=== PATIENT | female | born 1955 | race Caucasian/White ===

== ENCOUNTER 2023-08-19 08:51 | Day surgery (SDC) | payer BC, MEDICARE ==
[2023-08-14 13:09] VITALS: BMI 31.6
[~2023-08-19 08:51] MED LIST: LACTATED RINGERS 1,000 ML IV SCH
[2023-08-19] MEDS ORDERED: LIDOCAINE 1% (10MG/ML) FOR IV START INTRADERMA ONE (09:47)
[2023-08-19 09:51] VITALS: TEMP 97.9
[2023-08-19 09:57] LABS: Glucose,Whole Blood 156 mg/dL (70-110)
[2023-08-19] MEDS ORDERED: PROPOFOL 10 MG/ML 20 ML VIAL IV ONE (10:23)
--- NOTE | 2023-08-19 10:43 | P.PCN ---
Date of Procedure: 08/19/23 Procedure(s) Performed: BRIEF HISTORY: Patient is a 68-year-old pleasant white female scheduled for an elective colonoscopy as a part of screening for colon cancer PROCEDURE PERFORMED: Colonoscopy. PREOPERATIVE DIAGNOSIS: Screening for colon cancer. . IV sedation per Anesthesia. PROCEDURE: After informed consent was obtained, the patient, was brought into the endoscopy unit. IV sedation was administered by Anesthesia under continuous monitoring. Digital rectal examination was normal. Initially the Olympus CF-160 flexible video colonoscope was then inserted in the rectum, gradually advanced into the cecum without any difficulty. Careful examination was performed as the scope was gradually being withdrawn. Ileocecal valve and the appendiceal orifice were visualized and appeared normal. Prep was excellent. Mucosa of the cecum, ascending colon, transverse colon, descending colon, sigmoid colon, and rectum appeared normal. Scattered sigmoid diverticulosis Retroflexion was performed in the rectum and no lesions were seen. The patient tolerated the procedure well. IMPRESSION: Normal-appearing colon from rectum to cecum with no evidence of colorectal neoplasia. Sigmoid diverticulosis. RECOMMENDATIONS: Findings of this examination were discussed with the patient as well as a family. She was advised to have a repeat screening colonoscopy in 10 years..
[2023-08-19 11:13] VITALS: BP 141/83; PULSE 91; RESP 16
== END 2023-08-19 11:16 | disposition home or self-care (01) ==
LOC: ORWHC2ENDO 08:51
PROVIDERS: ATTEND Internal Medicine Gastroenterology
DX: Z12.11 Encounter for screening for malignant neoplasm of colon (principal); K57.30 Diverticulosis of large intestine without perforation or abscess without bleeding; I10 Essential (primary) hypertension; E78.5 Hyperlipidemia, unspecified; E11.9 Type 2 diabetes mellitus without complications; K21.9 Gastro-esophageal reflux disease without esophagitis; M19.90 Unspecified osteoarthritis, unspecified site; Z79.899 Other long term (current) drug therapy
CPT/HCPCS: G0121; J2704; 45378

== ENCOUNTER → 2024-01-27 | Outpatient (CLI) | payer MEDICARE ==
--- NOTE | 2024-01-31 15:50 | US ---
EXAMINATION TYPE: US kidneys/renal and bladder DATE OF EXAM: 01/27/2024 COMPARISON: US renal 03/20/2016 CLINICAL INDICATION: Female, 68 years old with history of N18.30 CHRONIC KIDNEY DISEASE, STAGE 3 UNSP ECIFIED; CKD EXAM MEASUREMENTS: Right Kidney: 10.6 x 4.8 x 5.1 cm Left Kidney: 13.7 x 6.0 x 6.0 cm Right Kidney: Small cyst mid= 1.3 x 1.2 x 1.3 cm, no evidence of hydro Left Kidney: Moderate to severe hydro Bladder: wnl Bilateral Jets seen: Only right jet visualized Cortical medullary differentiation is maintained bilaterally. No hydronephrosis involving the right k idney. Small simple cysts within the right mid kidney measuring up to 1.3 cm. [id number] hydr onephrosis involving the left kidney. No solid mass identified within either kidney. No nephrolithias is. Urinary bladder is anechoic with only the right ureteral jet visualized. IMPRESSION: 1. Moderate to severe left hydronephrosis. Consider further evaluation with CT urogram. 2. Small simple right renal cyst.
== END | disposition home or self-care (01) ==
LOC: RADUSWWP 16:00
PROVIDERS: ATTEND Internal Medicine Nephrology
DX: N18.30 Chronic kidney disease, stage 3 unspecified (principal); N13.30 Unspecified hydronephrosis; N28.1 Cyst of kidney, acquired
CPT/HCPCS: 76770

== ENCOUNTER → 2024-02-16 | Outpatient (CLI) | payer MEDICARE ==
--- NOTE | 2024-02-16 12:27 | CT ---
EXAMINATION TYPE: CT abdomen pelvis wo con DATE OF EXAM: 02/16/2024 COMPARISON: 01/27/2024 HISTORY: HYDRO SEEN ON US CT DLP: 1057 mGycm Examination of the solid and hollow viscera is limited given the lack of contrast. FINDINGS: LUNG BASES: No evidence for nodule. No evidence for infiltrate. LIVER/GB: The gallbladder is unremarkable. No space-occupying hepatic lesion. PANCREAS: No pancreatic mass identified. No inflammatory process seen. SPLEEN: No evidence for splenomegaly. No intrasplenic lesions seen. ADRENALS: No adrenal nodules identified. No evidence for thickening. KIDNEYS: Severe left-sided hydronephrosis to the level of the left UPJ. No obstructing calculus seen. This may reflect congenital UPJ obstruction versus acquired UPJ obstruction. There is renal parenchy mal thinning indicating chronic process. No right-sided hydronephrosis. Nonobstructing calculus midpo le left kidney measuring 3 mm. The left ureter is of normal caliber. Urinary bladder is not ideally d istended. There may be minimal wall thickening. BOWEL: Appendix has a normal appearance. No evidence of bowel obstruction. No inflammatory process. Lymph nodes: No evidence for adenopathy greater than 1 cm. Abdominal aorta: Atheromatous changes seen. No evidence for aneurysm. Genital organs: Hysterectomy changes noted. Complex left ovarian mass with cystic components and thic kened septae. Neoplasm is not excluded. Ultrasound is advised. Other: No significant abnormality. IMPRESSION: 1.Severe left-sided hydronephrosis to the level of the left UPJ. No obstructing calculus seen. This m ay reflect congenital UPJ obstruction versus acquired UPJ obstruction. There is renal parenchymal thi nning indicating chronic process. 2.Complex left ovarian mass with cystic components and thickened septae. Neoplasm is not excluded. Ul trasound is advised.
== END | disposition home or self-care (01) ==
LOC: RADCTMAIN 11:24
PROVIDERS: ATTEND Urology
DX: N13.30 Unspecified hydronephrosis (principal)
CPT/HCPCS: 74176

== ENCOUNTER → 2024-02-25 | Outpatient (CLI) | payer MEDICARE ==
--- NOTE | 2024-02-26 08:59 | US ---
EXAMINATION TYPE: US transvaginal DATE OF EXAM: 02/25/2024 COMPARISON: CT CLINICAL INDICATION: Female, 68 years old with history of R19.09 OTHER INTRA-ABDOMINAL AND PELVIC SWE LLING,; Abnormal CT- LO lesion, RO and uterus removed TECHNIQUE: Transvaginal (TV) Date of LMP: Unknown EXAM MEASUREMENTS: Left Ovary: 4.8 x 4.4 x 3.8 cm 1. Uterus: Surgically absent 2. Endometrium: Surgically absent 3. Right Ovary: Surgically absent 4. Left Ovary: Limited ovarian tissue vs complex lesion = 4.9 x 5.1 x 4.2 cm 5. Bilateral Adnexa: no free fluid 6. Posterior cul-de-sac: no free fluid IMPRESSION: 1. Complex 4.9 x 5.1 x 4.2 cm left adnexal mass which is partially cystic with multiple thick septati ons. The findings are suspicious for neoplasm. MRI of the pelvis or surgical intervention is recommen ded. 2. Surgical absence of the ureters and right ovary. 3. No free fluid in the cul-de-sac.
== END | disposition home or self-care (01) ==
LOC: RADUSWWP 14:53
PROVIDERS: ATTEND Family Medicine
DX: R19.09 Other intra-abdominal and pelvic swelling, mass and lump (principal)
CPT/HCPCS: 76830

== ENCOUNTER → 2024-03-09 | Outpatient (CLI) | payer MEDICARE ==
--- NOTE | 2024-03-17 17:58 | MM ---
Reason for Exam: Screening (asymptomatic). Last screening mammogram was performed 12 month(s) ago. Patient History: Menarche at age 15. First Full-Term at age 23. Right ovary removed at age 38. Hysterectomy at age 38. Maternal grandmother had breast cancer, age 58. Risk Values: Roz 5 year model risk: 1.4%. NCI Lifetime model risk: 4.8%. Prior Study Comparison: 09/12/2020 Bilateral MG 3D screening mammo w/cad, Unknown. 11/28/2021 Bilateral MG 3D screening mammo w/cad, Unknown. 03/06/2023 Bilateral MG 3D screening mammo w/cad, Unknown. Tissue Density: There are scattered areas of fibroglandular density. Findings: Analyzed By CAD. The pattern is symmetrical. Small focal asymmetry in the right breast is small in comparison benign calcifications left breast. No significant interval change No suspicious groups of microcalcifications., spiculated or lobular masses, architectural distortion or other secondary signs of malignancy are mammographically apparent. Overall Assessment: Benign, BI-RAD 2 Management: Screening Mammogram of both breasts in 1 year. A negative mammogram report should not preclude additional follow up of suspicious palpable abnormalities. Patient should continue monthly self breast exam. A clinical breast exam by your physician is recommended on an annual basis and results should be correlated with mammographic findings. Note on Roz scores and lifetime risk: 1. A Roz score greater than 3% is considered moderate risk. If this is the case, consider specialist referral to assess eligibility for a risk reducing agent. 2. If overall lifetime risk for the development of breast cancer is 20% or higher, the patient may qualify for future screening with alternating mammogram and breast MRI. Electronically signed and approved by: Mohan Wood D.O. Radiologis
== END | disposition home or self-care (01) ==
LOC: RADMAMWWP 09:08
PROVIDERS: ATTEND Family Medicine
DX: Z12.31 Encounter for screening mammogram for malignant neoplasm of breast (principal); R92.323 Mammographic fibroglandular density, bilateral breasts; Z80.3 Family history of malignant neoplasm of breast
CPT/HCPCS: 77063; 77067

== ENCOUNTER → 2024-04-04 | Outpatient (CLI) | payer MEDICARE ==
--- NOTE | 2024-05-18 14:11 | NM ---
Patient Cande Alfaro ID [id number] Order # Procedure NM RENAL SCAN-LASIK EXAMINATION TYPE: NM lasix renogram DATE OF EXAM: 04/12/2024 COMPARISON: THIS EXAM WAS READ DURING PACS DOWNTIME, NO PRIORS AVAILABLE. CLINICAL INDICATION: N13.30 Hydronephrosis Hx: Left flank pain with possible hydronephrosis Following administration of 10.50 mCi Tc 99m MAG3 with 20mg Lasix. Immediate images post injection FINDINGS: Split Function L Kidney 28.8% L T 1/2 - NA R Kidney 71.2% R T 1/2 - NA TMakL - NA T MakE - 5.5 minutes IMPRESSION: 1. Poor function of the left kidney compared to left with no response to Lasix likely due to poor pe rfusion. 2. Dilated nonobstructed right renal collecting system.
== END | disposition home or self-care (01) ==
LOC: RADNMMAIN 12:53
PROVIDERS: ATTEND Urology
DX: N13.30 Unspecified hydronephrosis (principal)
CPT/HCPCS: 78708; A9562

== ENCOUNTER 2024-05-25 06:13 | Inpatient (IN) | payer MEDICARE ==
[2024-05-25 06:21] LABS: Glucose,Whole Blood 278 mg/dL (70-110)
--- NOTE | 2024-05-25 06:38 | ED ---
General Adult HPI - General Chief complaint: Fall Stated complaint: Fall Time Seen by Provider: 05/25/24 06:34 Source: patient, family, EMS, RN notes reviewed Mode of arrival: ambulatory Limitations: no limitations - History of Present Illness Initial comments: 69-year-old female presented to the ER via EMS with a chief complaint of weakness/fall. Patient diagnosed with a UTI by PCP yesterday and started on Ceftin. Patient states she has taken 2 doses of antibiotic. Throughout the night she started to feel extremely weak and dizzy. She was running low-grade temperatures at home. Patient states yesterday PCP told her she is close to sepsis and instructed her to come to the ER for any change in her condition. She does report lower abdominal pain but believes this is from the UTI. Pain is sharp in nature. She has not taken anything for pain at this time. Patient does report she has been following up with nephrology, Dr. Bangura due to kidney function and Dr. Carballo. Patient underwent lasix renogram approximately 2 weeks ago and was found to have poor left kidney function. Family states she appears "out of it". She denies an actual fall as she lowered herself to the ground. Denies head injury or blood thinner use. Denies any other injuries. Denies any chest pain, shortness of breath, constipation/diarrhea or peripheral edema. - Related Data Home Medications Medication Instructions Recorded Confirmed Atorvastatin [Lipitor] 80 mg PO HS 08/14/23 08/19/23 Empagliflozin [Jardiance] 25 mg PO 1700 08/14/23 08/19/23 Febuxostat 40 mg PO 1700 08/14/23 08/19/23 Finerenone [Kerendia] 20 mg PO 1700 08/14/23 08/19/23 Linagliptin [Tradjenta] 5 mg PO 1700 08/14/23 08/19/23 Losartan Potassium [Cozaar] 100 mg PO 1700 08/14/23 08/19/23 Omeprazole 40 mg PO 1700 08/14/23 08/19/23 Cefuroxime [Ceftin] 250 mg PO BID 05/25/24 05/25/24 Semaglutide [Ozempic] 2 mg SQ WE 05/25/24 05/25/24 atenoloL [Tenormin] 25 mg PO HS 05/25/24 05/25/24 Allergies Allergy/AdvReac Type Severity Reaction Status Date / Time allopurinol Allergy Rash/Hives Verified 05/25/24 08:05 Penicillins Allergy Rash/Hives Verified 05/25/24 08:05 shellfish derived [Shellfish] Allergy Anaphylaxis Verified 05/25/24 08:05 Review of Systems ROS Statement: Those systems with pertinent positive or pertinent negative responses have been documented in the HPI. ROS Other: All systems not noted in ROS Statement are negative. Past Medical History Past Medical History: Diabetes Mellitus, GERD/Reflux, Hyperlipidemia, Hypertension, Osteoarthritis (OA) Additional Past Medical History / Comment(s): "Kidney number off by 10/10s - now preventive medications and scheduled to see Conveyor System Operator 09/30/23". History of Any Multi-Drug Resistant Organisms: None Reported Past Surgical History: Hysterectomy Additional Past Surgical History / Comment(s): Colonoscopy X2. Past Anesthesia/Blood Transfusion Reactions: No Reported Reaction Past Psychological History: No Psychological Hx Reported Smoking Status: Former smoker Past Alcohol Use History: None Reported Past Drug Use History: None Reported - Past Family History Mother Family Medical History: No Reported History General Exam Limitations: no limitations General appearance: alert, in no apparent distress Respiratory exam: Present: normal lung sounds bilaterally Cardiovascular Exam: Present: normal rhythm, tachycardia, normal heart sounds GI/Abdominal exam: Present: soft, tenderness (suprapubic), normal bowel sounds Extremities exam: Present: normal inspection, full ROM, normal capillary refill. Absent: tenderness, pedal edema, joint swelling, calf tenderness Back exam: Present: normal inspection Neurological exam: Present: alert, oriented X3, CN II-XII intact Skin exam: Present: warm, intact, normal color, diaphoretic Course Vital Signs 05/25/24 05/25/24 05/25/24 06:14 07:05 08:02 Temperature 100.8 F H Pulse Rate 140 H 129 H 120 H Respiratory 18 18 18 Rate Blood Pressure 129/80 143/67 143/67 O2 Sat by Pulse 98 99 96 Oximetry 05/25/24 08:04 Temperature 99.2 F Pulse Rate Respiratory Rate Blood Pressure O2 Sat by Pulse Oximetry - Reevaluation(s) Reevaluation #1: 05/25/24 06:37 Patient met sepsis criteria at 0637. 05/25/24 07:49 Antibiotics ordered at 749 05/25/24 08:13 Case discussed with rn production urology, Dr. Carballo. He states to admit patient to medicine and he will follow patient's hospital course. 05/25/24 08:18 Discussed with [facility] [place] physician, Dr. Govea for admission. EKG Findings - EKG Comments: EKG Findings:: EKG taken at 6: 16 showing a sinus tachycardia acute ST segment elevations or depressions. There is in V1 and V2. No acute abnormalities. Ventricular rate 134, ND interval 100, QRS duration 89, QT/QTc 271/350 Medical Decision Making - Medical Decision Making Was pt. sent in by a medical professional or institution (, PA, [employer] F[employer]ER [employer] DRAINER, urgent care, hospital, or snf...) When possible be specific @ -No Did you speak to anyone other than the patient for history (EMS, parent, family, police, friend...)? What history was obtained from this source @ - aiding in HPI and PMHx. Did you review nursing and triage notes (agree or disagree)? Why? @ -I reviewed and agree with nursing and triage notes Were old charts reviewed (outside hosp., previous admission, EMS record, old EKG, old radiological studies, urgent care reports/EKG's, snf records)? Report findings @ -No old charts were reviewed Differential Diagnosis (chest pain, altered mental status, abdominal pain women, abdominal pain men, vaginal bleeding, weakness, fever, dyspnea, syncope, headache, dizziness, GI bleed, back pain, seizure, CVA, palpatations, mental health, musculoskeletal)? @ -Differential Fever:Pneumonia, viral URI, endocarditis, myocarditis, pericarditis, otitis, sinusitis, peritonsillar Abscess, retropharyngeal Abscess, epiglottitis, peritonitis, appendicitis, Sofi cystitis, diverticulitis, hepatitis, colitis, UTI, PID, TOA, pyelonephritis, prostatitis, epididymitis, meningitis, encephalitis, pulmonary embolism, CVA, thyroid storm, pancreatitis, adrenal crisis, cavernous sinus thrombosis, this is not meant to be an all- inclusive list. EKG interpreted by me (3pts min.). @ -As above X-rays interpreted by me (1pt min.). @ -Chest x-ray interpreted me negative for acute cardiopulmonary process CT interpreted by me (1pt min.). @ -CT abdomen pelvis showing a dilated left renal collecting system unknown etiology. Diverticulosis without evidence of diverticulitis. U/S interpreted by me (1pt. min.). @ -[None done What testing was considered but not performed or refused? (CT, X-rays, U/S, labs)? Why? @ -None What meds were considered but not given or refused? Why? @ -None Did you discuss the management of the patient with other professionals (professionals i.e. , PA, [employer] D[employer]ER, lab, RT, psych nurse, clinical social worker, lead data architect, teacher, bsa/aml compliance officer, shoe caser)? Give summary @ -Yes, case discussed with , rn production urology, for consult. Admission discussed with [facility] physician, Dr. Govea for admission. Was smoking cessation discussed for >3mins.? @ -No Was critical care preformed (if so, how long)? @ -Yes, 35 minutes Were there social determinants of health that impacted care today? How? (Homelessness, low income, unemployed, alcoholism, drug addiction, transp ortation, low edu. Level, literacy, decrease access to med. care, long term, rehab)? @ -No Was there de-escalation of care discussed even if they declined (Discuss DNR or withdrawal of care, Hospice)? DNR status @ -No What co-morbidities impacted this encounter? (DM, HTN, Smoking, COPD, CAD, Cancer, CVA, ARF, Chemo, Hep., AIDS, mental health diagnosis, sleep apnea, morbid obesity)? @ -Hypertension, DM Was patient admitted / discharged? Hospital course, mention meds given and route, prescriptions, significant lab abnormalities, going to OR and other pertinent info. @ -Admitted. 69-year-old female presented to the ER with a chief complaint of a weakness/fall. History and physical exam completed. Patient febrile upon arrival with a temperature of 100.8, tachycardic at 140, respiratory rate 18, blood pressure 129/80, oxygen saturation 98% on room air. Patient is diaphoretic on exam and seems slightly confused. Patient is ANO x 3. On discussion with patient patient did not actually fall and lowered herself to the ground. Denies any injuries. Exam remarkable for lower abdominal tenderness. Normal bowel sounds. No rebound or guarding. Laboratory studies obtained showing a leukocytosis of 15.5 with a left shift. CMP remarkable for sodium 138, potassium 4.6, chloride 110, carbon dioxide 9. YRIS with a BUN of 45 creatinine 2.74 with a GFR of 17. Lactic 2.6. Urinalysis concern of infection with greater than 182 WBCs and large leukocyte esterases. Urine was sent for culture. Viral swabs negative. Chest x-ray negative. CT abdomen pelvis performed showing a dilation of the left renal collecting system. Unclear etiology. Patient met sepsis criteria at 637 and antibiotics Rocephin, ordered at 0749. Patient received 2 L IV fluid bolus and started on maintenance fluid at 130 cc/h. Blood cultures obtained. Adult blood culture tubes are currently out of stock so pediatric tube was used. P.O. Tylenol for fever with improvement. Admission discussed with [facility] physician, Dr. Govea for further treatment of sepsis and UTI. Case discussed with on-call urology, Dr. Carballo, who advised on admission to medicine and he will follow patient's hospital course. Patient agreeable for admission. Patient admitted in stable condition. Case discussed with ED attending, Dr. Guerrero. Undiagnosed new problem with uncertain prognosis? @ -Yes Drug Therapy requiring intensive monitoring for toxicity (Heparin, Nitro, Insulin, Cardizem)? @ -No Were any procedures done? @ -No Diagnosis/symptom? @ -Sepsis/UTI/YRIS Acute, or Chronic, or Acute on Chronic? @ -Acute Uncomplicated (without systemic symptoms) or Complicated (systemic symptoms)? @ -Complicated Side effects of treatment? @ -No Exacerbation, Progression, or Severe Exacerbation? @ -No Poses a threat to life or bodily function? How? (Chest pain, [place], [place], pneumonia, PE, COPD, DKA, ARF, appy, cholecystitis, CVA, Diverticulitis, Homicidal, Suicidal, threat to staff... and all critical care pts) @ -Yes, sepsis can lead to endorgan dysfunction which is life-threatening. - Lab Data Result diagrams: 05/25/24 06:52 05/25/24 06:52 Lab Results 05/25/24 05/25/24 05/25/24 Range/Units 06:19 06:52 06:52 WBC 15.5 H (3.8-10.6) k/uL RBC 3.63 L (3.80-5.40) m/uL Hgb 11.6 (11.4-16.0) gm/dL Hct 37.6 (34.0-46.0) % MCV 103.4 H (80.0-100.0) fL MCH 31.8 (25.0-35.0) pg MCHC 30.8 L (31.0-37.0) g/dL RDW 14.6 (11.5-15.5) % Plt Count 312 (150-450) k/uL MPV 8.7 Neutrophils % 86 % Lymphocytes % 7 % Monocytes % 5 % Eosinophils % 0 % Basophils % 0 % Neutrophils # 13.3 H (1.3-7.7) k/uL Lymphocytes # 1.0 (1.0-4.8) k/uL Monocytes # 0.8 (0-1.0) k/uL Eosinophils # 0.0 (0-0.7) k/uL Basophils # 0.1 (0-0.2) k/uL Hypochromasia Moderate Macrocytosis Slight Sodium (137-145) mmol/L Potassium (3.5-5.1) mmol/L Chloride (98-107) mmol/L Carbon Dioxide (22-30) mmol/L Anion Gap mmol/L BUN (7-17) mg/dL Creatinine (0.52-1.04) mg/dL Est GFR (CKD-EPI)AfAm (>60 ml/min/1.73 sqM) Est GFR (CKD-EPI)NonAf (>60 ml/min/1.73 sqM) Glucose (74-99) mg/dL POC Glucose (mg/dL) 278 H (70-110) mg/dL POC Glu Dress Finisher ID Marizol, Ramos Plasma Lactic Acid Kj (0.7-2.0) mmol/L Calcium (8.4-10.2) mg/dL Total Bilirubin (0.2-1.3) mg/dL AST (14-36) U/L ALT (4-34) U/L Alkaline Phosphatase (38-126) U/L Total Protein (6.3-8.2) g/dL Albumin (3.5-5.0) g/dL Urine Color Colorless Urine Appearance Cloudy H (Clear) Urine pH 5.5 (5.0-8.0) Ur Specific Virgil 1.017 (1.001-1.035) Urine Protein 1+ H (Negative) Urine Glucose (UA) 4+ H (Negative) Urine Ketones Negative (Negative) Urine Blood Moderate H (Negative) Urine Nitrite Negative (Negative) Urine Bilirubin Negative (Negative) Urine Urobilinogen <2.0 (<2.0) mg/dL Ur Leukocyte Esterase Large H (Negative) Urine RBC 11 H (0-5) /hpf Urine WBC >182 H (0-5) /hpf Urine WBC Clumps Few H (None) /hpf Ur Squamous Epith Cells 3 (0-4) /hpf Urine Bacteria Few H (None) /hpf Hyaline Casts 1 (0-2) /lpf Urine Mucus Rare H (None) /hpf Influenza Type A (PCR) (Not Detectd) Influenza Type B (PCR) (Not Detectd) RSV (PCR) (Not Detectd) SARS-CoV-2 (PCR) (Not Detectd) 05/25/24 05/25/24 05/25/24 Range/Units 06:52 06:52 06:58 WBC (3.8-10.6) k/uL RBC (3.80-5.40) m/uL Hgb (11.4-16.0) gm/dL Hct (34.0-46.0) % MCV (80.0-100.0) fL MCH (25.0-35.0) pg MCHC (31.0-37.0) g/dL RDW (11.5-15.5) % Plt Count (150-450) k/uL MPV Neutrophils % % Lymphocytes % % Monocytes % % Eosinophils % % Basophils % % Neutrophils # (1.3-7.7) k/uL Lymphocytes # (1.0-4.8) k/uL Monocytes # (0-1.0) k/uL Eosinophils # (0-0.7) k/uL Basophils # (0-0.2) k/uL Hypochromasia Macrocytosis Sodium 138 (137-145) mmol/L Potassium 4.6 (3.5-5.1) mmol/L Chloride 110 H (98-107) mmol/L Carbon Dioxide 9 L* (22-30) mmol/L Anion Gap 19 mmol/L BUN 45 H (7-17) mg/dL Creatinine 2.74 H (0.52-1.04) mg/dL Est GFR (CKD-EPI)AfAm 20 (>60 ml/min/1.73 sqM) Est GFR (CKD-EPI)NonAf 17 (>60 ml/min/1.73 sqM) Glucose 288 H (74-99) mg/dL POC Glucose (mg/dL) (70-110) mg/dL POC Glu Dress Finisher ID Plasma Lactic Acid Kj 2.6 H* (0.7-2.0) mmol/L Calcium 9.7 (8.4-10.2) mg/dL Total Bilirubin 0.7 (0.2-1.3) mg/dL AST 17 (14-36) U/L ALT 11 (4-34) U/L Alkaline Phosphatase 236 H (38-126) U/L Total Protein 5.9 L (6.3-8.2) g/dL Albumin 2.9 L (3.5-5.0) g/dL Urine Color Urine Appearance (Clear) Urine pH (5.0-8.0) Ur Specific Virgil (1.001-1.035) Urine Protein (Negative) Urine Glucose (UA) (Negative) Urine Ketones (Negative) Urine Blood (Negative) Urine Nitrite (Negative) Urine Bilirubin (Negative) Urine Urobilinogen (<2.0) mg/dL Ur Leukocyte Esterase (Negative) Urine RBC (0-5) /hpf Urine WBC (0-5) /hpf Urine WBC Clumps (None) /hpf Ur Squamous Epith Cells (0-4) /hpf Urine Bacteria (None) /hpf Hyaline Casts (0-2) /lpf Urine Mucus (None) /hpf Influenza Type A (PCR) Not Detected (Not Detectd) Influenza Type B (PCR) Not Detected (Not Detectd) RSV (PCR) Not Detected (Not Detectd) SARS-CoV-2 (PCR) Not Detected (Not Detectd) - Radiology Data Radiology results: report reviewed, image reviewed Disposition Clinical Impression: Sepsis, UTI (urinary tract infection), Hyperlactatemia, YRIS (acute kidney injury) Disposition: ADMITTED IP TO THIS [facility] Condition: Stable Referrals: Lowell Page MD [Primary Care Provider] - 1-2 days Time of Disposition: 08:08
[2024-05-25] MEDS: SODIUM CHLORIDE 0.9% 2,000 ML IV STA (07:02)
[2024-05-25] MEDS: ACETAMINOPHEN TAB 500 MG TAB PO STA (07:04)
[2024-05-25] MEDS: SODIUM CHLORIDE 0.9% 1,000 ML IV STA ×3 (07:04→08:24)
[2024-05-25 07:24] LABS: Basophils # (A) 0.1 k/uL (0-0.2); Basophils % (A) 0 %; Eosinophils % (A) 0 %; HCT 37.6 % (34.0-46.0); HGB 11.6 gm/dL (11.4-16.0); Hypochromasia Moderate; Lymphocytes % (A) 7 %; MCH 31.8 pg (25.0-35.0); MCHC 30.8 g/dL (31.0-37.0); MCV 103.4 fL (80.0-100.0); Macrocytosis Slight; Mean Platelet Volume 8.7; Monocytes # (A) 0.8 k/uL (0-1.0); Monocytes % (A) 5 %; Neutrophils # (A) 13.3 k/uL (1.3-7.7); Neutrophils % (A) 86 %; Platelet Count 312 k/uL (150-450); RBC 3.63 m/uL (3.80-5.40); RDW 14.6 % (11.5-15.5); WBC 15.5 k/uL (3.8-10.6)
[2024-05-25 07:30] LABS: ALT 11 U/L (4-34); AST 17 U/L (14-36); African American GFR (CKD) 20 (>60 ml/min/1.73 sqM); Albumin 2.9 g/dL (3.5-5.0); Alkaline Phosphatase 236 U/L (38-126); Anion Gap 19 mmol/L; Blood Urea Nitrogen 45 mg/dL (7-17); Calcium 9.7 mg/dL (8.4-10.2); Chloride 110 mmol/L (98-107); Glucose 288 mg/dL (74-99); Non-African American GFR(CKD) 17 (>60 ml/min/1.73 sqM); Potassium 4.6 mmol/L (3.5-5.1); Sodium 138 mmol/L (137-145); Total Bilirubin 0.7 mg/dL (0.2-1.3); Total Protein 5.9 g/dL (6.3-8.2)
[2024-05-25 07:32] LABS: Appearance,Urine Cloudy (Clear); Bacteria,Urine Few /hpf; Bilirubin,Urine Negative (Negative); Blood,Urine Moderate (Negative); Color,Urine Colorless; Glucose,Urine (UA) 4+ (Negative); Hyaline Casts,Urine 1 /lpf (0-2); Ketones,Urine Negative (Negative); Leukocyte Esterase,Urine Large (Negative); Mucus,Urine Rare /hpf; Nitrite,Urine Negative (Negative); PH, Urine 5.5 (5.0-8.0); Protein,Urine 1+ (Negative); RBC,Urine 11 /hpf (0-5); Specific Gravity,Urine 1.017 (1.001-1.035); Squamous Epithelial Cell,Urine 3 /hpf (0-4); Urobilinogen,Urine <2.0 mg/dL (<2.0); WBC,Urine >182 /hpf (0-5)
[2024-05-25 07:39] LABS: Carbon Dioxide 9 mmol/L (22-30)
--- NOTE | 2024-05-25 07:57 | CT ---
EXAMINATION TYPE: CT abdomen pelvis wo con DATE OF EXAM: 05/25/2024 COMPARISON: 02/16/2024 INDICATION: UTI, abdominal pain, sepsis DLP: 686.8 mGycm, Automated exposure control for dose reduction was used. CONTRAST: 0 mL of Isovue 300. Study performed without Oral Contrast TECHNIQUE: Axial images were obtained from above the diaphragm to the pubic rami in the axial plane a t 5 mm thick sections. Reconstructed images are reviewed on the computer in the coronal plane. FINDINGS: Limited CT sections are obtained the lung bases. The lung bases are clear. CT ABDOMEN: Liver: Normal Spleen: Normal Pancreas: Normal Adrenal glands: The adrenal glands are normal. Gallbladder: Normal Kidneys: No masses are evident. Marked left hydronephrosis is present. Renal pelvis is dilated. Exten ds to the ureteropelvic junction. No obstructing etiology is identified. The distal ureter appears no rmal. No cysts are present. Delayed images were obtained through the kidneys, which remain unremarka ble. Aorta: Vascular calcification is within the aorta. Inferior vena cava: Normal. CT PELVIS: Loops of bowel within the abdomen and pelvis are normal. Diverticular changes are within the sigmoid colon. No inflammatory changes are adjacent. This study without oral contrast. Appendix: Normal as visualized. Urinary bladder: Diffusely thickened wall. This is not distended at this time. Genitourinary structures: Uterus and ovaries are not identified. Osseous structures: No suspicious lytic or sclerotic lesions. IMPRESSION: 1. Markedly dilated left renal collecting system. This appears to be obstructed at the left ureterop elvic junction but of uncertain etiology. Degree of hydronephrosis is increased somewhat over the int erval. 2. Diverticulosis without acute diverticulitis [facility], , 05/25/2024 7:55 AM
--- NOTE | 2024-05-25 07:59 | XR ---
EXAMINATION TYPE: XR chest 2V DATE OF EXAM: 05/25/2024 COMPARISON: None INDICATION: Fever TECHNIQUE: Frontal and lateral views of the chest are obtained. FINDINGS: The heart size is normal. The pulmonary vasculature is normal. The lungs are clear. IMPRESSION: 1. No acute pulmonary process. [facility], , 05/25/2024 7:57 AM
[2024-05-25] MEDS ORDERED: ONDANSETRON 4 MG/2 ML VIAL IVP PRN (08:18)
[2024-05-25] MEDS ORDERED: NALOXONE 0.4 MG/ML 1 ML VIAL IV PRN (08:18)
--- NOTE | 2024-05-25 11:56 | P.NPCON ---
History of Present Illness - Reason for Consult acute renal failure, chronic renal failure - History of Present Illness Reason for consultation: Acute kidney injury on chronic kidney disease History of present illness: Patient is a 69-year-old female seen in renal consultation for acute kidney injury on chronic kidney disease. Patient has chronic kidney disease stage IIIb with baseline creatinine 1.5-1.7 secondary to nephrosclerosis. Patient states she developed dizziness and weakness earlier this week on Thursday and was seen at an urgent care. Patient says she was given Ceftin for UTI. Patient states she progressively got dizzy and weaker and came to the hospital. She denies losing consciousness. Patient states she did drop down to the ground and had to ask for help from family members to get her up. Patient has longstanding history of diabetes. She denies history of coronary artery disease. Patient states due to the flank pain she is been taking Motrin couple of times daily for the last few days. She denies chest pain or shortness of breath. Denies gross hematuria or dysuria. She underwent a CAT scan of the abdomen and pelvis in the ER which showed severe left-sided hydronephrosis. She has been seen by urology. Creatinine was 2.74 on admission. Patient does take losartan, Jardiance as well as currently outpatient. Patient noted to be quite acidotic with a bicarb level of 9. She does admit to having low-grade fever at home. Vital signs are stable. Febrile. General: No acute distress. HEENT: Head exam is unremarkable. LUNGS: No audible rhonchi or wheezes. HEART: Rate and Rhythm are regular. ABDOMEN: Nontender. EXTREMITITES: No edema. Past Medical History Past Medical History: Diabetes Mellitus, GERD/Reflux, Hyperlipidemia, Hypertension, Osteoarthritis (OA) Additional Past Medical History / Comment(s): "Kidney number off by 2/10ths - now preventive medications and scheduled to see Flight Communications Operator 09/30/23". History of Any Multi-Drug Resistant Organisms: None Reported Past Surgical History: Hysterectomy Additional Past Surgical History / Comment(s): Colonoscopy X2. Past Anesthesia/Blood Transfusion Reactions: No Reported Reaction Past Psychological History: No Psychological Hx Reported Smoking Status: Former smoker Past Alcohol Use History: None Reported Past Drug Use History: None Reported - Past Family History Mother Family Medical History: No Reported History Medications and Allergies Home Medications Medication Instructions Recorded Confirmed Type Atorvastatin [Lipitor] 80 mg PO HS 08/14/23 05/25/24 History Empagliflozin [Jardiance] 25 mg PO DAILY 08/14/23 05/25/24 History Febuxostat 40 mg PO DAILY 08/14/23 05/25/24 History Finerenone [Kerendia] 20 mg PO DAILY 08/14/23 05/25/24 History Linagliptin [Tradjenta] 5 mg PO DAILY 08/14/23 05/25/24 History Losartan Potassium [Cozaar] 100 mg PO DAILY 08/14/23 05/25/24 History Omeprazole 40 mg PO DAILY 08/14/23 05/25/24 History Cefuroxime [Ceftin] 250 mg PO BID 05/25/24 05/25/24 History Semaglutide [Ozempic] 2 mg SQ WE 05/25/24 05/25/24 History atenoloL [Tenormin] 25 mg PO HS 05/25/24 05/25/24 History Allergies Allergy/AdvReac Type Severity Reaction Status Date / Time allopurinol Allergy Rash/Hives Verified 05/25/24 08:05 Penicillins Allergy Rash/Hives Verified 05/25/24 08:05 shellfish derived [Shellfish] Allergy Anaphylaxis Verified 05/25/24 08:05 Physical Exam Vitals: Vital Signs Temp Pulse Resp BP Pulse Ox 05/25/24 10:32 112 H 18 124/77 05/25/24 08:04 99.2 F 05/25/24 08:02 120 H 18 143/67 96 05/25/24 07:05 129 H 18 143/67 99 05/25/24 06:14 100.8 F H 140 H 18 129/80 98 Intake and Output 05/24/24 05/25/24 05/25/24 22:59 06:59 14:59 Other: Weight 84.368 kg Results - Lab Results Most recent lab results Calcium 9.7 mg/dL (8.4-10.2) 05/25/24 06:52 05/25/24 06:52 05/25/24 06:52 Assessment and Plan Plan: Assessment: 1. Acute kidney injury secondary to ATN secondary to severe sepsis. Creatinine 2.74 on admission. Also component of obstructive uropathy with severe left- sided hydronephrosis. 2. Chronic kidney disease stage IIIb with baseline creatinine 1.5-1.7 secondary to nephrosclerosis. 3. Metabolic acidosis secondary to acute kidney injury and lactic acidosis. 4. Diabetes mellitus. 5. Left-sided hydronephrosis. Urology following. 6. UTI on antibiotics. Plan: Change IV fluids to isotonic sodium bicarb drip to be run at 100 cc an hour. Strict I's and O's. Await urology recommendations. Hold Jardiance and Kerendia at this time. Avoid nephrotoxins. Continue to monitor renal function and urine output. Thank you for the consultation. I will continue to follow the patient with you during her hospital stay.
[2024-05-25] MEDS: FINERENONE 20 MG PO SCH (12:05)
[2024-05-25] MEDS: DEXTROSE 5% IN WATER 1,000 ML with SODIUM BICARB (1 MEQ/ML) 150 ML IV SCH (13:39)
[2024-05-25] MEDS ORDERED: DEXTROSE 50% SYRINGE 50 ML IVP PRN ×2 (16:50)
--- NOTE | 2024-05-25 17:12 | P.HPIM ---
History of Present Illness H&P Date: 05/25/24 History of Presenting Illness: Patient is a very pleasant 69-year-old female with a past medical history of hypertension, hyperlipidemia, [id number] diabetes mellitus, and stage IIIb chronic kidney disease. Patient presented to the emergency department via EMS with a chief complaint of generalized weakness, fatigue and fall at home. Patient stated she has been undergoing outpatient treatment for UTI by her PCP and has been evaluated by urology and nephrology for poor renal function. Patient states she has been experiencing increased weakness and dizziness at home accompanied by low-grade temps. She reports she believes this is secondary to her UTI because she continues to have urinary complaints of urgency and f requency as well as some mild suprapubic pain and discomfort. She denies experiencing any injuries with her fall and denies hitting her head or losing consciousness. She denies having any headache, chest pain, palpitations, shortness of breath, cough or congestion, abdominal pain, nausea, vomiting, or any other complaints. Vital signs upon arrival show blood pressure 129/80, heart rate 140, respiratory rate 18, temp 100.8 F, and SpO2 of 98% on room air. EKG completed showing sinus tachycardia at 134 bpm. Chest x-ray negative for acute cardiopulmonary process. Labs completed and reviewed. CBC showing leukocytosis with WBC count of 15.5 and macrocytosis with MCV of 103.4. BMP showing high anion gap metabolic acidosis and acute kidney injury with chloride of 110, bicarb of 9, anion gap of 19, BUN of 45, creatinine 2.74, and GFR of 17 with baseline creatinine of 1.7. Blood glucose 288. Lactic acid 2.6. Liver profile showing elevated alkaline phosphatase of 236. Urinalysis positive for protein, glucose, blood, and infection. CT abdomen and pelvis without contrast was completed showing a markedly dilated left renal collection system appears to be obstructed at the left ureteropelvic junction and diverticulosis without acute diverticulitis. Patient identifying positive for sepsis and started on IV antibiotics with Rocephin. She was admitted under our services with consul tation to nephrology and urology. Review of systems: Pertinent positives and negatives as discussed in HPI, a complete review of systems was performed and all other systems are negative. Physical exam: Vital signs reviewed and stable. General: Nontoxic, no distress and appears stated age. Derm: Skin warm and dry, normal coloration for ethnicity. Head: Atraumatic, normocephalic and symmetric. Eyes: EOM's intact, no lid lag, and anicteric sclera Mouth: no lip lesions, mucus membranes moist Cardiovascular: regular rate and rhythm with normal S1S2, no murmur, positive posterior tibial pulses bilaterally, and cap refill < 2 seconds. Lungs: Respirations even, regular, and unlabored on room air. Lungs CTA bilaterally, no rhonchi, no rales, no wheezing, and no accessory muscle usage. Abdominal: soft, tenderness reported upon palpation of the suprapubic region. No guarding, no appreciable organomegaly. No CVA tenderness. Ext: ROM intact. No gross muscle atrophy, no edema, no contractures Neuro: Speech clear, face symmetrical and CN II-XII grossly intact with no noted focal neuro deficits Psych: Alert and oriented to person, place, time, and situation. Appropriate and pleasant affect. Assessment and Plan of Care: UTI with sepsis Sinus tachycardia, secondary to sepsis Acute kidney injury on chronic kidney disease stage IIIb Left-sided hydronephrosis with obstructed left ureteropelvic junction High Anion gap metabolic acidosis Lactic acidosis -Neurology following, discussed plan of care. Lean Process Deployment Consultant stating he will manage bicarb infusion. -Urology following. -Continue IV antibiotics with Rocephin 2 g daily pending urine culture and sensitivity report. -Follow-up on urine and blood culture. -Order placed for insertion of Mcclure catheter per recommendations of surplus property disposal agent for strict I's and O's. -Continued close monitoring of renal function with repeat morning labs. -Hold nephrotoxic medications such as losartan. -Continue bicarb infusion at 100 cc/h. 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 Hypertension. -Patient to continue atenolol 25 mg nightly, losartan held at this time secondary to acute kidney injury. Data and imaging reviewed: -As stated above in HPI. The patient is admitted with an anticipated greater than 2 midnight stay for evaluation of UTI with sepsis CODE STATUS: Full code DVT prophylaxis: Heparin Anticipated discharge date: Pending clinical course Anticipated discharge place: Home Patient was seen independently by Nurse Practitioner. This document was prepared using Dragon dictation software. Please allow for errors in special needs caregiver while rare they do occur. I reviewed the documentation as provided by the GALDINO above, who is the original author of this note. I agree with the documented assessment and plan, with the following changes: none Past Medical History Past Medical History: Diabetes Mellitus, GERD/Reflux, Hyperlipidemia, Hypertension, Osteoarthritis (OA) Additional Past Medical History / Comment(s): "Kidney number off by 10/10s - now preventive medications and scheduled to see Lean Process Deployment Consultant 09/30/23". History of Any Multi-Drug Resistant Organisms: None Reported Past Surgical History: Hysterectomy Additional Past Surgical History / Comment(s): Colonoscopy X2. Past Anesthesia/Blood Transfusion Reactions: No Reported Reaction Past Psychological History: No Psychological Hx Reported Smoking Status: Former smoker Past Alcohol Use History: None Reported Past Drug Use History: None Reported - Past Family History Mother Family Medical History: No Reported History Medications and Allergies Home Medications Medication Instructions Recorded Confirmed Type Atorvastatin [Lipitor] 80 mg PO HS 08/14/23 05/25/24 History Empagliflozin [Jardiance] 25 mg PO DAILY 08/14/23 05/25/24 History Febuxostat 40 mg PO DAILY 08/14/23 05/25/24 History Finerenone [Kerendia] 20 mg PO DAILY 08/14/23 05/25/24 History Linagliptin [Tradjenta] 5 mg PO DAILY 08/14/23 05/25/24 History Losartan Potassium [Cozaar] 100 mg PO DAILY 08/14/23 05/25/24 History Omeprazole 40 mg PO DAILY 08/14/23 05/25/24 History Cefuroxime [Ceftin] 250 mg PO BID 05/25/24 05/25/24 History Semaglutide [Ozempic] 2 mg SQ WE 05/25/24 05/25/24 History atenoloL [Tenormin] 25 mg PO HS 05/25/24 05/25/24 History Allergies Allergy/AdvReac Type Severity Reaction Status Date / Time allopurinol Allergy Rash/Hives Verified 05/25/24 08:05 Penicillins Allergy Rash/Hives Verified 05/25/24 08:05 shellfish derived [Shellfish] Allergy Anaphylaxis Verified 05/25/24 08:05 Physical Exam Vitals: Vital Signs Temp Pulse Resp BP Pulse Ox 05/25/24 08:04 99.2 F 05/25/24 08:02 120 H 18 143/67 96 05/25/24 07:05 129 H 18 143/67 99 05/25/24 06:14 100.8 F H 140 H 18 129/80 98 Intake and Output 05/24/24 05/25/24 05/25/24 22:59 06:59 14:59 Other: Weight 84.368 kg Results CBC & Chem 7: 05/30/24 07:35 05/30/24 07:35 Labs: Abnormal Lab Results - Last 24 Hours (Table) 05/25/24 05/25/24 05/25/24 Range/Units 06:19 06:52 06:52 WBC 15.5 H (3.8-10.6) k/uL RBC 3.63 L (3.80-5.40) m/uL MCV 103.4 H (80.0-100.0) fL MCHC 30.8 L (31.0-37.0) g/dL Neutrophils # 13.3 H (1.3-7.7) k/uL Chloride (98-107) mmol/L Carbon Dioxide (22-30) mmol/L BUN (7-17) mg/dL Creatinine (0.52-1.04) mg/dL Glucose (74-99) mg/dL POC Glucose (mg/dL) 278 H (70-110) mg/dL Plasma Lactic Acid Kj (0.7-2.0) mmol/L Alkaline Phosphatase (38-126) U/L Total Protein (6.3-8.2) g/dL Albumin (3.5-5.0) g/dL Urine Appearance Cloudy H (Clear) Urine Protein 1+ H (Negative) Urine Glucose (UA) 4+ H (Negative) Urine Blood Moderate H (Negative) Ur Leukocyte Esterase Large H (Negative) Urine RBC 11 H (0-5) /hpf Urine WBC >182 H (0-5) /hpf Urine WBC Clumps Few H (None) /hpf Urine Bacteria Few H (None) /hpf Urine Mucus Rare H (None) /hpf 05/25/24 05/25/24 Range/Units 06:52 06:52 WBC (3.8-10.6) k/uL RBC (3.80-5.40) m/uL MCV (80.0-100.0) fL MCHC (31.0-37.0) g/dL Neutrophils # (1.3-7.7) k/uL Chloride 110 H (98-107) mmol/L Carbon Dioxide 9 L* (22-30) mmol/L BUN 45 H (7-17) mg/dL Creatinine 2.74 H (0.52-1.04) mg/dL Glucose 288 H (74-99) mg/dL POC Glucose (mg/dL) (70-110) mg/dL Plasma Lactic Acid Kj 2.6 H* (0.7-2.0) mmol/L Alkaline Phosphatase 236 H (38-126) U/L Total Protein 5.9 L (6.3-8.2) g/dL Albumin 2.9 L (3.5-5.0) g/dL Urine Appearance (Clear) Urine Protein (Negative) Urine Glucose (UA) (Negative) Urine Blood (Negative) Ur Leukocyte Esterase (Negative) Urine RBC (0-5) /hpf Urine WBC (0-5) /hpf Urine WBC Clumps (None) /hpf Urine Bacteria (None) /hpf Urine Mucus (None) /hpf
[2024-05-25 17:28] LABS: Glucose,Whole Blood 433 mg/dL (70-110)
[2024-05-25] MEDS: INSULIN ASPART (NovoLOG) 100 UNIT/ML VIAL SQ SCH (17:33)
[2024-05-25] MEDS: ACETAMINOPHEN TAB 325 MG TAB PO PRN (18:02)
[2024-05-25 20:33] LABS: Glucose,Whole Blood 397 mg/dL (70-110)
[2024-05-25] MEDS: ATORVASTATIN 80 MG TAB PO SCH (20:40)
[2024-05-25] MEDS: atenoloL 25 MG TAB PO SCH (20:40)
[2024-05-25] MEDS: HYDROmorphone 1 MG/ML 1 ML SYRINGE IVP PRN (20:47)
--- NOTE | 2024-05-25 20:54 | P.GSCN ---
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 Underwent a left-sided retrograde pyelogram on May 12 which confirmed the finding of a UPJ obstruction with poor drainage of the left kidney. Plan was for her to undergo a left-sided robotic pyeloplasty as an outpatient. She presented to the hospital this morning with chief complaint of fatigue with fevers and chills. Patient was septic on presentation. She un derwent a CT abdomen pelvis that showed evidence of severe left-sided hydronephrosis. At this point she denies any flank pain, but is complaining of generalized fatigue with fevers chills. She was febrile 100.1 and was tachycardic in the 120s to 130 range. Her creatinine was elevated at 2.7. Uri nalysis was consistent with a UTI. She is complaining of urinary frequency with dysuria but denies any gross hematuria. Review of Systems - Constitutional Reports chills, Reports fatigue, Reports fever - EENT Ears, nose, mouth and throat: Denies dysphagia - Cardiovascular Denies chest pain, Denies shortness of breath - Respiratory Denies cough, Denies 7 - Gastrointestinal Reports as per HPI, Reports abdominal pain - Genitourinary Genitourinary: Reports dysuria, Denies flank pain - Integumentary Denies rash, Denies unusual bruising - Neurological Denies headaches, Denies syncope Past Medical History Past Medical History: Diabetes Mellitus, GERD/Reflux, Hyperlipidemia, Hypertension, Osteoarthritis (OA) Additional Past Medical History / Comment(s): "Kidney number off by 2/10ths - now preventive medications and scheduled to see Guest Experience Captain 09/30/23". History of Any Multi-Drug Resistant Organisms: None Reported Past Surgical History: Hysterectomy Additional Past Surgical History / Comment(s): Colonoscopy X2. Past Anesthesia/Blood Transfusion Reactions: No Reported Reaction Past Psychological History: No Psychological Hx Reported Smoking Status: Former smoker Past Alcohol Use History: None Reported Past Drug Use History: None Reported - Past Family History Mother Family Medical History: No Reported History Medications and Allergies Home Medications Medication Instructions Recorded Confirmed Type Atorvastatin [Lipitor] 80 mg PO HS 08/14/23 05/25/24 History Empagliflozin [Jardiance] 25 mg PO DAILY 08/14/23 05/25/24 History Febuxostat 40 mg PO DAILY 08/14/23 05/25/24 History Finerenone [Kerendia] 20 mg PO DAILY 08/14/23 05/25/24 History Linagliptin [Tradjenta] 5 mg PO DAILY 08/14/23 05/25/24 History Losartan Potassium [Cozaar] 100 mg PO DAILY 08/14/23 05/25/24 History Omeprazole 40 mg PO DAILY 08/14/23 05/25/24 History Cefuroxime [Ceftin] 250 mg PO BID 05/25/24 05/25/24 History Semaglutide [Ozempic] 2 mg SQ WE 05/25/24 05/25/24 History atenoloL [Tenormin] 25 mg PO HS 05/25/24 05/25/24 History Allergies Allergy/AdvReac Type Severity Reaction Status Date / Time allopurinol Allergy Rash/Hives Verified 05/25/24 08:05 Penicillins Allergy Rash/Hives Verified 05/25/24 08:05 shellfish derived [Shellfish] Allergy Anaphylaxis Verified 05/25/24 08:05 Surgical - Exam Vital Signs Temp Pulse Resp BP Pulse Ox 100.8 F H 140 H 18 129/80 98 05/25/24 06:14 05/25/24 06:14 05/25/24 06:14 05/25/24 06:14 05/25/24 06:14 - General no distress, no pain - Eyes normal ocular movement, no pale - ENT normal nares, normal mucosa - Respiratory normal expansion, normal respiratory effort left: rales - Abdomen Abdomen: soft, non tender - Psychiatric oriented to time, oriented to person, oriented to place Results - Labs 05/25/24 06:52 05/25/24 06:52 Abnormal Lab Results - Last 24 Hours (Table) 05/25/24 05/25/24 05/25/24 Range/Units 06:19 06:52 06:52 WBC 15.5 H (3.8-10.6) k/uL RBC 3.63 L (3.80-5.40) m/uL MCV 103.4 H (80.0-100.0) fL MCHC 30.8 L (31.0-37.0) g/dL Neutrophils # 13.3 H (1.3-7.7) k/uL Chloride (98-107) mmol/L Carbon Dioxide (22-30) mmol/L BUN (7-17) mg/dL Creatinine (0.52-1.04) mg/dL Glucose (74-99) mg/dL POC Glucose (mg/dL) 278 H (70-110) mg/dL Plasma Lactic Acid Kj (0.7-2.0) mmol/L Alkaline Phosphatase (38-126) U/L Total Protein (6.3-8.2) g/dL Albumin (3.5-5.0) g/dL Urine Appearance Cloudy H (Clear) Urine Protein 1+ H (Negative) Urine Glucose (UA) 4+ H (Negative) Urine Blood Moderate H (Negative) Ur Leukocyte Esterase Large H (Negative) Urine RBC 11 H (0-5) /hpf Urine WBC >182 H (0-5) /hpf Urine WBC Clumps Few H (None) /hpf Urine Bacteria Few H (None) /hpf Urine Mucus Rare H (None) /hpf 05/25/24 05/25/24 05/25/24 Range/Units 06:52 06:52 17:24 WBC (3.8-10.6) k/uL RBC (3.80-5.40) m/uL MCV (80.0-100.0) fL MCHC (31.0-37.0) g/dL Neutrophils # (1.3-7.7) k/uL Chloride 110 H (98-107) mmol/L Carbon Dioxide 9 L* (22-30) mmol/L BUN 45 H (7-17) mg/dL Creatinine 2.74 H (0.52-1.04) mg/dL Glucose 288 H (74-99) mg/dL POC Glucose (mg/dL) 433 H (70-110) mg/dL Plasma Lactic Acid Kj 2.6 H* (0.7-2.0) mmol/L Alkaline Phosphatase 236 H (38-126) U/L Total Protein 5.9 L (6.3-8.2) g/dL Albumin 2.9 L (3.5-5.0) g/dL Urine Appearance (Clear) Urine Protein (Negative) Urine Glucose (UA) (Negative) Urine Blood (Negative) Ur Leukocyte Esterase (Negative) Urine RBC (0-5) /hpf Urine WBC (0-5) /hpf Urine WBC Clumps (None) /hpf Urine Bacteria (None) /hpf Urine Mucus (None) /hpf 05/25/24 Range/Units 20:31 WBC (3.8-10.6) k/uL RBC (3.80-5.40) m/uL MCV (80.0-100.0) fL MCHC (31.0-37.0) g/dL Neutrophils # (1.3-7.7) k/uL Chloride (98-107) mmol/L Carbon Dioxide (22-30) mmol/L BUN (7-17) mg/dL Creatinine (0.52-1.04) mg/dL Glucose (74-99) mg/dL POC Glucose (mg/dL) 397 H (70-110) mg/dL Plasma Lactic Acid Kj (0.7-2.0) mmol/L Alkaline Phosphatase (38-126) U/L Total Protein (6.3-8.2) g/dL Albumin (3.5-5.0) g/dL Urine Appearance (Clear) Urine Protein (Negative) Urine Glucose (UA) (Negative) Urine Blood (Negative) Ur Leukocyte Esterase (Negative) Urine RBC (0-5) /hpf Urine WBC (0-5) /hpf Urine WBC Clumps (None) /hpf Urine Bacteria (None) /hpf Urine Mucus (None) /hpf Diabetes panel 05/25/24 Range/Units 06:52 Sodium 138 (137-145) mmol/L Potassium 4.6 (3.5-5.1) mmol/L Chloride 110 H (98-107) mmol/L Carbon Dioxide 9 L* (22-30) mmol/L BUN 45 H (7-17) mg/dL Creatinine 2.74 H (0.52-1.04) mg/dL Glucose 288 H (74-99) mg/dL Calcium 9.7 (8.4-10.2) mg/dL AST 17 (14-36) U/L ALT 11 (4-34) U/L Alkaline Phosphatase 236 H (38-126) U/L Total Protein 5.9 L (6.3-8.2) g/dL Albumin 2.9 L (3.5-5.0) g/dL Calcium panel 05/25/24 Range/Units 06:52 Calcium 9.7 (8.4-10.2) mg/dL Albumin 2.9 L (3.5-5.0) g/dL Pituitary panel 05/25/24 Range/Units 06:52 Sodium 138 (137-145) mmol/L Potassium 4.6 (3.5-5.1) mmol/L Chloride 110 H (98-107) mmol/L Carbon Dioxide 9 L* (22-30) mmol/L BUN 45 H (7-17) mg/dL Creatinine 2.74 H (0.52-1.04) mg/dL Glucose 288 H (74-99) mg/dL Calcium 9.7 (8.4-10.2) mg/dL Adrenal panel 05/25/24 Range/Units 06:52 Sodium 138 (137-145) mmol/L Potassium 4.6 (3.5-5.1) mmol/L Chloride 110 H (98-107) mmol/L Carbon Dioxide 9 L* (22-30) mmol/L BUN 45 H (7-17) mg/dL Creatinine 2.74 H (0.52-1.04) mg/dL Glucose 288 H (74-99) mg/dL Calcium 9.7 (8.4-10.2) mg/dL Total Bilirubin 0.7 (0.2-1.3) mg/dL AST 17 (14-36) U/L ALT 11 (4-34) U/L Alkaline Phosphatase 236 H (38-126) U/L Total Protein 5.9 L (6.3-8.2) g/dL Albumin 2.9 L (3.5-5.0) g/dL Assessment and Plan Assessment: 69-year-old female with history of left UPJ obstruction, presents with sepsis secondary to UTI. I reviewed her CT scan which showed hydronephrosis, The hydronephrosis chronic. At this time recommend continuing IV antibiotics, will continue to monitor how she progresses, if she fails to improve with IV antibiotics then we will plan on proceeding with a left-sided stent, but if she continues to improve on antibiotics I will hold off on doing a stent. Discussed with her she will eventually require a left-sided pyeloplasty, but given the UTI we will hold off for at least 6 weeks prior to proceeding with that.
[2024-05-25 23:37] LABS: Glucose,Whole Blood 298 mg/dL (70-110)
[2024-05-25] MEDS: HEPARIN SODIUM,PORCINE 5,000 UNIT/ML 1 ML VIAL SQ SCH (23:42)
[2024-05-26 00:21] LABS: Basophils % (A) 0 %; Eosinophils % (A) 0 %; HCT 32.6 % (34.0-46.0); HGB 10.3 gm/dL (11.4-16.0); Hypochromasia Marked; Lymphocytes # (A) 1.3 k/uL (1.0-4.8); Lymphocytes % (A) 8 %; MCH 32.3 pg (25.0-35.0); MCHC 31.6 g/dL (31.0-37.0); MCV 102.3 fL (80.0-100.0); Macrocytosis Slight; Mean Platelet Volume 8.2; Monocytes # (A) 0.7 k/uL (0-1.0); Monocytes % (A) 4 %; Neutrophils # (A) 14.9 k/uL (1.3-7.7); Neutrophils % (A) 86 %; Platelet Count 310 k/uL (150-450); RBC 3.18 m/uL (3.80-5.40); RDW 14.3 % (11.5-15.5); WBC 17.4 k/uL (3.8-10.6)
[2024-05-26 00:23] LABS: ABG Base Excess -5.3 mmol/L; ABG HCO3 20 mmol/L (21-25); ABG Oxygen Saturation 98.8 % (94-97); ABG PCO2 36 mmHg (35-45); ABG PH 7.35 (7.35-7.45); ABG PO2 107 mmHg (83-108); ABG TCO2 21 mmol/L (19-24); Allen Test Performed? Yes
[2024-05-26 00:24] LABS: VBG PH 7.29 (7.31-7.41)
[2024-05-26] MEDS: ACETAMINOPHEN IV (For NPO) 1,000 MG in EMPTY BAG 1 BAG IVPB STA (00:30)
[2024-05-26] MEDS: ACETAMINOPHEN IV (For NPO) 1,000 MG in EMPTY BAG 1 BAG IVPB ONE (00:33)
[2024-05-26 01:03] LABS: ALT 10 U/L (4-34); AST 16 U/L (14-36); African American GFR (CKD) 24 (>60 ml/min/1.73 sqM); Albumin 2.5 g/dL (3.5-5.0); Alkaline Phosphatase 196 U/L (38-126); Anion Gap 8 mmol/L; Blood Urea Nitrogen 41 mg/dL (7-17); Calcium 9.4 mg/dL (8.4-10.2); Carbon Dioxide 17 mmol/L (22-30); Chloride 109 mmol/L (98-107); Glucose 268 mg/dL (74-99); Non-African American GFR(CKD) 21 (>60 ml/min/1.73 sqM); Potassium 4.3 mmol/L (3.5-5.1); Sodium 134 mmol/L (137-145); Total Bilirubin 0.6 mg/dL (0.2-1.3); Total Protein 5.3 g/dL (6.3-8.2)
[2024-05-26] MEDS ORDERED: VANCOMYCIN IV PER PHARMACY 1 EACH MISC MISCELLANE PRN (01:08)
[2024-05-26] MEDS: VANCOMYCIN 1,750 MG in SODIUM CHLORIDE 0.9% 500 ML 500 ML IVPB SCH (01:36)
[2024-05-26] MEDS: MEROPENEM 500 MG in SODIUM CHLORIDE 0.9% 100 ML IVPB SCH (02:04)
[2024-05-26] MEDS: SODIUM CHLORIDE 0.9% 1,000 ML IV ONE (02:12)
--- NOTE | 2024-05-26 04:44 | P.PN ---
Progress Note - Text Progress Note Date: 05/26/24 Informed by the RN that the patient's mentation had changed. She was seen at the bedside. Patient was noted to be lethargic and endorsed ongoing abdominal discomfort. Repeat laboratory evaluation was obtained showing WBC count 17.4 (up from 15.5). Lactic acid also increased from 0.8 up to 1.3. The patient was also noted to have fever of 101 F. The patient's altered mental status is likely secondary to encephalopathy from ongoing sepsis secondary to UTI. The patient had been maintained on ceftriaxone 2 g every 24 hours but continued to have fevers. ABG was also obtained and reviewed showing no hypercapnia. The therapy was stepped up to meropenem and vancomycin renally dosed in setting of decreased creatinine clearance. 1 L normal saline bolus was also ordered.
[2024-05-26 07:45] LABS: Glucose,Whole Blood 300 mg/dL (70-110)
[2024-05-26] MEDS: FEBUXOSTAT 40 MG PO SCH (07:46)
[2024-05-26 08:30] LABS: HCT 30.1 % (34.0-46.0); HGB 9.2 gm/dL (11.4-16.0); Hypochromasia Marked; MCH 31.8 pg (25.0-35.0); MCHC 30.5 g/dL (31.0-37.0); MCV 104.3 fL (80.0-100.0); Macrocytosis Slight; Mean Platelet Volume 8.3; Platelet Count 286 k/uL (150-450); RBC 2.88 m/uL (3.80-5.40); RDW 14.2 % (11.5-15.5); WBC 19.1 k/uL (3.8-10.6)
[2024-05-26] MEDS: PANTOPRAZOLE 40 MG TABLET PO SCH (09:00)
--- NOTE | 2024-05-26 09:11 | P.PN ---
Subjective No acute overnight event, denies any flank pain or gross hematuria. Tachycardia improved this morning, she is afebrile Objective - Vital Signs Vital signs: Vital Signs Temp 98.0 F 05/26/24 06:28 Pulse 82 05/26/24 06:28 Resp 20 05/26/24 06:28 BP 112/74 05/26/24 06:28 Pulse Ox 99 05/26/24 06:28 FiO2 Intake & Output 05/25/24 05/26/24 05/26/24 18:59 06:59 18:59 Output Total 1240 800 Balance -1240 -800 Output: Urine 1240 800 Uretheral ([place]) 420 - Constitutional General appearance: Present: no acute distress - Gastrointestinal General gastrointestinal: Present: soft. Absent: distended, tenderness - Psychiatric Psychiatric: Present: A&O x's 3 - Labs CBC & Chem 7: 05/26/24 07:53 05/26/24 00:02 Labs: Abnormal Lab Results - Last 24 Hours (Table) 05/25/24 05/25/24 05/25/24 Range/Units 17:24 20:31 23:34 WBC (3.8-10.6) k/uL RBC (3.80-5.40) m/uL Hgb (11.4-16.0) gm/dL Hct (34.0-46.0) % MCV (80.0-100.0) fL MCHC (31.0-37.0) g/dL Neutrophils # (1.3-7.7) k/uL ABG HCO3 (21-25) mmol/L ABG O2 Saturation (94-97) % VBG pH (7.31-7.41) VBG HCO3 (24-28) mmol/L Hemoglobin (11.4-16.0) gm/dL Sodium (137-145) mmol/L Chloride (98-107) mmol/L Carbon Dioxide (22-30) mmol/L BUN (7-17) mg/dL Creatinine (0.52-1.04) mg/dL Glucose (74-99) mg/dL POC Glucose (mg/dL) 433 H 397 H 298 H (70-110) mg/dL Alkaline Phosphatase (38-126) U/L Total Protein (6.3-8.2) g/dL Albumin (3.5-5.0) g/dL 05/26/24 05/26/24 05/26/24 Range/Units 00:02 00:02 00:02 WBC 17.4 H (3.8-10.6) k/uL RBC 3.18 L (3.80-5.40) m/uL Hgb 10.3 L (11.4-16.0) gm/dL Hct 32.6 L (34.0-46.0) % MCV 102.3 H (80.0-100.0) fL MCHC (31.0-37.0) g/dL Neutrophils # 14.9 H (1.3-7.7) k/uL ABG HCO3 (21-25) mmol/L ABG O2 Saturation (94-97) % VBG pH 7.29 L (7.31-7.41) VBG HCO3 20 L (24-28) mmol/L Hemoglobin (11.4-16.0) gm/dL Sodium 134 L (137-145) mmol/L Chloride 109 H (98-107) mmol/L Carbon Dioxide 17 L (22-30) mmol/L BUN 41 H (7-17) mg/dL Creatinine 2.31 H (0.52-1.04) mg/dL Glucose 268 H (74-99) mg/dL POC Glucose (mg/dL) (70-110) mg/dL Alkaline Phosphatase 196 H (38-126) U/L Total Protein 5.3 L (6.3-8.2) g/dL Albumin 2.5 L (3.5-5.0) g/dL 05/26/24 05/26/24 05/26/24 Range/Units 00:19 07:44 07:53 WBC 19.1 H (3.8-10.6) k/uL RBC 2.88 L (3.80-5.40) m/uL Hgb 9.2 L (11.4-16.0) gm/dL Hct 30.1 L (34.0-46.0) % MCV 104.3 H (80.0-100.0) fL MCHC 30.5 L (31.0-37.0) g/dL Neutrophils # (1.3-7.7) k/uL ABG HCO3 20 L (21-25) mmol/L ABG O2 Saturation 98.8 H (94-97) % VBG pH (7.31-7.41) VBG HCO3 (24-28) mmol/L Hemoglobin 9.6 L (11.4-16.0) gm/dL Sodium (137-145) mmol/L Chloride (98-107) mmol/L Carbon Dioxide (22-30) mmol/L BUN (7-17) mg/dL Creatinine (0.52-1.04) mg/dL Glucose (74-99) mg/dL POC Glucose (mg/dL) 300 H (70-110) mg/dL Alkaline Phosphatase (38-126) U/L Total Protein (6.3-8.2) g/dL Albumin (3.5-5.0) g/dL Microbiology - Last 24 Hours (Table) 05/25/24 06:52 Urine Culture - Final Urine,Catheterized Assessment and Plan Assessment: 69-year-old female with history of left UPJ obstruction, presents with sepsis s econdary to UTI. I reviewed her CT scan which showed hydronephrosis, The hydronephrosis chronic. At this time recommend continuing IV antibiotics, will continue to monitor how she progresses, she is improved this morning. Will hold off on any stent insertion at this time
[2024-05-26 10:13] LABS: ALT 11 U/L (4-34); AST 21 U/L (14-36); African American GFR (CKD) 26 (>60 ml/min/1.73 sqM); Albumin 2.1 g/dL (3.5-5.0); Alkaline Phosphatase 157 U/L (38-126); Anion Gap 10 mmol/L; Blood Urea Nitrogen 43 mg/dL (7-17); Calcium 8.6 mg/dL (8.4-10.2); Carbon Dioxide 18 mmol/L (22-30); Chloride 107 mmol/L (98-107); Glucose 259 mg/dL (74-99); Magnesium 1.9 mg/dL (1.6-2.3); Non-African American GFR(CKD) 23 (>60 ml/min/1.73 sqM); Potassium 3.9 mmol/L (3.5-5.1); Sodium 135 mmol/L (137-145); Total Bilirubin 0.5 mg/dL (0.2-1.3); Total Protein 4.8 g/dL (6.3-8.2)
--- NOTE | 2024-05-26 10:47 | P.PN ---
Subjective Patient is seen in follow-up for acute kidney injury on chronic kidney disease. Renal function improving. On bicarb drip. Nonoliguric. Oral intake fair. Vital signs are stable. General: No acute distress. HEENT: Head exam is unremarkable. On nasal cannula. LUNGS: No audible rhonchi or wheezes. HEART: Rate and Rhythm are regular. ABDOMEN: Nontender. EXTREMITITES: No edema. Objective - Vital Signs Vital signs: Vital Signs Temp 98.0 F 05/26/24 06:28 Pulse 82 05/26/24 06:28 Resp 20 05/26/24 06:28 BP 112/74 05/26/24 06:28 Pulse Ox 99 05/26/24 06:28 FiO2 Intake & Output 05/25/24 05/26/24 05/26/24 18:59 06:59 18:59 Output Total 1240 800 Balance -1240 -800 Output: Urine 1240 800 Uretheral ([place]) 420 - Labs CBC & Chem 7: 05/26/24 07:53 05/26/24 09:30 Labs: Abnormal Lab Results - Last 24 Hours (Table) 05/25/24 05/25/24 05/25/24 Range/Units 17:24 20:31 23:34 WBC (3.8-10.6) k/uL RBC (3.80-5.40) m/uL Hgb (11.4-16.0) gm/dL Hct (34.0-46.0) % MCV (80.0-100.0) fL MCHC (31.0-37.0) g/dL Neutrophils # (1.3-7.7) k/uL ABG HCO3 (21-25) mmol/L ABG O2 Saturation (94-97) % VBG pH (7.31-7.41) VBG HCO3 (24-28) mmol/L Hemoglobin (11.4-16.0) gm/dL Sodium (137-145) mmol/L Chloride (98-107) mmol/L Carbon Dioxide (22-30) mmol/L BUN (7-17) mg/dL Creatinine (0.52-1.04) mg/dL Glucose (74-99) mg/dL POC Glucose (mg/dL) 433 H 397 H 298 H (70-110) mg/dL Alkaline Phosphatase (38-126) U/L Total Protein (6.3-8.2) g/dL Albumin (3.5-5.0) g/dL 05/26/24 05/26/24 05/26/24 Range/Units 00:02 00:02 00:02 WBC 17.4 H (3.8-10.6) k/uL RBC 3.18 L (3.80-5.40) m/uL Hgb 10.3 L (11.4-16.0) gm/dL Hct 32.6 L (34.0-46.0) % MCV 102.3 H (80.0-100.0) fL MCHC (31.0-37.0) g/dL Neutrophils # 14.9 H (1.3-7.7) k/uL ABG HCO3 (21-25) mmol/L ABG O2 Saturation (94-97) % VBG pH 7.29 L (7.31-7.41) VBG HCO3 20 L (24-28) mmol/L Hemoglobin (11.4-16.0) gm/dL Sodium 134 L (137-145) mmol/L Chloride 109 H (98-107) mmol/L Carbon Dioxide 17 L (22-30) mmol/L BUN 41 H (7-17) mg/dL Creatinine 2.31 H (0.52-1.04) mg/dL Glucose 268 H (74-99) mg/dL POC Glucose (mg/dL) (70-110) mg/dL Alkaline Phosphatase 196 H (38-126) U/L Total Protein 5.3 L (6.3-8.2) g/dL Albumin 2.5 L (3.5-5.0) g/dL 05/26/24 05/26/24 05/26/24 Range/Units 00:19 07:44 07:53 WBC 19.1 H (3.8-10.6) k/uL RBC 2.88 L (3.80-5.40) m/uL Hgb 9.2 L (11.4-16.0) gm/dL Hct 30.1 L (34.0-46.0) % MCV 104.3 H (80.0-100.0) fL MCHC 30.5 L (31.0-37.0) g/dL Neutrophils # (1.3-7.7) k/uL ABG HCO3 20 L (21-25) mmol/L ABG O2 Saturation 98.8 H (94-97) % VBG pH (7.31-7.41) VBG HCO3 (24-28) mmol/L Hemoglobin 9.6 L (11.4-16.0) gm/dL Sodium (137-145) mmol/L Chloride (98-107) mmol/L Carbon Dioxide (22-30) mmol/L BUN (7-17) mg/dL Creatinine (0.52-1.04) mg/dL Glucose (74-99) mg/dL POC Glucose (mg/dL) 300 H (70-110) mg/dL Alkaline Phosphatase (38-126) U/L Total Protein (6.3-8.2) g/dL Albumin (3.5-5.0) g/dL 05/26/24 Range/Units 09:30 WBC (3.8-10.6) k/uL RBC (3.80-5.40) m/uL Hgb (11.4-16.0) gm/dL Hct (34.0-46.0) % MCV (80.0-100.0) fL MCHC (31.0-37.0) g/dL Neutrophils # (1.3-7.7) k/uL ABG HCO3 (21-25) mmol/L ABG O2 Saturation (94-97) % VBG pH (7.31-7.41) VBG HCO3 (24-28) mmol/L Hemoglobin (11.4-16.0) gm/dL Sodium 135 L (137-145) mmol/L Chloride (98-107) mmol/L Carbon Dioxide 18 L (22-30) mmol/L BUN 43 H (7-17) mg/dL Creatinine 2.16 H (0.52-1.04) mg/dL Glucose 259 H (74-99) mg/dL POC Glucose (mg/dL) (70-110) mg/dL Alkaline Phosphatase 157 H (38-126) U/L Total Protein 4.8 L (6.3-8.2) g/dL Albumin 2.1 L (3.5-5.0) g/dL Microbiology - Last 24 Hours (Table) 05/25/24 06:52 Urine Culture - Final Urine,Catheterized Assessment and Plan Plan: Assessment: 1. Acute kidney injury secondary to ATN secondary to severe sepsis. Creatinine 2.74 on admission - 2.16 today. Also component of obstructive uropathy with severe left-sided hydronephrosis. 2. Chronic kidney disease stage IIIb with baseline creatinine 1.5-1.7 secondary to nephrosclerosis. 3. Metabolic acidosis secondary to acute kidney injury and lactic acidosis. Better with bicarb drip. 4. Diabetes mellitus. 5. Left-sided hydronephrosis. Chronic in nature. Urology following. No surgical interventions planned at this time. 6. UTI on antibiotics. Plan: Maintain bicarb drip. Strict I's and O's. Continue to hold Jardiance and Kerendia at this time. Avoid nephrotoxins. Continue to monitor renal function and urine output. Follow-up cultures.
[2024-05-26 11:56] LABS: Glucose,Whole Blood 369 mg/dL (70-110)
--- NOTE | 2024-05-26 13:37 | P.PN ---
Subjective Progress Note Date: 05/26/24 69-year-old female with PMH of HTN, HLD, [id number] diabetes mellitus, and stage IIIb CKD presented to the emergency department via EMS with a chief complaint of generalized weakness, fatigue and fall at home. Patient stated she has been undergoing outpatient treatment for UTI by her PCP and has been evaluated by urology and nephrology for poor renal function. Patient reported low-grade fevers along with urinary urgency and frequency as well as some mild suprapubic pain and discomfort. She denies experiencing any injuries with her fall and denies hitting her head or losing consciousness. Vital signs upon arrival show BP 129/80, HR 140, RR 18, T 100.8 F, and SpO2 of 98% on RA. EKG showed sinus tachycardia at 134 bpm. Chest x-ray negative for acute cardiopulmonary process. CBC showed WBC count of 15.5 and MCV of 103.4. BMP showed Cl 110, bicarb of 9, anion gap of 19, BUN of 45, Cr 2.74, and GFR of 17 with baseline creatinine of 1.7. Blood glucose 288. Lactic acid 2.6. Liver profile showing elevated alk phos of 236. UA showed large LE. CT AP without contrast showed a markedly dilated left renal collection system appears to be obstructed at the left ureteropelvic junction. Patient required 3L NS bolus and was started on Rocephin and admitted for further workup and management with consultation to nephrology and urology. Patient got more lethargic overnight. Repeat CBC showed worsening leukocytosis of 17.4 and T 101F. ABG showed pH 7.35, pCO2 36. She was given an additional 1L NS bolus and antibiotics switched to Meropenem and Vancomycin. 05/26 Patient was seen and examined. She is slow to respond but responding questions appropriately. She reports suprapubic pain and dysuria. Urology recommends continued IV antibiotics, hydronephrosis is chronic, hold stent insertion at this time. Nephrology recommends starting bicarb drip. CBC and CMP significant for WBC 19.1, RBC 2.88, Hg 9.2, Hct 30.1, MCV 104.3, Na 135, bicarb 18, BUN 43, Cr 2.16, glu 259, alk phos 157, alb 2.1. Acetone negative. General: non toxic, no distress, appears at stated age Derm: warm, dry Head: atraumatic, normocephalic, symmetric Eyes: EOMI, no lid lag, anicteric sclera Mouth: no lip lesion, mucus membranes moist Cardiovascular: S1S2 reg, no murmur Lungs: Decreased BS bilaterally, no rhonchi, no rales , no accessory muscle use Abd: Non distended. Suprapubic tenderness Ext: no gross muscle atrophy, no edema, no contractures Neuro: no focal neuro deficits Psych: Alert, oriented, appropriate affect Based on my assessment of this patient, this patient meets a high complexity level of care. Sepsis likely due to UTI: UCx negative. Repeat UCx ordered today. Follow BCx. Continue D5 with sodium bicarb at 100 cc/hr. Maintain MAP > 65. Telemetry monitoring. Started on Vancomycin dosed per pharmacy and Meropenem 500 mg IV BID. ID consulted. Acute metabolic encephalopathy likely due to above: Fall precautions. Obtain B12, Folate, TSH. Metabolic acidosis: Anion gap closed. Likely due to lactic acidosis and YRIS on CKD. Hold Jardiance. Sodium bicarb infusion per Nephrology. DM with hyperglycemia: 19 units Novolog over the sliding scale since admission. POC glucose 278-433 since admission. Add Levemir 21 units QHS and Novolog 7 units TID. Accuchecks ACHS. Hypoglycemic precautions. YRIS on CKD stage IIIB: Likely prerenal from severe sepsis. IV hydration as above. Hold Losartan. Nephrology on board. L hydronephrosis: Per Urology this is chronic and they do not recommend stent placement at this time. Macrocytic anemia: Dilutional. B12 and Folate ordered. No signs of active bleeding. Gout: Febuxostat 40 mg PO QD. Hypertension: Atenolol 25 mg PO QHS. Dyslipidemia: Lipitor 80 mg PO QHS. CODE STATUS: FULL CODE. DVT Prophylaxis: Heparin SQ GI Prophylaxis: Protonix PO Designated medical POA if patient is not able to make medical decisions for themselves: I have reviewed the following tax consultant notes: Urology, Nephrology I have reviewed the results of the following tests: CBC, CMP. I have ordered the following tests: B12, TSH, Folate, BMP, Mag, CBC for AM. I have discussed the care of this patient with the following independent historian: I have independently interpreted the following test below: I have discussed the management of this patient with the following physician: Objective - Vital Signs Vital signs: Vital Signs Temp 98.0 F 05/26/24 06:28 Pulse 82 05/26/24 06:28 Resp 20 05/26/24 06:28 BP 112/74 05/26/24 06:28 Pulse Ox 99 05/26/24 06:28 FiO2 Intake & Output 05/25/24 05/26/24 05/26/24 18:59 06:59 18:59 Output Total 1240 800 Balance -1240 -800 Output: Urine 1240 800 Uretheral ([place]) 420 - Labs CBC & Chem 7: 05/26/24 07:53 05/26/24 09:30 Labs: Abnormal Lab Results - Last 24 Hours (Table) 05/25/24 05/25/24 05/25/24 Range/Units 17:24 20:31 23:34 WBC (3.8-10.6) k/uL RBC (3.80-5.40) m/uL Hgb (11.4-16.0) gm/dL Hct (34.0-46.0) % MCV (80.0-100.0) fL MCHC (31.0-37.0) g/dL Neutrophils # (1.3-7.7) k/uL ABG HCO3 (21-25) mmol/L ABG O2 Saturation (94-97) % VBG pH (7.31-7.41) VBG HCO3 (24-28) mmol/L Hemoglobin (11.4-16.0) gm/dL Sodium (137-145) mmol/L Chloride (98-107) mmol/L Carbon Dioxide (22-30) mmol/L BUN (7-17) mg/dL Creatinine (0.52-1.04) mg/dL Glucose (74-99) mg/dL POC Glucose (mg/dL) 433 H 397 H 298 H (70-110) mg/dL Hemoglobin A1c (<=6.0) % Alkaline Phosphatase (38-126) U/L Total Protein (6.3-8.2) g/dL Albumin (3.5-5.0) g/dL 05/26/24 05/26/24 05/26/24 Range/Units 00:02 00:02 00:02 WBC 17.4 H (3.8-10.6) k/uL RBC 3.18 L (3.80-5.40) m/uL Hgb 10.3 L (11.4-16.0) gm/dL Hct 32.6 L (34.0-46.0) % MCV 102.3 H (80.0-100.0) fL MCHC (31.0-37.0) g/dL Neutrophils # 14.9 H (1.3-7.7) k/uL ABG HCO3 (21-25) mmol/L ABG O2 Saturation (94-97) % VBG pH 7.29 L (7.31-7.41) VBG HCO3 20 L (24-28) mmol/L Hemoglobin (11.4-16.0) gm/dL Sodium 134 L (137-145) mmol/L Chloride 109 H (98-107) mmol/L Carbon Dioxide 17 L (22-30) mmol/L BUN 41 H (7-17) mg/dL Creatinine 2.31 H (0.52-1.04) mg/dL Glucose 268 H (74-99) mg/dL POC Glucose (mg/dL) (70-110) mg/dL Hemoglobin A1c (<=6.0) % Alkaline Phosphatase 196 H (38-126) U/L Total Protein 5.3 L (6.3-8.2) g/dL Albumin 2.5 L (3.5-5.0) g/dL 05/26/24 05/26/24 05/26/24 Range/Units 00:19 07:44 07:53 WBC (3.8-10.6) k/uL RBC (3.80-5.40) m/uL Hgb (11.4-16.0) gm/dL Hct (34.0-46.0) % MCV (80.0-100.0) fL MCHC (31.0-37.0) g/dL Neutrophils # (1.3-7.7) k/uL ABG HCO3 20 L (21-25) mmol/L ABG O2 Saturation 98.8 H (94-97) % VBG pH (7.31-7.41) VBG HCO3 (24-28) mmol/L Hemoglobin 9.6 L (11.4-16.0) gm/dL Sodium (137-145) mmol/L Chloride (98-107) mmol/L Carbon Dioxide (22-30) mmol/L BUN (7-17) mg/dL Creatinine (0.52-1.04) mg/dL Glucose (74-99) mg/dL POC Glucose (mg/dL) 300 H (70-110) mg/dL Hemoglobin A1c 7.5 H (<=6.0) % Alkaline Phosphatase (38-126) U/L Total Protein (6.3-8.2) g/dL Albumin (3.5-5.0) g/dL 05/26/24 05/26/24 05/26/24 Range/Units 07:53 09:30 11:55 WBC 19.1 H (3.8-10.6) k/uL RBC 2.88 L (3.80-5.40) m/uL Hgb 9.2 L (11.4-16.0) gm/dL Hct 30.1 L (34.0-46.0) % MCV 104.3 H (80.0-100.0) fL MCHC 30.5 L (31.0-37.0) g/dL Neutrophils # (1.3-7.7) k/uL ABG HCO3 (21-25) mmol/L ABG O2 Saturation (94-97) % VBG pH (7.31-7.41) VBG HCO3 (24-28) mmol/L Hemoglobin (11.4-16.0) gm/dL Sodium 135 L (137-145) mmol/L Chloride (98-107) mmol/L Carbon Dioxide 18 L (22-30) mmol/L BUN 43 H (7-17) mg/dL Creatinine 2.16 H (0.52-1.04) mg/dL Glucose 259 H (74-99) mg/dL POC Glucose (mg/dL) 369 H (70-110) mg/dL Hemoglobin A1c (<=6.0) % Alkaline Phosphatase 157 H (38-126) U/L Total Protein 4.8 L (6.3-8.2) g/dL Albumin 2.1 L (3.5-5.0) g/dL Microbiology - Last 24 Hours (Table) 05/25/24 06:52 Urine Culture - Final Urine,Catheterized
[2024-05-26 15:37] LABS: Appearance,Urine Cloudy (Clear); RBC,Urine >182 /hpf (0-5); WBC,Urine >182 /hpf (0-5)
[2024-05-26 15:38] LABS: Color,Urine Other
[2024-05-26 16:22] LABS: Glucose,Whole Blood 403 mg/dL (70-110)
[2024-05-26] MEDS: INSULIN ASPART (NovoLOG) 100 UNIT/ML VIAL SQ SCH (16:40)
[2024-05-26 20:05] LABS: Glucose,Whole Blood 144 mg/dL (70-110)
[2024-05-26] MEDS: INSULIN DETEMIR (LEVEMIR) 100 UNIT/ML SYR SQ SCH (20:08)
--- NOTE | 2024-05-26 23:00 | P.CONS ---
History of Present Illness - Reason for Consult Consult date: 05/26/24 UTI, sepsis Requesting physician: Pete Moses - Chief Complaint Weakness x few days - History of Present Illness Patient is a 69-year-old female with a past medical history significant for diabetes mellitus hypertension hyperlipidemia osteoarthritis reflux presenting to the hospital yesterday morning for evaluation of weakness and fall apparently the patient recently has been evaluated by her PCP with the patient did have urinary symptoms of burning frequency and some suprapubic discomfort she was told that she did have a UTI and was started on Ceftin will advise if any worsening symptoms to go to the ER that evening the patient was feeling very weak started feeling dizzy and running a fever at home she was very weak subsequently patient has been brought to the hospital on arrival to the ER the patient did have fever of 100.8 F patient was not tachycardic hypotensive or hypoxic and no need for supplemental oxygen patient did have white count of 15.5 which is up to 19.1 did have elevated pain and a creatinine liver isms are normal urine has been positive initial cultures came back negative blood cultures are pending patient was on Rocephin apparently did have some worsening symptoms last night patient was evaluated by night physician antibiotic has been switched over to meropenem and vancomycin infectious disease was consulted for further management of antibiotic therapy, patient main symptom remains to be feeling weak tired fever with chills denies any headache or URI symptoms no chest pain shortness of breath or cough lower abdominal discomfort no flank pain no did have burning or frequency of urine no hematuria or diarrhea Review of Systems Positive point and negatives has been mentioned in the HPI, complete review of systems was performed and all other systems are negative Past Medical History Past Medical History: Diabetes Mellitus, GERD/Reflux, Hyperlipidemia, Hypertension, Osteoarthritis (OA) Additional Past Medical History / Comment(s): "Kidney number off by 10ths - now preventive medications and scheduled to see [facility] 09/30/23". History of Any Multi-Drug Resistant Organisms: None Reported Past Surgical History: Hysterectomy Additional Past Surgical History / Comment(s): Colonoscopy X2. Past Anesthesia/Blood Transfusion Reactions: No Reported Reaction Past Psychological History: No Psychological Hx Reported Smoking Status: Former smoker Past Alcohol Use History: None Reported Past Drug Use History: None Reported - Past Family History Mother Family Medical History: No Reported History Medications and Allergies Home Medications Medication Instructions Recorded Confirmed Type Atorvastatin [Lipitor] 80 mg PO HS 08/14/23 05/25/24 History Empagliflozin [Jardiance] 25 mg PO DAILY 08/14/23 05/25/24 History Febuxostat 40 mg PO DAILY 08/14/23 05/25/24 History Finerenone [Kerendia] 20 mg PO DAILY 08/14/23 05/25/24 History Linagliptin [Tradjenta] 5 mg PO DAILY 08/14/23 05/25/24 History Losartan Potassium [Cozaar] 100 mg PO DAILY 08/14/23 05/25/24 History Omeprazole 40 mg PO DAILY 08/14/23 05/25/24 History Cefuroxime [Ceftin] 250 mg PO BID 05/25/24 05/25/24 History Semaglutide [Ozempic] 2 mg SQ WE 05/25/24 05/25/24 History atenoloL [Tenormin] 25 mg PO HS 05/25/24 05/25/24 History Allergies Allergy/AdvReac Type Severity Reaction Status Date / Time allopurinol Allergy Rash/Hives Verified 05/25/24 08:05 Penicillins Allergy Rash/Hives Verified 05/25/24 08:05 shellfish derived [Shellfish] Allergy Anaphylaxis Verified 05/25/24 08:05 Physical Exam Vitals: Vital Signs Temp Pulse Resp BP Pulse Ox 05/26/24 06:28 98.0 F 82 20 112/74 99 05/26/24 05:40 98.9 F 75 20 107/64 99 05/26/24 04:22 98.4 F 82 20 114/67 98 05/26/24 04:02 99.3 F 80 20 91/55 100 05/26/24 02:38 84 22 101/58 98 05/26/24 02:14 98.2 F 82 23 94/62 98 05/26/24 01:51 88/61 05/26/24 01:43 99.1 F 84 23 99/57 99 05/26/24 01:14 100 F H 90 18 99 05/25/24 23:25 101.0 F H 85 24 113/77 100 05/25/24 22:01 95 18 111/70 99 05/25/24 21:33 100.9 F H 101 H 20 117/78 98 05/25/24 20:46 115 H 22 140/76 99 05/25/24 19:25 100.9 F H 130 H 22 151/73 98 05/25/24 18:39 125 H 18 157/80 96 05/25/24 18:03 100.5 F H 133 H 18 181/87 97 05/25/24 17:15 131 H 18 151/137 97 05/25/24 15:05 108 H 18 158/79 97 05/25/24 14:00 100 18 151/72 96 05/25/24 13:40 116 H 18 144 H 05/25/24 12:00 113 H 18 96 Intake and Output 05/25/24 05/26/24 05/26/24 22:59 06:59 14:59 Output Total 400 800 Balance -400 -800 Output: Urine 400 800 GENERAL DESCRIPTION: Elderly female lying in bed, no distress. No tachypnea or accessory muscle of respiration use. HEENT: Shows Pallor , no scleral icterus. Oral mucous membrane is dry. No pharyngeal erythema or thrush NECK: Trachea central, no thyromegaly. LUNGS: Unlabored breathing. Clear to auscultation anteriorly. No wheeze or crackle. HEART: S1, S2, regular rate and rhythm. No loud murmur ABDOMEN: Soft, no tenderness , guarding or rigidity, no organomegaly EXTREMITIES: No edema of feet. SKIN: No rash, no masses palpable. NEUROLOGICAL: The patient is awake, alert, oriented x3, mood and affect normal. Results CBC & Chem 7: 05/26/24 07:53 05/26/24 09:30 Labs: Abnormal Lab Results - Last 24 Hours (Table) 05/25/24 05/25/24 05/25/24 Range/Units 17:24 20:31 23:34 WBC (3.8-10.6) k/uL RBC (3.80-5.40) m/uL Hgb (11.4-16.0) gm/dL Hct (34.0-46.0) % MCV (80.0-100.0) fL MCHC (31.0-37.0) g/dL Neutrophils # (1.3-7.7) k/uL ABG HCO3 (21-25) mmol/L ABG O2 Saturation (94-97) % VBG pH (7.31-7.41) VBG HCO3 (24-28) mmol/L Hemoglobin (11.4-16.0) gm/dL Sodium (137-145) mmol/L Chloride (98-107) mmol/L Carbon Dioxide (22-30) mmol/L BUN (7-17) mg/dL Creatinine (0.52-1.04) mg/dL Glucose (74-99) mg/dL POC Glucose (mg/dL) 433 H 397 H 298 H (70-110) mg/dL Alkaline Phosphatase (38-126) U/L Total Protein (6.3-8.2) g/dL Albumin (3.5-5.0) g/dL 05/26/24 05/26/24 05/26/24 Range/Units 00:02 00:02 00:02 WBC 17.4 H (3.8-10.6) k/uL RBC 3.18 L (3.80-5.40) m/uL Hgb 10.3 L (11.4-16.0) gm/dL Hct 32.6 L (34.0-46.0) % MCV 102.3 H (80.0-100.0) fL MCHC (31.0-37.0) g/dL Neutrophils # 14.9 H (1.3-7.7) k/uL ABG HCO3 (21-25) mmol/L ABG O2 Saturation (94-97) % VBG pH 7.29 L (7.31-7.41) VBG HCO3 20 L (24-28) mmol/L Hemoglobin (11.4-16.0) gm/dL Sodium 134 L (137-145) mmol/L Chloride 109 H (98-107) mmol/L Carbon Dioxide 17 L (22-30) mmol/L BUN 41 H (7-17) mg/dL Creatinine 2.31 H (0.52-1.04) mg/dL Glucose 268 H (74-99) mg/dL POC Glucose (mg/dL) (70-110) mg/dL Alkaline Phosphatase 196 H (38-126) U/L Total Protein 5.3 L (6.3-8.2) g/dL Albumin 2.5 L (3.5-5.0) g/dL 05/26/24 05/26/24 05/26/24 Range/Units 00:19 07:44 07:53 WBC 19.1 H (3.8-10.6) k/uL RBC 2.88 L (3.80-5.40) m/uL Hgb 9.2 L (11.4-16.0) gm/dL Hct 30.1 L (34.0-46.0) % MCV 104.3 H (80.0-100.0) fL MCHC 30.5 L (31.0-37.0) g/dL Neutrophils # (1.3-7.7) k/uL ABG HCO3 20 L (21-25) mmol/L ABG O2 Saturation 98.8 H (94-97) % VBG pH (7.31-7.41) VBG HCO3 (24-28) mmol/L Hemoglobin 9.6 L (11.4-16.0) gm/dL Sodium (137-145) mmol/L Chloride (98-107) mmol/L Carbon Dioxide (22-30) mmol/L BUN (7-17) mg/dL Creatinine (0.52-1.04) mg/dL Glucose (74-99) mg/dL POC Glucose (mg/dL) 300 H (70-110) mg/dL Alkaline Phosphatase (38-126) U/L Total Protein (6.3-8.2) g/dL Albumin (3.5-5.0) g/dL 05/26/24 Range/Units 09:30 WBC (3.8-10.6) k/uL RBC (3.80-5.40) m/uL Hgb (11.4-16.0) gm/dL Hct (34.0-46.0) % MCV (80.0-100.0) fL MCHC (31.0-37.0) g/dL Neutrophils # (1.3-7.7) k/uL ABG HCO3 (21-25) mmol/L ABG O2 Saturation (94-97) % VBG pH (7.31-7.41) VBG HCO3 (24-28) mmol/L Hemoglobin (11.4-16.0) gm/dL Sodium 135 L (137-145) mmol/L Chloride (98-107) mmol/L Carbon Dioxide 18 L (22-30) mmol/L BUN 43 H (7-17) mg/dL Creatinine 2.16 H (0.52-1.04) mg/dL Glucose 259 H (74-99) mg/dL POC Glucose (mg/dL) (70-110) mg/dL Alkaline Phosphatase 157 H (38-126) U/L Total Protein 4.8 L (6.3-8.2) g/dL Albumin 2.1 L (3.5-5.0) g/dL Microbiology - Last 24 Hours (Table) 05/25/24 06:52 Urine Culture - Final Urine,Catheterized Assessment and Plan (1) Penicillin allergy Current Visit: Yes Status: Acute Code(s): Z88.0 - ALLERGY STATUS TO PENICILLIN SNOMED Code(s): 26670862 (2) Sepsis Current Visit: Yes Status: Acute Code(s): A41.9 - SEPSIS, UNSPECIFIED ORGANISM SNOMED Code(s): 22641947 (3) UTI (urinary tract infection) Current Visit: Yes Status: Acute Code(s): N39.0 - URINARY TRACT INFECTION, SITE NOT SPECIFIED SNOMED Code(s): 40651842 Plan: 1patient presented to hospital with sepsis in this patient who did have a fever elevated white count source likely UTI likely from the gram-negative pathogen clinic suspicious low for gram-positive bacteria patient did have elevated creatinine however CT abdominal pelvis markedly dilated left renal collecting system and concern for possible obstruction at the ureteropelvic junction for the patient has been evaluated by urology however not recommending any surgical intervention, initial urine culture has been negative 2-we will repeat a UA and a culture 3-with antibiotic adjusted meropenem to continue however keeping in mind her kidney function discontinue the vancomycin We will follow on clinical condition and cultures to further adjust medication if needed Thank you for this consultation we will follow the patient along with you Dictation was produced using [email or web address] dictation software. please excuse any gr ammatical, word or spelling errors. Time with Patient: Greater than 30
[2024-05-27] MEDS ORDERED: MEROPENEM 500 MG VIAL ONE (01:00)
[2024-05-27] MEDS ORDERED: ACETAMINOPHEN TAB 325 MG TAB ONE (01:00)
[2024-05-27] MEDS ORDERED: SODIUM CHLORIDE 0.9% 50 ML BAG IV ONE (01:00)
[2024-05-27] MEDS ORDERED: VANCOMYCIN 1,750 MG in SODIUM CHLORIDE 0.9% 500 ML 500 ML IVPB ONE (06:00)
[2024-05-27 07:39] LABS: Glucose,Whole Blood 98 mg/dL (70-110)
[2024-05-27 08:09] LABS: HCT 30.2 % (34.0-46.0); HGB 9.4 gm/dL (11.4-16.0); Hypochromasia Marked; MCH 32.2 pg (25.0-35.0); MCHC 31.3 g/dL (31.0-37.0); Macrocytosis Slight; Mean Platelet Volume 7.9; Platelet Count 371 k/uL (150-450); RBC 2.93 m/uL (3.80-5.40); WBC 24.6 k/uL (3.8-10.6)
[2024-05-27 08:21] LABS: African American GFR (CKD) 28 (>60 ml/min/1.73 sqM); Anion Gap 8 mmol/L; Blood Urea Nitrogen 47 mg/dL (7-17); Calcium 8.6 mg/dL (8.4-10.2); Carbon Dioxide 27 mmol/L (22-30); Chloride 101 mmol/L (98-107); Glucose 96 mg/dL (74-99); Non-African American GFR(CKD) 24 (>60 ml/min/1.73 sqM); Potassium 3.7 mmol/L (3.5-5.1); Sodium 136 mmol/L (137-145)
--- NOTE | 2024-05-27 11:02 | P.PN ---
Subjective Patient is seen in follow-up for acute kidney injury on chronic kidney disease. Renal function improving. On bicarb drip. Acidosis improved. Has Mcclure catheter. Nonoliguric. Oral intake fair. Vital signs are stable. General: No acute distress. HEENT: Head exam is unremarkable. On nasal cannula. LUNGS: No audible rhonchi or wheezes. HEART: Rate and Rhythm are regular. ABDOMEN: Nontender. EXTREMITITES: No edema. Objective - Vital Signs Vital signs: Vital Signs Temp 100.4 F H 05/27/24 08:00 Pulse 88 05/27/24 08:00 Resp 18 05/27/24 08:00 BP 133/61 05/27/24 08:00 Pulse Ox 91 L 05/27/24 08:00 FiO2 Intake & Output 05/26/24 05/27/24 05/27/24 18:59 06:59 18:59 Output Total 850 600 Balance -850 -600 Weight 84.368 kg 90.6 kg Output: Urine 850 600 Other: Voiding Method Indwelling Catheter Indwelling Catheter - Labs CBC & Chem 7: 05/27/24 07:52 05/27/24 07:52 Labs: Abnormal Lab Results - Last 24 Hours (Table) 05/26/24 05/26/24 05/26/24 Range/Units 07:53 11:55 15:10 WBC (3.8-10.6) k/uL RBC (3.80-5.40) m/uL Hgb (11.4-16.0) gm/dL Hct (34.0-46.0) % MCV (80.0-100.0) fL Sodium (137-145) mmol/L BUN (7-17) mg/dL Creatinine (0.52-1.04) mg/dL POC Glucose (mg/dL) 369 H (70-110) mg/dL Hemoglobin A1c 7.5 H (<=6.0) % Urine Appearance Cloudy H (Clear) Urine RBC >182 H (0-5) /hpf Urine WBC >182 H (0-5) /hpf Urine WBC Clumps Many H (None) /hpf 05/26/24 05/26/24 05/27/24 Range/Units 16:19 20:04 07:52 WBC (3.8-10.6) k/uL RBC (3.80-5.40) m/uL Hgb (11.4-16.0) gm/dL Hct (34.0-46.0) % MCV (80.0-100.0) fL Sodium 136 L (137-145) mmol/L BUN 47 H (7-17) mg/dL Creatinine 2.05 H (0.52-1.04) mg/dL POC Glucose (mg/dL) 403 H 144 H (70-110) mg/dL Hemoglobin A1c (<=6.0) % Urine Appearance (Clear) Urine RBC (0-5) /hpf Urine WBC (0-5) /hpf Urine WBC Clumps (None) /hpf 05/27/24 Range/Units 07:52 WBC 24.6 H (3.8-10.6) k/uL RBC 2.93 L (3.80-5.40) m/uL Hgb 9.4 L (11.4-16.0) gm/dL Hct 30.2 L (34.0-46.0) % MCV 103.0 H (80.0-100.0) fL Sodium (137-145) mmol/L BUN (7-17) mg/dL Creatinine (0.52-1.04) mg/dL POC Glucose (mg/dL) (70-110) mg/dL Hemoglobin A1c (<=6.0) % Urine Appearance (Clear) Urine RBC (0-5) /hpf Urine WBC (0-5) /hpf Urine WBC Clumps (None) /hpf Microbiology - Last 24 Hours (Table) 05/25/24 12:12 Blood Culture - Preliminary Blood 05/25/24 06:52 Urine Culture - Final Urine,Catheterized Assessment and Plan Plan: Assessment: 1. Acute kidney injury secondary to ATN secondary to severe sepsis. Creatinine 2.74 on admission - 2.05 today. Also component of obstructive uropathy with severe left-sided hydronephrosis. 2. Chronic kidney disease stage IIIb with baseline creatinine 1.5-1.7 secondary to nephrosclerosis. 3. Metabolic acidosis secondary to acute kidney injury and lactic acidosis. Improved with bicarb drip. 4. Diabetes mellitus. 5. Left-sided hydronephrosis. Chronic in nature. Urology following. No surgical interventions planned at this time. 6. UTI on antibiotics. Plan: Stop bicarb drip. Start normal saline at 75 cc an hour. Strict I's and O's. Continue to hold Jardiance and Kerendia at this time. Avoid nephrotoxins. Continue to monitor renal function and urine output. Follow-up cultures.
[2024-05-27 11:47] LABS: Glucose,Whole Blood 152 mg/dL (70-110)
[2024-05-27] MEDS: SODIUM CHLORIDE 0.9% 1,000 ML IV SCH (12:31)
--- NOTE | 2024-05-27 12:35 | P.PN ---
Subjective Progress Note Date: 05/27/24 69-year-old female with PMH of HTN, HLD, [id number] diabetes mellitus, and stage IIIb CKD presented to the emergency department via EMS with a chief complaint of generalized weakness, fatigue and fall at home. Patient stated she has been undergoing outpatient treatment for UTI by her PCP and has been evaluated by urology and nephrology for poor renal function. Patient reported low-grade fevers along with urinary urgency and frequency as well as some mild suprapubic pain and discomfort. She denies experiencing any injuries with her fall and denies hitting her head or losing consciousness. Vital signs upon arrival show BP 129/80, HR 140, RR 18, T 100.8 F, and SpO2 of 98% on RA. EKG showed sinus tachycardia at 134 bpm. Chest x-ray negative for acute cardiopulmonary process. CBC showed WBC count of 15.5 and MCV of 103.4. BMP showed Cl 110, bicarb of 9, anion gap of 19, BUN of 45, Cr 2.74, and GFR of 17 with baseline creatinine of 1.7. Blood glucose 288. Lactic acid 2.6. Liver profile showing elevated alk phos of 236. UA showed large LE. CT AP without contrast showed a markedly dilated left renal collection system appears to be obstructed at the left ureteropelvic junction. Patient required 3L NS bolus and was started on Rocephin and admitted for further workup and management with consultation to nephrology and urology. Patient got more lethargic overnight. Repeat CBC showed worsening leukocytosis of 17.4 and T 101F. ABG showed pH 7.35, pCO2 36. She was given an additional 1L NS bolus and antibiotics switched to Meropenem and Vancomycin. 05/26 Patient was seen and examined. She is slow to respond but responding questions appropriately. She reports suprapubic pain and dysuria. Urology recommends continued IV antibiotics, hydronephrosis is chronic, hold stent insertion at this time. Nephrology recommends starting bicarb drip. CBC and CMP significant for WBC 19.1, RBC 2.88, Hg 9.2, Hct 30.1, MCV 104.3, Na 135, bicarb 18, BUN 43, Cr 2.16, glu 259, alk phos 157, alb 2.1. Acetone negative. 05/27 Patient was seen and examined. She reports fatigue. She reports some SOB and dry cough. She is somewhat confused and slow to respond. CBC and BMP significant for WBC 24.6 RBC 2.93, Hg 9.4, Hct 30.2, MCV 103, Na 136, BUN 47, Cr 2.05. TSH 2.63. ID recommends DC Vancomycin and continue Meropenem. Nephro has switched her D5 sodium bicarb infusion to NS at 75 cc/hr. BCx prelim negative at 24H. BP 133/61, T 100.4F, HR 88, RR 18, 91% on RA. General: non toxic, no distress, appears at stated age Derm: warm, dry Head: atraumatic, normocephalic, symmetric Eyes: EOMI, no lid lag, anicteric sclera Mouth: no lip lesion, mucus membranes moist Cardiovascular: S1S2 reg, no murmur Lungs: Decreased BS bilaterally, no rhonchi, no rales , no accessory muscle use Abd: Non distended. Suprapubic tenderness Ext: no gross muscle atrophy, no edema, no contractures Neuro: no focal neuro deficits Psych: Slow to respond, AO x 3 Based on my assessment of this patient, this patient meets a high complexity level of care. Sepsis likely due to UTI: Leukocytosis worsening. UCx negative. Follow up repeat UCx. Follow BCx. Currently on NS at 75 cc/hr. Maintain MAP > 65. Telemetry monitoring. Vancomycin discontinued. Continue Meropenem 500 mg IV BID. ID on board. Acute metabolic encephalopathy likely due to above: Fall precautions. Obtain B12, Folate. TSH as above. DM with hyperglycemia: A1c 7.5. Hyperglycemic likely due to sepsis, now improved. POC glucose 98-403 since admission. Stop Levemir and scheduled Novolog and continue ISS. Accuchecks ACHS. Hypoglycemic precautions. YRIS on CKD stage IIIB: Likely prerenal from severe sepsis. IV hydration as above. Hold Losartan. Nephrology on board. L hydronephrosis: Per Urology this is chronic and they do not recommend stent placement at this time. Macrocytic anemia: Dilutional. B12 and Folate ordered. No signs of active bleeding. Gout: Febuxostat 40 mg PO QD. Hypertension: Atenolol 25 mg PO QHS. Dyslipidemia: Lipitor 80 mg PO QHS. Resolved: Metabolic acidosis CODE STATUS: FULL CODE. DVT Prophylaxis: Heparin SQ GI Prophylaxis: Protonix PO Designated medical POA if patient is not able to make medical decisions for themselves: I have reviewed the following job service consultant notes: Nephrology I have reviewed the results of the following tests: CBC, BMP, Mag, TSH. I have ordered the following tests: B12, Folate pending. CBC and BMP for the AM. CXR I have discussed the care of this patient with the following independent historian: I have independently interpreted the following test below: I have discussed the management of this patient with the following physician: Objective - Vital Signs Vital signs: Vital Signs Temp 100.4 F H 05/27/24 08:00 Pulse 88 05/27/24 08:00 Resp 18 05/27/24 08:00 BP 133/61 05/27/24 08:00 Pulse Ox 91 L 05/27/24 08:00 FiO2 Intake & Output 05/26/24 05/27/24 05/27/24 18:59 06:59 18:59 Output Total 850 600 Balance -850 -600 Weight 84.368 kg 90.6 kg Output: Urine 850 600 Other: Voiding Method Indwelling Catheter Indwelling Catheter Indwelling Catheter - Labs CBC & Chem 7: 05/27/24 07:52 05/27/24 07:52 Labs: Abnormal Lab Results - Last 24 Hours (Table) 05/26/24 05/26/24 05/26/24 Range/Units 15:10 16:19 20:04 WBC (3.8-10.6) k/uL RBC (3.80-5.40) m/uL Hgb (11.4-16.0) gm/dL Hct (34.0-46.0) % MCV (80.0-100.0) fL Sodium (137-145) mmol/L BUN (7-17) mg/dL Creatinine (0.52-1.04) mg/dL POC Glucose (mg/dL) 403 H 144 H (70-110) mg/dL Urine Appearance Cloudy H (Clear) Urine RBC >182 H (0-5) /hpf Urine WBC >182 H (0-5) /hpf Urine WBC Clumps Many H (None) /hpf 05/27/24 05/27/24 05/27/24 Range/Units 07:52 07:52 11:46 WBC 24.6 H (3.8-10.6) k/uL RBC 2.93 L (3.80-5.40) m/uL Hgb 9.4 L (11.4-16.0) gm/dL Hct 30.2 L (34.0-46.0) % MCV 103.0 H (80.0-100.0) fL Sodium 136 L (137-145) mmol/L BUN 47 H (7-17) mg/dL Creatinine 2.05 H (0.52-1.04) mg/dL POC Glucose (mg/dL) 152 H (70-110) mg/dL Urine Appearance (Clear) Urine RBC (0-5) /hpf Urine WBC (0-5) /hpf Urine WBC Clumps (None) /hpf Microbiology - Last 24 Hours (Table) 05/25/24 12:12 Blood Culture - Preliminary Blood
--- NOTE | 2024-05-27 15:27 | P.PN ---
Subjective Progress Note Date: 05/27/24 Principal diagnosis: Reason for follow-up is a complicated UTI Patient is a 69-year-old female with a past medical history significant for diabetes mellitus hypertension hyperlipidemia osteoarthritis reflux presenting to the hospital with weakness and fall recently diagnosed and treated for UTI and also complaining of flank pain patient did have a positive UA did have a CT concerning for left-sided hydronephrosis and possible ureteropelvic junction stone. On today's evaluation that is 05/27/2024, Patient did have a fever 100.4 F this morning patient is currently on room air she is still complaining of pain to the left flank pain etiology slightly decreased did have some nausea but no vomiting no chest pain shortness of breath or cough. Patient white count is up to 24.6, creatinine is 2.0 5 repeat UA is positive cultures are pending Objective - Vital Signs Vital signs: Vital Signs Temp 100.4 F H 05/27/24 08:00 Pulse 88 05/27/24 08:00 Resp 18 05/27/24 08:00 BP 133/61 05/27/24 08:00 Pulse Ox 91 L 05/27/24 08:00 FiO2 Intake & Output 05/26/24 05/27/24 05/27/24 18:59 06:59 18:59 Output Total 850 600 Balance -850 -600 Weight 84.368 kg 90.6 kg Output: Urine 850 600 Other: Voiding Method Indwelling Catheter Indwelling Catheter Indwelling Catheter - Exam GENERAL DESCRIPTION: An elderly female lying in bed in no distress RESPIRATORY SYSTEM: Unlabored breathing , decreased breath sounds at bases HEART: S1 S2 regular rate and rhythm , ABDOMEN: Soft , no tenderness EXTREMITIES: No edema feet - Labs CBC & Chem 7: 05/27/24 07:52 05/27/24 07:52 Labs: Abnormal Lab Results - Last 24 Hours (Table) 05/26/24 05/26/24 05/26/24 Range/Units 11:55 15:10 16:19 WBC (3.8-10.6) k/uL RBC (3.80-5.40) m/uL Hgb (11.4-16.0) gm/dL Hct (34.0-46.0) % MCV (80.0-100.0) fL Sodium (137-145) mmol/L BUN (7-17) mg/dL Creatinine (0.52-1.04) mg/dL POC Glucose (mg/dL) 369 H 403 H (70-110) mg/dL Urine Appearance Cloudy H (Clear) Urine RBC >182 H (0-5) /hpf Urine WBC >182 H (0-5) /hpf Urine WBC Clumps Many H (None) /hpf 05/26/24 05/27/24 05/27/24 Range/Units 20:04 07:52 07:52 WBC 24.6 H (3.8-10.6) k/uL RBC 2.93 L (3.80-5.40) m/uL Hgb 9.4 L (11.4-16.0) gm/dL Hct 30.2 L (34.0-46.0) % MCV 103.0 H (80.0-100.0) fL Sodium 136 L (137-145) mmol/L BUN 47 H (7-17) mg/dL Creatinine 2.05 H (0.52-1.04) mg/dL POC Glucose (mg/dL) 144 H (70-110) mg/dL Urine Appearance (Clear) Urine RBC (0-5) /hpf Urine WBC (0-5) /hpf Urine WBC Clumps (None) /hpf Microbiology - Last 24 Hours (Table) 05/25/24 12:12 Blood Culture - Preliminary Blood 05/25/24 06:52 Urine Culture - Final Urine,Catheterized Assessment and Plan (1) Penicillin allergy Current Visit: Yes Status: Acute Code(s): Z88.0 - ALLERGY STATUS TO PENICILLIN SNOMED Code(s): 91373269 (2) Sepsis Current Visit: Yes Status: Acute Code(s): A41.9 - SEPSIS, UNSPECIFIED ORGANISM SNOMED Code(s): 21512309 (3) UTI (urinary tract infection) Current Visit: Yes Status: Acute Code(s): N39.0 - URINARY TRACT INFECTION, SITE NOT SPECIFIED SNOMED Code(s): 97637184 Plan: 1patient presented to hospital with sepsis in this patient who did have a fever elevated white count source likely UTI likely from the gram-negative pathogen clinic suspicious low for gram-positive bacteria patient did have elevated creatinine however CT abdominal pelvis markedly dilated left renal collecting system and concern for possible obstruction at the ureteropelvic junction for the patient has been evaluated by urology however not recommending any surgical intervention, initial urine culture has been negative 2-repeat UA is positive and also noticed to have worsening of the white count creatinine remains to be elevated patient benefit from cystoscopy and possible stent placement as clinically suspicious is high for possible obstructed left kidney keeping in mind the patient's symptoms worsening white count and elevated creatinine continue with the meropenem will discuss with the urology Dictation was produced using [employer] dictation software. please excuse any grammatical, word or spelling errors. Time with Patient: Less than 30
[2024-05-27 16:32] LABS: Glucose,Whole Blood 140 mg/dL (70-110)
--- NOTE | 2024-05-27 16:39 | XR ---
EXAMINATION TYPE: XR chest 1V portable DATE OF EXAM: 05/27/2024 COMPARISON: 05/25/2024 HISTORY: Shortness of breath TECHNIQUE: Single frontal view of the chest is obtained. FINDINGS: There is no focal air space opacity, pleural effusion, or pneumothorax seen. The cardiac silhouette size is within normal limits. The osseous structures are intact. IMPRESSION: No acute process. [facility], Workstation: [id number] 05/27/2024 4:37 PM
--- NOTE | 2024-05-27 16:46 | P.PN ---
Subjective Progress Note Date: 05/27/24 White count is trending up to 24.6. Patient is having minimal flank pain. Objective - Vital Signs Vital signs: Vital Signs Temp 98.0 F 05/27/24 12:00 Pulse 76 05/27/24 12:00 Resp 18 05/27/24 12:00 BP 130/63 05/27/24 12:00 Pulse Ox 91 L 05/27/24 12:00 FiO2 Intake & Output 05/26/24 05/27/24 05/27/24 18:59 06:59 18:59 Output Total 850 600 350 Balance -850 -600 -350 Weight 84.368 kg 90.6 kg Output: Urine 850 600 350 Other: Voiding Method Indwelling Catheter Indwelling Catheter Indwelling Catheter - Constitutional General appearance: Present: no acute distress - Gastrointestinal General gastrointestinal: Present: soft, tenderness (Along the left flank). Absent: distended - Psychiatric Psychiatric: Present: A&O x's 3 - Labs CBC & Chem 7: 05/27/24 07:52 05/27/24 07:52 Labs: Abnormal Lab Results - Last 24 Hours (Table) 05/26/24 05/27/24 05/27/24 Range/Units 20:04 07:52 07:52 WBC 24.6 H (3.8-10.6) k/uL RBC 2.93 L (3.80-5.40) m/uL Hgb 9.4 L (11.4-16.0) gm/dL Hct 30.2 L (34.0-46.0) % MCV 103.0 H (80.0-100.0) fL Sodium 136 L (137-145) mmol/L BUN 47 H (7-17) mg/dL Creatinine 2.05 H (0.52-1.04) mg/dL POC Glucose (mg/dL) 144 H (70-110) mg/dL 05/27/24 05/27/24 Range/Units 11:46 16:30 WBC (3.8-10.6) k/uL RBC (3.80-5.40) m/uL Hgb (11.4-16.0) gm/dL Hct (34.0-46.0) % MCV (80.0-100.0) fL Sodium (137-145) mmol/L BUN (7-17) mg/dL Creatinine (0.52-1.04) mg/dL POC Glucose (mg/dL) 152 H 140 H (70-110) mg/dL Microbiology - Last 24 Hours (Table) 05/25/24 12:12 Blood Culture - Preliminary Blood Assessment and Plan Assessment: 69-year-old female with history of left UPJ obstruction, presents with sepsis secondary to UTI. I reviewed her CT scan which showed hydronephrosis, white count continues to trend up despite IV antibiotics. Discussed with her given she continues to have leukocytosis at this point I recommend proceeding with a stent insertion. Risk benefit and rationale was discussed with her in detail -N.p.o. past midnight OR tomorrow for cystoscopy and a left stent
[2024-05-27 19:57] LABS: Glucose,Whole Blood 183 mg/dL (70-110)
[2024-05-28 06:17] LABS: Glucose,Whole Blood 148 mg/dL (70-110)
[2024-05-28] MEDS: LACTATED RINGERS 1,000 ML IV ONE (07:00)
[2024-05-28] MEDS ORDERED: MIDAZOLAM 2 MG/2 ML VIAL ONE (07:00)
[2024-05-28] MEDS ORDERED: fentaNYL (PF) 50 MCG/ML 2 ML AMP ONE (07:00)
[2024-05-28] MEDS ORDERED: PROPOFOL 10 MG/ML 20 ML VIAL IV ONE (07:00)
--- NOTE | 2024-05-28 07:12 | P.PN ---
Subjective Progress Note Date: 05/28/24 No acute overnight events, afebrile this morning denies any flank pain Objective - Vital Signs Vital signs: Vital Signs Temp 97.5 F L 05/27/24 20:00 Pulse 84 05/28/24 04:00 Resp 18 05/28/24 04:00 BP 134/60 05/28/24 04:00 Pulse Ox 93 L 05/28/24 04:00 FiO2 Intake & Output 05/27/24 05/28/24 05/28/24 18:59 06:59 18:59 Output Total 400 800 Balance -400 -800 Weight 94 kg Output: Urine 400 800 Other: Voiding Method Indwelling Catheter Indwelling Catheter - Constitutional General appearance: Present: no acute distress - Gastrointestinal General gastrointestinal: Present: soft. Absent: distended, tenderness - Psychiatric Psychiatric: Present: A&O x's 3 - Labs CBC & Chem 7: 05/27/24 07:52 05/27/24 07:52 Labs: Abnormal Lab Results - Last 24 Hours (Table) 05/27/24 05/27/24 05/27/24 Range/Units 07:52 07:52 11:46 WBC 24.6 H (3.8-10.6) k/uL RBC 2.93 L (3.80-5.40) m/uL Hgb 9.4 L (11.4-16.0) gm/dL Hct 30.2 L (34.0-46.0) % MCV 103.0 H (80.0-100.0) fL Sodium 136 L (137-145) mmol/L BUN 47 H (7-17) mg/dL Creatinine 2.05 H (0.52-1.04) mg/dL POC Glucose (mg/dL) 152 H (70-110) mg/dL 05/27/24 05/27/24 05/28/24 Range/Units 16:30 19:55 06:14 WBC (3.8-10.6) k/uL RBC (3.80-5.40) m/uL Hgb (11.4-16.0) gm/dL Hct (34.0-46.0) % MCV (80.0-100.0) fL Sodium (137-145) mmol/L BUN (7-17) mg/dL Creatinine (0.52-1.04) mg/dL POC Glucose (mg/dL) 140 H 183 H 148 H (70-110) mg/dL Microbiology - Last 24 Hours (Table) 05/26/24 15:10 Urine Culture - Final Urine,Clean Catch 05/25/24 12:12 Blood Culture - Preliminary Blood Assessment and Plan Assessment: 69-year-old female with history of left UPJ obstruction, presents with sepsis secondary to UTI. I reviewed her CT scan which showed hydronephrosis, white count continues to trend up despite IV antibiotics. Discussed with her given she continues to have leukocytosis at this point I recommend proceeding with a stent insertion. Risk benefit and rationale was discussed with her in detail OR for cystoscopy and a left stent
[2024-05-28] MEDS ORDERED: LIDOCAINE 1% (10MG/ML) FOR IV START INTRADERMA PRN (07:24)
--- NOTE | 2024-05-28 07:59 | FL ---
Fluoroscopic guidance operating room. HISTORY: Left hydronephrosis. COMPARISON: CT abdomen and pelvis dated 05/25/2024. TECHNIQUE: Single fluoroscopic spot film and 8.5 seconds of fluoroscopy were obtained during placemen t of a left ureteral stent. FINDINGS: Placement of a double-J left ureteral stent. The proximal end of the stent appears to overlie the reg ion of the left kidney. The distal aspect of the stent is not included in the imaging. IMPRESSION: Fluoroscopy for left ureteral stent placement. [facility], Workstation: [id number] 05/28/2024 7:56 AM
[2024-05-28 08:04] LABS: Glucose,Whole Blood 150 mg/dL (70-110)
--- NOTE | 2024-05-28 08:38 | P.OP ---
Date of Procedure: 05/28/24 Preoperative Diagnosis: Left hydronephrosis Postoperative Diagnosis: Same Procedure(s) Performed: Cystoscopy and left stent insertion Implants: 4.8 Fr x 26 cm stent to the left ureter Anesthesia: MAC Surgeon: Ras Carballo Estimated Blood Loss (ml): 1 Pathology: none sent Condition: stable Disposition: PACU Indications for Procedure: This is a 69-year-old female with a history of left-sided UPJ obstruction, recently underwent a retrograde pyelogram presented back to the hospital with pyelonephritis, patient white count continues to trend up despite IV antibiotics. Discussed with her given this finding I do recommend proceeding with a stent insertion, risk-benefit and rationale was discussed with her and her in details Description of Procedure: Patient brought to the operating room, sedation was induced. She was prepped and draped in sterile fashion placed in dorsolithotomy position. Cystoscopy fitted through the 21 Hungarian sheath was inserted per urethra, cystoscopy was performed showed no abnormality within the bladder. Attention was then carried to the left ureteral orifice which was intubated with a sensor wire. next the wire was advanced under fluoroscopy into the kidney. Next I advanced a 6 Hungarian stent over the wire, but resistance was met at the UPJ, at this point I removed the stent with the wire in place and passed a 4.8 Hungarian stent over the wire which advanced without difficulty into the kidney. This time the wire was removed with the stent in place. After stent placement purulent urine drainage was seen draining from the stent, the proximal curl was visualized on fluoroscopy and the distal curl visualized using cystoscope. The patient tolerated procedure was taken to recovery in stable condition
[2024-05-28] MEDS: ONDANSETRON 4 MG/2 ML VIAL IVP ONE (09:45)
[2024-05-28] MEDS: DEXAMETHASONE SOD PHOSPHATE 4 MG/ML 1 ML VIAL IV ONE (09:45)
[2024-05-28] MEDS: LACTATED RINGERS 1,000 ML IV SCH (09:45)
[2024-05-28 10:23] LABS: HCT 33.1 % (34.0-46.0); HGB 10.4 gm/dL (11.4-16.0); Hypochromasia Marked; MCHC 31.3 g/dL (31.0-37.0); MCV 102.3 fL (80.0-100.0); Macrocytosis Slight; Platelet Count 460 k/uL (150-450); RBC 3.24 m/uL (3.80-5.40); RDW 14.1 % (11.5-15.5); WBC 16.8 k/uL (3.8-10.6)
[2024-05-28 10:41] LABS: African American GFR (CKD) 34 (>60 ml/min/1.73 sqM); Anion Gap 9 mmol/L; Blood Urea Nitrogen 50 mg/dL (7-17); Calcium 8.6 mg/dL (8.4-10.2); Carbon Dioxide 24 mmol/L (22-30); Chloride 99 mmol/L (98-107); Glucose 200 mg/dL (74-99); Non-African American GFR(CKD) 29 (>60 ml/min/1.73 sqM); Potassium 4.5 mmol/L (3.5-5.1); Sodium 132 mmol/L (137-145)
--- NOTE | 2024-05-28 10:55 | P.PN ---
Subjective Patient is seen in follow-up for acute kidney injury on chronic kidney disease. Renal function improving. On IV fluids. Has Mcclure catheter. Nonoliguric. Oral intake fair. Vital signs are stable. General: No acute distress. HEENT: Head exam is unremarkable. On room air. LUNGS: No audible rhonchi or wheezes. HEART: Rate and Rhythm are regular. ABDOMEN: Nontender. EXTREMITITES: No edema. Objective - Vital Signs Vital signs: Vital Signs Temp 98.7 F 05/28/24 07:36 Pulse 75 05/28/24 08:06 Resp 16 05/28/24 08:06 BP 113/72 05/28/24 08:06 Pulse Ox 97 05/28/24 08:06 FiO2 Intake & Output 05/27/24 05/28/24 05/28/24 18:59 06:59 18:59 Intake Total 400 Output Total 400 800 1 Balance -400 -800 399 Weight 94 kg Intake: IV 400 Output: Urine 400 800 Estimated Blood Loss 1 Other: Voiding Method Indwelling Catheter Indwelling Catheter - Labs CBC & Chem 7: 05/28/24 09:54 05/28/24 09:54 Labs: Abnormal Lab Results - Last 24 Hours (Table) 05/27/24 05/27/24 05/27/24 Range/Units 11:46 16:30 19:55 WBC (3.8-10.6) k/uL RBC (3.80-5.40) m/uL Hgb (11.4-16.0) gm/dL Hct (34.0-46.0) % MCV (80.0-100.0) fL Plt Count (150-450) k/uL Sodium (137-145) mmol/L BUN (7-17) mg/dL Creatinine (0.52-1.04) mg/dL Glucose (74-99) mg/dL POC Glucose (mg/dL) 152 H 140 H 183 H (70-110) mg/dL 05/28/24 05/28/24 05/28/24 Range/Units 06:14 08:02 09:54 WBC (3.8-10.6) k/uL RBC (3.80-5.40) m/uL Hgb (11.4-16.0) gm/dL Hct (34.0-46.0) % MCV (80.0-100.0) fL Plt Count (150-450) k/uL Sodium 132 L (137-145) mmol/L BUN 50 H (7-17) mg/dL Creatinine 1.76 H (0.52-1.04) mg/dL Glucose 200 H (74-99) mg/dL POC Glucose (mg/dL) 148 H 150 H (70-110) mg/dL 05/28/24 Range/Units 09:54 WBC 16.8 H (3.8-10.6) k/uL RBC 3.24 L (3.80-5.40) m/uL Hgb 10.4 L (11.4-16.0) gm/dL Hct 33.1 L (34.0-46.0) % MCV 102.3 H (80.0-100.0) fL Plt Count 460 H (150-450) k/uL Sodium (137-145) mmol/L BUN (7-17) mg/dL Creatinine (0.52-1.04) mg/dL Glucose (74-99) mg/dL POC Glucose (mg/dL) (70-110) mg/dL Microbiology - Last 24 Hours (Table) 05/26/24 15:10 Urine Culture - Final Urine,Clean Catch 05/25/24 12:12 Blood Culture - Preliminary Blood Assessment and Plan Plan: Assessment: 1. Acute kidney injury secondary to ATN secondary to severe sepsis. Creatinine 2.74 on admission -1.76 today. Also component of obstructive uropathy with severe left-sided hydronephrosis. 2. Chronic kidney disease stage IIIb with baseline creatinine 1.5-1.7 secondary to nephrosclerosis. 3. Metabolic acidosis secondary to acute kidney injury and lactic acidosis. Status post bicarb drip. Improved. 4. Diabetes mellitus. 5. Left-sided hydronephrosis. Chronic in nature. Urology following. No surgical interventions planned at this time. 6. UTI on antibiotics. Plan: Maintain normal saline. Strict I's and O's. Continue to hold Jardiance and Kerendia at this time. Avoid nephrotoxins. Continue to monitor renal function and urine output. Follow-up cultures.
--- NOTE | 2024-05-28 11:17 | P.PN ---
Subjective Progress Note Date: 05/28/24 69-year-old female with PMH of HTN, HLD, [id number] diabetes mellitus, and stage IIIb CKD presented to the emergency department via EMS with a chief complaint of generalized weakness, fatigue and fall at home. Patient stated she has been undergoing outpatient treatment for UTI by her PCP and has been evaluated by urology and nephrology for poor renal function. Patient reported low-grade fevers along with urinary urgency and frequency as well as some mild suprapubic pain and discomfort. She denies experiencing any injuries with her fall and denies hitting her head or losing consciousness. Vital signs upon arrival show BP 129/80, HR 140, RR 18, T 100.8 F, and SpO2 of 98% on RA. EKG showed sinus tachycardia at 134 bpm. Chest x-ray negative for acute cardiopulmonary process. CBC showed WBC count of 15.5 and MCV of 103.4. BMP showed Cl 110, bicarb of 9, anion gap of 19, BUN of 45, Cr 2.74, and GFR of 17 with baseline creatinine of 1.7. Blood glucose 288. Lactic acid 2.6. Liver profile showing elevated alk phos of 236. UA showed large LE. CT AP without contrast showed a markedly dilated left renal collection system appears to be obstructed at the left ureteropelvic junction. Patient required 3L NS bolus and was started on Rocephin and admitted for further workup and management with consultation to nephrology and urology. Patient got more lethargic overnight. Repeat CBC showed worsening leukocytosis of 17.4 and T 101F. ABG showed pH 7.35, pCO2 36. She was given an additional 1L NS bolus and antibiotics switched to Meropenem and Vancomycin. 05/26 Patient was seen and examined. She is slow to respond but responding questions appropriately. She reports suprapubic pain and dysuria. Urology recommends continued IV antibiotics, hydronephrosis is chronic, hold stent insertion at this time. Nephrology recommends starting bicarb drip. CBC and CMP significant for WBC 19.1, RBC 2.88, Hg 9.2, Hct 30.1, MCV 104.3, Na 135, bicarb 18, BUN 43, Cr 2.16, glu 259, alk phos 157, alb 2.1. Acetone negative. 05/27 Patient was seen and examined. She reports fatigue. She reports some SOB and dry cough. She is somewhat confused and slow to respond. CBC and BMP significant for WBC 24.6 RBC 2.93, Hg 9.4, Hct 30.2, MCV 103, Na 136, BUN 47, Cr 2.05. TSH 2.63. ID recommends DC Vancomycin and continue Meropenem. Nephro has switched her D5 sodium bicarb infusion to NS at 75 cc/hr. BCx prelim negative at 24H. 05/28 Patient was seen and examined. Patient with increasing leukocytosis despite broad spectrum antibiotics, decision made by Urology to proceed with stent placement for hydronephrosis. Post procedure she is feeling better today and less lethargic. CBC, BMP significant for WBC 16.8, RBC 3.24, Hg 10.4, Hct 33.1, MCV 102.3, Plt 460, Na 132, BUN 50, Cr 1.76, glu 200. Mag 2. Maintained on Meropenem 500 mg IV BID. UCx 05/26 negative as well. BCx negative at 48H. B12 56 7. Folate 13.7. CXR 05/27 negative for acute process. BP 113/72, Tmax 100.4F, HR 75, RR 16, 97% on RA. General: non toxic, no distress, appears at stated age Derm: warm, dry Head: atraumatic, normocephalic, symmetric Eyes: EOMI, no lid lag, anicteric sclera Mouth: no lip lesion, mucus membranes moist Cardiovascular: S1S2 reg, no murmur Lungs: Decreased BS bilaterally, no rhonchi, no rales , no accessory muscle use Abd: Non distended. Suprapubic tenderness Ext: no gross muscle atrophy, no edema, no contractures Neuro: no focal neuro deficits Psych: Slow to respond, AO x 3 Based on my assessment of this patient, this patient meets a high complexity level of care. Sepsis likely due to UTI: Leukocytosis worsening. UCx negative. Repeat UCx negative. BCx negative so far. Currently on NS at 75 cc/hr. Maintain MAP > 65. Telemetry monitoring. Vancomycin discontinued. Continue Meropenem 500 mg IV BID. ID on board. Acute metabolic encephalopathy likely due to above: Fall precautions. TSH, B12, Folate all within normal limits. DM with hyperglycemia: A1c 7.5. Hyperglycemic likely due to sepsis, now improved. POC glucose 98-183 over the past 24H. Continue ISS. Accuchecks ACHS. Hypoglycemic precautions. YRIS on CKD stage IIIB: Likely prerenal from severe sepsis. IV hydration as above. Hold Losartan. Nephrology on board. L hydronephrosis: Status post stent placement 05/28. Urology on board. Macrocytic anemia: Dilutional. B12 and Folate within normal limits. No signs of active bleeding. Gout: Febuxostat 40 mg PO QD. Hypertension: Atenolol 25 mg PO QHS. Dyslipidemia: Lipitor 80 mg PO QHS. Resolved: Metabolic acidosis CODE STATUS: FULL CODE. DVT Prophylaxis: Heparin SQ GI Prophylaxis: Protonix PO Designated medical POA if patient is not able to make medical decisions for themselves: I have reviewed the following senior sales consultant notes: Nephrology, Urology I have reviewed the results of the following tests: B12, Folate, BCx, UCx. CBC, BMP, Mag. I have ordered the following tests: CBC, BMP, Mag in AM. I have discussed the care of this patient with the following independent historian: RN. I have independently interpreted the following test below: CXR I have discussed the management of this patient with the following physician: Objective - Vital Signs Vital signs: Vital Signs Temp 98.7 F 05/28/24 07:36 Pulse 75 05/28/24 08:06 Resp 16 05/28/24 08:06 BP 113/72 05/28/24 08:06 Pulse Ox 97 05/28/24 08:06 FiO2 Intake & Output 05/27/24 05/28/24 05/28/24 18:59 06:59 18:59 Intake Total 300 Output Total 400 800 1 Balance -400 -800 299 Weight 94 kg Intake: IV 300 Output: Urine 400 800 Estimated Blood Loss 1 Other: Voiding Method Indwelling Catheter Indwelling Catheter - Labs CBC & Chem 7: 05/28/24 09:54 05/28/24 09:54 Labs: Abnormal Lab Results - Last 24 Hours (Table) 05/27/24 05/27/24 05/27/24 Range/Units 07:52 11:46 16:30 Sodium 136 L (137-145) mmol/L BUN 47 H (7-17) mg/dL Creatinine 2.05 H (0.52-1.04) mg/dL POC Glucose (mg/dL) 152 H 140 H (70-110) mg/dL 05/27/24 05/28/24 05/28/24 Range/Units 19:55 06:14 08:02 Sodium (137-145) mmol/L BUN (7-17) mg/dL Creatinine (0.52-1.04) mg/dL POC Glucose (mg/dL) 183 H 148 H 150 H (70-110) mg/dL Microbiology - Last 24 Hours (Table) 05/26/24 15:10 Urine Culture - Final Urine,Clean Catch 05/25/24 12:12 Blood Culture - Preliminary Blood
[2024-05-28 11:49] LABS: Glucose,Whole Blood 179 mg/dL (70-110)
[2024-05-28 16:23] LABS: Glucose,Whole Blood 273 mg/dL (70-110)
--- NOTE | 2024-05-28 16:53 | P.PN ---
Subjective Progress Note Date: 05/28/24 Principal diagnosis: Reason for follow-up is a complicated UTI Patient is a 69-year-old female with a past medical history significant for diabetes mellitus hypertension hyperlipidemia osteoarthritis reflux presenting to the hospital with weakness and fall recently diagnosed and treated for UTI and also complaining of flank pain patient did have a positive UA did have a CT concerning for left-sided hydronephrosis and possible ureteropelvic junction stone. On today's evaluation that is Patient is status post cystoscopy and left ureteral stent placement with evidence of purulent urine post insertion of the stent as documented by operative report procedure completed on 05/28/2024 On today's evaluation that is 05/28/2024, patient has been afebrile, patient is breathing comfortably and is currently on room air, patient denies having any significant cough no chest pain shortness of breath, patient denies nausea vomiting left-sided flank pain has decreased in intensity no diarrhea. Patient white count is down to 16.8, creatinine 1.76 Objective - Vital Signs Vital signs: Vital Signs Temp 97.9 F 05/28/24 08:00 Pulse 73 05/28/24 12:00 Resp 18 05/28/24 12:00 BP 128/62 05/28/24 12:00 Pulse Ox 95 05/28/24 12:00 FiO2 Intake & Output 05/27/24 05/28/24 05/28/24 18:59 06:59 18:59 Intake Total 940 Output Total 400 800 1 Balance -400 -800 939 Weight 94 kg Intake: IV 400 Oral 540 Output: Urine 400 800 Estimated Blood Loss 1 Other: Voiding Method Indwelling Catheter Indwelling Catheter Indwelling Catheter - Exam GENERAL DESCRIPTION: An elderly female lying in bed in no distress RESPIRATORY SYSTEM: Unlabored breathing , decreased breath sounds at bases HEART: S1 S2 regular rate and rhythm , ABDOMEN: Soft , no tenderness EXTREMITIES: No edema feet - Labs CBC & Chem 7: 05/28/24 09:54 05/28/24 09:54 Labs: Abnormal Lab Results - Last 24 Hours (Table) 05/27/24 05/27/24 05/28/24 Range/Units 16:30 19:55 06:14 WBC (3.8-10.6) k/uL RBC (3.80-5.40) m/uL Hgb (11.4-16.0) gm/dL Hct (34.0-46.0) % MCV (80.0-100.0) fL Plt Count (150-450) k/uL Sodium (137-145) mmol/L BUN (7-17) mg/dL Creatinine (0.52-1.04) mg/dL Glucose (74-99) mg/dL POC Glucose (mg/dL) 140 H 183 H 148 H (70-110) mg/dL 05/28/24 05/28/24 05/28/24 Range/Units 08:02 09:54 09:54 WBC 16.8 H (3.8-10.6) k/uL RBC 3.24 L (3.80-5.40) m/uL Hgb 10.4 L (11.4-16.0) gm/dL Hct 33.1 L (34.0-46.0) % MCV 102.3 H (80.0-100.0) fL Plt Count 460 H (150-450) k/uL Sodium 132 L (137-145) mmol/L BUN 50 H (7-17) mg/dL Creatinine 1.76 H (0.52-1.04) mg/dL Glucose 200 H (74-99) mg/dL POC Glucose (mg/dL) 150 H (70-110) mg/dL 05/28/24 Range/Units 11:47 WBC (3.8-10.6) k/uL RBC (3.80-5.40) m/uL Hgb (11.4-16.0) gm/dL Hct (34.0-46.0) % MCV (80.0-100.0) fL Plt Count (150-450) k/uL Sodium (137-145) mmol/L BUN (7-17) mg/dL Creatinine (0.52-1.04) mg/dL Glucose (74-99) mg/dL POC Glucose (mg/dL) 179 H (70-110) mg/dL Microbiology - Last 24 Hours (Table) 05/26/24 15:10 Urine Culture - Final Urine,Clean Catch 05/25/24 12:12 Blood Culture - Preliminary Blood Assessment and Plan (1) Penicillin allergy Current Visit: Yes Status: Acute Code(s): Z88.0 - ALLERGY STATUS TO PENICIL DOUG SNOMED Code(s): 64280070 (2) Sepsis Current Visit: Yes Status: Acute Code(s): A41.9 - SEPSIS, UNSPECIFIED ORGANISM SNOMED Code(s): 64236505 (3) UTI (urinary tract infection) Current Visit: Yes Status: Acute Code(s): N39.0 - URINARY TRACT INFECTION, SITE NOT SPECIFIED SNOMED Code(s): 36557088 Plan: 1patient presented to hospital with sepsis in this patient who did have a fever elevated white count source likely UTI likely from the gram-negative pathogen clinic suspicious low for gram-positive bacteria patient did have elevated creatinine however CT abdominal pelvis markedly dilated left renal collecting system and concern for possible obstruction at the ureteropelvic junction for t he patient has been evaluated by urology however not recommending any surgical intervention, initial urine culture has been negative 2-patient is status post cystoscopy and left ureteral stent placement with evidence of purulent urine we will repeat her UA as the infected kidney is not draining continue with the meropenem adjusting antibiotic on the basis of repeat UA and culture Dictation was produced using [employer] dictation software. please excuse any grammatical, word or spelling errors. Time with Patient: Less than 30
[2024-05-28 17:33] LABS: Bacteria,Urine Many /hpf; RBC,Urine >182 /hpf (0-5); WBC,Urine >182 /hpf (0-5)
[2024-05-28 17:44] LABS: Appearance,Urine Turbid (Clear); Bilirubin,Urine Negative (Negative); Blood,Urine Small (Negative); Glucose,Urine (UA) 2+ (Negative); Ketones,Urine Negative (Negative); Leukocyte Esterase,Urine Large (Negative); Nitrite,Urine Negative (Negative); Protein,Urine 2+ (Negative); Urobilinogen,Urine <2.0 mg/dL (<2.0)
[2024-05-28 17:46] LABS: Color,Urine Other
[2024-05-28 20:10] LABS: Glucose,Whole Blood 418 mg/dL (70-110)
[2024-05-29 06:13] LABS: Glucose,Whole Blood 195 mg/dL (70-110)
[2024-05-29] MEDS ORDERED: HYDROmorphone 0.5 MG/0.5 ML SYRINGE IVP PRN (07:00)
[2024-05-29] MEDS ORDERED: droPERidol 5 MG/2 ML VIAL IVP PRN (07:00)
[2024-05-29 08:36] LABS: HCT 29.4 % (34.0-46.0); HGB 9.3 gm/dL (11.4-16.0); MCH 32.3 pg (25.0-35.0); MCHC 31.7 g/dL (31.0-37.0); Macrocytosis Slight; Mean Platelet Volume 8.5; Platelet Count 366 k/uL (150-450); RBC 2.89 m/uL (3.80-5.40); RDW 14.2 % (11.5-15.5)
[2024-05-29 08:47] LABS: African American GFR (CKD) 37 (>60 ml/min/1.73 sqM); Anion Gap 6 mmol/L; Blood Urea Nitrogen 44 mg/dL (7-17); Calcium 8.2 mg/dL (8.4-10.2); Carbon Dioxide 25 mmol/L (22-30); Chloride 102 mmol/L (98-107); Glucose 186 mg/dL (74-99); Non-African American GFR(CKD) 32 (>60 ml/min/1.73 sqM); Potassium 4.3 mmol/L (3.5-5.1); Sodium 133 mmol/L (137-145)
--- NOTE | 2024-05-29 10:15 | P.PN ---
Subjective Progress Note Date: 05/29/24 Postop day #1 status post left-sided stent insertion. White count down to 11, creatinine 1.6. Denies any flank pain gross hematuria or dysuria, still complains of weakness Objective - Vital Signs Vital signs: Vital Signs Temp 98 F 05/28/24 20:00 Pulse 74 05/29/24 04:00 Resp 18 05/29/24 04:00 BP 145/69 05/29/24 04:00 Pulse Ox 95 05/29/24 04:00 FiO2 Intake & Output 05/28/24 05/29/24 05/29/24 18:59 06:59 18:59 Intake Total 1720 Output Total 1026 1700 Balance 694 -1700 Weight 90.6 kg Intake: IV 400 Oral 1320 Output: Urine 1025 1700 Estimated Blood Loss 1 Other: Voiding Method Indwelling Catheter Indwelling Catheter # Bowel Movements 1 - Constitutional General appearance: Present: no acute distress - Gastrointestinal General gastrointestinal: Present: soft. Absent: distended, tenderness - Psychiatric Psychiatric: Present: A&O x's 3 - Labs CBC & Chem 7: 05/29/24 07:44 05/29/24 07:44 Labs: Abnormal Lab Results - Last 24 Hours (Table) 05/28/24 05/28/24 05/28/24 Range/Units 09:54 09:54 11:47 WBC 16.8 H (3.8-10.6) k/uL RBC 3.24 L (3.80-5.40) m/uL Hgb 10.4 L (11.4-16.0) gm/dL Hct 33.1 L (34.0-46.0) % MCV 102.3 H (80.0-100.0) fL Plt Count 460 H (150-450) k/uL Sodium 132 L (137-145) mmol/L BUN 50 H (7-17) mg/dL Creatinine 1.76 H (0.52-1.04) mg/dL Glucose 200 H (74-99) mg/dL POC Glucose (mg/dL) 179 H (70-110) mg/dL Calcium (8.4-10.2) mg/dL Urine Appearance (Clear) Urine Protein (Negative) Urine Glucose (UA) (Negative) Urine Blood (Negative) Ur Leukocyte Esterase (Negative) Urine RBC (0-5) /hpf Urine WBC (0-5) /hpf Urine WBC Clumps (None) /hpf Urine Bacteria (None) /hpf 05/28/24 05/28/24 05/28/24 Range/Units 16:20 17:07 20:09 WBC (3.8-10.6) k/uL RBC (3.80-5.40) m/uL Hgb (11.4-16.0) gm/dL Hct (34.0-46.0) % MCV (80.0-100.0) fL Plt Count (150-450) k/uL Sodium (137-145) mmol/L BUN (7-17) mg/dL Creatinine (0.52-1.04) mg/dL Glucose (74-99) mg/dL POC Glucose (mg/dL) 273 H 418 H (70-110) mg/dL Calcium (8.4-10.2) mg/dL Urine Appearance Turbid H (Clear) Urine Protein 2+ H (Negative) Urine Glucose (UA) 2+ H (Negative) Urine Blood Small H (Negative) Ur Leukocyte Esterase Large H (Negative) Urine RBC >182 H (0-5) /hpf Urine WBC >182 H (0-5) /hpf Urine WBC Clumps Many H (None) /hpf Urine Bacteria Many H (None) /hpf 05/29/24 05/29/24 05/29/24 Range/Units 06:09 07:44 07:44 WBC 11.0 H (3.8-10.6) k/uL RBC 2.89 L (3.80-5.40) m/uL Hgb 9.3 L (11.4-16.0) gm/dL Hct 29.4 L (34.0-46.0) % MCV 102.0 H (80.0-100.0) fL Plt Count (150-450) k/uL Sodium 133 L (137-145) mmol/L BUN 44 H (7-17) mg/dL Creatinine 1.63 H (0.52-1.04) mg/dL Glucose 186 H (74-99) mg/dL POC Glucose (mg/dL) 195 H (70-110) mg/dL Calcium 8.2 L (8.4-10.2) mg/dL Urine Appearance (Clear) Urine Protein (Negative) Urine Glucose (UA) (Negative) Urine Blood (Negative) Ur Leukocyte Esterase (Negative) Urine RBC (0-5) /hpf Urine WBC (0-5) /hpf Urine WBC Clumps (None) /hpf Urine Bacteria (None) /hpf Microbiology - Last 24 Hours (Table) 05/25/24 12:12 Blood Culture - Preliminary Blood Assessment and Plan Assessment: 69-year-old female with history of left UPJ obstruction, presents with sepsis secondary to UTI. I reviewed her CT scan which showed hydronephrosis, white count continues to trend up despite IV antibiotics. She underwent left-sided stent insertion on May 28, her labs are improving post stents. -From urology standpoint recommend a minimum of 2 weeks of antibiotics and keeping the stent in place for now -Will eventually need a left-sided robotic pyeloplasty to address her UPJ obst ruction
--- NOTE | 2024-05-29 11:15 | P.PN ---
Subjective Patient is seen in follow-up for acute kidney injury on chronic kidney disease. Renal function improving. On IV fluids. Has Mcclure catheter. Underwent cystoscopy with left ureteral stent insertion yesterday. Nonoliguric. Oral intake fair. Vital signs are stable. General: No acute distress. HEENT: Head exam is unremarkable. On room air. LUNGS: No audible rhonchi or wheezes. HEART: Rate and Rhythm are regular. ABDOMEN: Nontender. EXTREMITITES: 1+ edema. Objective - Vital Signs Vital signs: Vital Signs Temp 98.3 F 05/29/24 08:00 Pulse 76 05/29/24 08:00 Resp 18 05/29/24 08:00 BP 137/81 05/29/24 08:00 Pulse Ox 95 05/29/24 08:00 FiO2 Intake & Output 05/28/24 05/29/24 05/29/24 18:59 06:59 18:59 Intake Total 1720 Output Total 1026 1700 Balance 694 -1700 Weight 90.6 kg Intake: IV 400 Oral 1320 Output: Urine 1025 1700 Estimated Blood Loss 1 Other: Voiding Method Indwelling Catheter Indwelling Catheter # Bowel Movements 1 - Labs CBC & Chem 7: 05/29/24 07:44 05/29/24 07:44 Labs: Abnormal Lab Results - Last 24 Hours (Table) 05/28/24 05/28/24 05/28/24 Range/Units 11:47 16:20 17:07 WBC (3.8-10.6) k/uL RBC (3.80-5.40) m/uL Hgb (11.4-16.0) gm/dL Hct (34.0-46.0) % MCV (80.0-100.0) fL Sodium (137-145) mmol/L BUN (7-17) mg/dL Creatinine (0.52-1.04) mg/dL Glucose (74-99) mg/dL POC Glucose (mg/dL) 179 H 273 H (70-110) mg/dL Calcium (8.4-10.2) mg/dL Urine Appearance Turbid H (Clear) Urine Protein 2+ H (Negative) Urine Glucose (UA) 2+ H (Negative) Urine Blood Small H (Negative) Ur Leukocyte Esterase Large H (Negative) Urine RBC >182 H (0-5) /hpf Urine WBC >182 H (0-5) /hpf Urine WBC Clumps Many H (None) /hpf Urine Bacteria Many H (None) /hpf 05/28/24 05/29/24 05/29/24 Range/Units 20:09 06:09 07:44 WBC 11.0 H (3.8-10.6) k/uL RBC 2.89 L (3.80-5.40) m/uL Hgb 9.3 L (11.4-16.0) gm/dL Hct 29.4 L (34.0-46.0) % MCV 102.0 H (80.0-100.0) fL Sodium (137-145) mmol/L BUN (7-17) mg/dL Creatinine (0.52-1.04) mg/dL Glucose (74-99) mg/dL POC Glucose (mg/dL) 418 H 195 H (70-110) mg/dL Calcium (8.4-10.2) mg/dL Urine Appearance (Clear) Urine Protein (Negative) Urine Glucose (UA) (Negative) Urine Blood (Negative) Ur Leukocyte Esterase (Negative) Urine RBC (0-5) /hpf Urine WBC (0-5) /hpf Urine WBC Clumps (None) /hpf Urine Bacteria (None) /hpf 05/29/24 Range/Units 07:44 WBC (3.8-10.6) k/uL RBC (3.80-5.40) m/uL Hgb (11.4-16.0) gm/dL Hct (34.0-46.0) % MCV (80.0-100.0) fL Sodium 133 L (137-145) mmol/L BUN 44 H (7-17) mg/dL Creatinine 1.63 H (0.52-1.04) mg/dL Glucose 186 H (74-99) mg/dL POC Glucose (mg/dL) (70-110) mg/dL Calcium 8.2 L (8.4-10.2) mg/dL Urine Appearance (Clear) Urine Protein (Negative) Urine Glucose (UA) (Negative) Urine Blood (Negative) Ur Leukocyte Esterase (Negative) Urine RBC (0-5) /hpf Urine WBC (0-5) /hpf Urine WBC Clumps (None) /hpf Urine Bacteria (None) /hpf Microbiology - Last 24 Hours (Table) 05/25/24 12:12 Blood Culture - Preliminary Blood Assessment and Plan Plan: Assessment: 1. Acute kidney injury secondary to ATN secondary to severe sepsis. Creatinine 2.74 on admission -1.63 today. Also component of obstructive uropathy with severe left-sided hydronephrosis. 2. Chronic kidney disease stage IIIb with baseline creatinine 1.5-1.7 secondary to nephrosclerosis. 3. Metabolic acidosis secondary to acute kidney injury and lactic acidosis. Status post bicarb drip. Improved. 4. Diabetes mellitus. 5. Left-sided hydronephrosis. Chronic in nature. Urology following. Underwent cystoscopy with left ureteral stent insertion May 28, 2024. 6. UTI on antibiotics. 7. Volume overload. Plan: Hep-Lock IV fluids. Mcclure catheter per urology. Avoid nephrotoxins. Continue to monitor renal function and urine output. Follow-up cultures. Lasix 20 mg IV once today.
--- NOTE | 2024-05-29 11:22 | P.PN ---
Subjective Progress Note Date: 05/29/24 69-year-old female with PMH of HTN, HLD, [id number] diabetes mellitus, and stage IIIb CKD presented to the emergency department via EMS with a chief complaint of generalized weakness, fatigue and fall at home. Patient stated she has been undergoing outpatient treatment for UTI by her PCP and has been evaluated by urology and nephrology for poor renal function. Patient reported low-grade fevers along with urinary urgency and frequency as well as some mild suprapubic pain and discomfort. She denies experiencing any injuries with her fall and denies hitting her head or losing consciousness. Vital signs upon arrival show BP 129/80, HR 140, RR 18, T 100.8 F, and SpO2 of 98% on RA. EKG showed sinus tachycardia at 134 bpm. Chest x-ray negative for acute cardiopulmonary process. CBC showed WBC count of 15.5 and MCV of 103.4. BMP showed Cl 110, bicarb of 9, anion gap of 19, BUN of 45, Cr 2.74, and GFR of 17 with baseline creatinine of 1.7. Blood glucose 288. Lactic acid 2.6. Liver profile showing elevated alk phos of 236. UA showed large LE. CT AP without contrast showed a markedly dilated left renal collection system appears to be obstructed at the left ureteropelvic junction. Patient required 3L NS bolus and was started on Rocephin and admitted for further workup and management with consultation to nephrology and urology. Patient got more lethargic overnight. Repeat CBC showed worsening leukocytosis of 17.4 and T 101F. ABG showed pH 7.35, pCO2 36. She was given an additional 1L NS bolus and antibiotics switched to Meropenem and Vancomycin. 05/26 Patient was seen and examined. She is slow to respond but responding questions appropriately. She reports suprapubic pain and dysuria. Urology recommends continued IV antibiotics, hydronephrosis is chronic, hold stent insertion at this time. Nephrology recommends starting bicarb drip. CBC and CMP significant for WBC 19.1, RBC 2.88, Hg 9.2, Hct 30.1, MCV 104.3, Na 135, bicarb 18, BUN 43, Cr 2.16, glu 259, alk phos 157, alb 2.1. Acetone negative. 05/27 Patient was seen and examined. She reports fatigue. She reports some SOB and dry cough. She is somewhat confused and slow to respond. CBC and BMP significant for WBC 24.6 RBC 2.93, Hg 9.4, Hct 30.2, MCV 103, Na 136, BUN 47, Cr 2.05. TSH 2.63. ID recommends DC Vancomycin and continue Meropenem. Nephro has switched her D5 sodium bicarb infusion to NS at 75 cc/hr. BCx prelim negative at 24H. 05/28 Patient was seen and examined. Patient with increasing leukocytosis despite broad spectrum antibiotics, decision made by Urology to proceed with stent placement for hydronephrosis. Post procedure she is feeling better today and less lethargic. CBC, BMP significant for WBC 16.8, RBC 3.24, Hg 10.4, Hct 33.1, MCV 102.3, Plt 460, Na 132, BUN 50, Cr 1.76, glu 200. Mag 2. Maintained on Meropenem 500 mg IV BID. UCx 05/26 negative as well. BCx negative at 48H. B12 567 . Folate 13.7. CXR 05/27 negative for acute process. 05/29 Patient was seen and examined. Feeling better but a little unsteady on her feet. Repeat UCx was again collected on 05/28. CBC shows WBC 11, RBC 2.89, Hg 9.3, Hct 39.4, MCV 102. BMP shows Na 133, BUN 44, Cr 1.63, glu 186, Ca 8.2. Urology recommends 2 weeks of antibiotics and left-sided robotic pyeloplasty to address her UPJ obstruction in the future. Nephrology recommends DC IVF and Lasix 20 mg IV x 1. BP 145/69, T 98F, HR 74, RR 18, 95% on RA. General: non toxic, no distress, appears at stated age Derm: warm, dry Head: atraumatic, normocephalic, symmetric Eyes: EOMI, no lid lag, anicteric sclera Mouth: no lip lesion, mucus membranes moist Cardiovascular: S1S2 reg, no murmur Lungs: Decreased BS bilaterally, no rhonchi, no rales , no accessory muscle use Abd: Non distended. Suprapubic tenderness Ext: no gross muscle atrophy, no edema, no contractures Neuro: no focal neuro deficits Psych: AO x 3 Based on my assessment of this patient, this patient meets a high complexity level of care. Sepsis likely due to UTI: Leukocytosis improving post ureteral stent on 05/28. UCx negative. Repeat UCx negative. BCx negative so far. Another UCx collected on 05/28. IVF discontinued. Maintain MAP > 65. Telemetry monitoring. Vancomycin discontinued. Continue Meropenem 500 mg IV BID (D3). ID on board. Acute metabolic encephalopathy likely due to above: Improved. Fall precautions. TSH, B12, Folate all within normal limits. DM with hyperglycemia: A1c 7.5. Hyperglycemic likely due to sepsis, now improved. POC glucose 148-418 over the past 24H. Add Novolog 3 units TID with meals. Continue ISS. Accuchecks ACHS. Hypoglycemic precautions. YRIS on CKD stage IIIB: Improving. Likely prerenal from severe sepsis. Hold Losartan. Nephrology on board. L hydronephrosis: Status post stent placement 05/28. Urology recommends 2 weeks of antibiotics and left-sided robotic pyeloplasty to address her UPJ obstruction in the future. Urology on board. Macrocytic anemia: Dilutional. B12 and Folate within normal limits. No signs of active bleeding. Gout: Febuxostat 40 mg PO QD. Hypertension: Atenolol 25 mg PO QHS. Dyslipidemia: Lipitor 80 mg PO QHS. Resolved: Metabolic acidosis CODE STATUS: FULL CODE. DVT Prophylaxis: Heparin SQ GI Prophylaxis: Protonix PO Designated medical POA if patient is not able to make medical decisions for themselves: Dispo: Likely home. PT OT consulted. Repeat UCx pending. I have reviewed the following investment consultant notes: Nephrology, Urology I have reviewed the results of the following tests: CBC, BMP. I have ordered the following tests: CBC and BMP ordered for tomorrow AM. I have discussed the care of this patient with the following independent historian: I have independently interpreted the following test below: I have discussed the management of this patient with the following physician: Objective - Vital Signs Vital signs: Vital Signs Temp 98 F 05/28/24 20:00 Pulse 74 05/29/24 04:00 Resp 18 05/29/24 04:00 BP 145/69 05/29/24 04:00 Pulse Ox 95 05/29/24 04:00 FiO2 Intake & Output 05/28/24 05/29/24 05/29/24 18:59 06:59 18:59 Intake Total 1720 Output Total 1026 1700 Balance 694 -1700 Weight 90.6 kg Intake: IV 400 Oral 1320 Output: Urine 1025 1700 Estimated Blood Loss 1 Other: Voiding Method Indwelling Catheter Indwelling Catheter # Bowel Movements 1 - Labs CBC & Chem 7: 05/29/24 07:44 05/29/24 07:44 Labs: Abnormal Lab Results - Last 24 Hours (Table) 05/28/24 05/28/24 05/28/24 Range/Units 09:54 09:54 11:47 WBC 16.8 H (3.8-10.6) k/uL RBC 3.24 L (3.80-5.40) m/uL Hgb 10.4 L (11.4-16.0) gm/dL Hct 33.1 L (34.0-46.0) % MCV 102.3 H (80.0-100.0) fL Plt Count 460 H (150-450) k/uL Sodium 132 L (137-145) mmol/L BUN 50 H (7-17) mg/dL Creatinine 1.76 H (0.52-1.04) mg/dL Glucose 200 H (74-99) mg/dL POC Glucose (mg/dL) 179 H (70-110) mg/dL Urine Appearance (Clear) Urine Protein (Negative) Urine Glucose (UA) (Negative) Urine Blood (Negative) Ur Leukocyte Esterase (Negative) Urine RBC (0-5) /hpf Urine WBC (0-5) /hpf Urine WBC Clumps (None) /hpf Urine Bacteria (None) /hpf 05/28/24 05/28/24 05/28/24 Range/Units 16:20 17:07 20:09 WBC (3.8-10.6) k/uL RBC (3.80-5.40) m/uL Hgb (11.4-16.0) gm/dL Hct (34.0-46.0) % MCV (80.0-100.0) fL Plt Count (150-450) k/uL Sodium (137-145) mmol/L BUN (7-17) mg/dL Creatinine (0.52-1.04) mg/dL Glucose (74-99) mg/dL POC Glucose (mg/dL) 273 H 418 H (70-110) mg/dL Urine Appearance Turbid H (Clear) Urine Protein 2+ H (Negative) Urine Glucose (UA) 2+ H (Negative) Urine Blood Small H (Negative) Ur Leukocyte Esterase Large H (Negative) Urine RBC >182 H (0-5) /hpf Urine WBC >182 H (0-5) /hpf Urine WBC Clumps Many H (None) /hpf Urine Bacteria Many H (None) /hpf 05/29/24 05/29/24 Range/Units 06:09 07:44 WBC 11.0 H (3.8-10.6) k/uL RBC 2.89 L (3.80-5.40) m/uL Hgb 9.3 L (11.4-16.0) gm/dL Hct 29.4 L (34.0-46.0) % MCV 102.0 H (80.0-100.0) fL Plt Count (150-450) k/uL Sodium (137-145) mmol/L BUN (7-17) mg/dL Creatinine (0.52-1.04) mg/dL Glucose (74-99) mg/dL POC Glucose (mg/dL) 195 H (70-110) mg/dL Urine Appearance (Clear) Urine Protein (Negative) Urine Glucose (UA) (Negative) Urine Blood (Negative) Ur Leukocyte Esterase (Negative) Urine RBC (0-5) /hpf Urine WBC (0-5) /hpf Urine WBC Clumps (None) /hpf Urine Bacteria (None) /hpf Microbiology - Last 24 Hours (Table) 05/25/24 12:12 Blood Culture - Preliminary Blood
[2024-05-29 11:34] LABS: Glucose,Whole Blood 240 mg/dL (70-110)
[2024-05-29] MEDS: FUROSEMIDE 10 MG/ML 2 ML VIAL IV STA (11:53)
[2024-05-29] MEDS: INSULIN ASPART (NovoLOG) 100 UNIT/ML VIAL SQ SCH (11:54)
--- NOTE | 2024-05-29 15:29 | P.PN ---
Subjective Progress Note Date: 05/29/24 Principal diagnosis: Reason for follow-up is a complicated UTI Patient is a 69-year-old female with a past medical history significant for diabetes mellitus hypertension hyperlipidemia osteoarthritis reflux presenting to the hospital with weakness and fall recently diagnosed and treated for UTI and also complaining of flank pain patient did have a positive UA did have a CT concerning for left-sided hydronephrosis and possible ureteropelvic junction stone. On today's evaluation that is Patient is status post cystoscopy and left ureteral stent placement with evidence of purulent urine post insertion of the stent as documented by operative report procedure completed on 05/28/2024 On today's evaluation that is 05/29/2024, Patient is afebrile this morning patient denies having any chest pain shortness of breath or cough, the patient is breathing comfortably on room air, patient denies any abdominal pain no diarrhea no nausea no vomiting, has been complaining of some pain discomfort to the left upper extremity. Patient white count is down to 11,000, creat is 1.6 3 repeat UA is positive with cultures pending Objective - Vital Signs Vital signs: Vital Signs Temp 98.3 F 05/29/24 08:00 Pulse 76 05/29/24 08:00 Resp 18 05/29/24 08:00 BP 137/81 05/29/24 08:00 Pulse Ox 95 05/29/24 08:00 FiO2 Intake & Output 05/28/24 05/29/24 05/29/24 18:59 06:59 18:59 Intake Total 1720 Output Total 1026 1700 950 Balance 694 -1700 -950 Weight 90.6 kg Intake: IV 400 Oral 1320 Output: Urine 1025 1700 950 Estimated Blood Loss 1 Other: Voiding Method Indwelling Catheter Indwelling Catheter Indwelling Catheter # Bowel Movements 1 1 - Exam GENERAL DESCRIPTION: An elderly female lying in bed in no distress RESPIRATORY SYSTEM: Unlabored breathing , decreased breath sounds at bases HEART: S1 S2 regular rate and rhythm , ABDOMEN: Soft , no tenderness EXTREMITIES: No edema feet - Labs CBC & Chem 7: 05/29/24 07:44 05/29/24 07:44 Labs: Abnormal Lab Results - Last 24 Hours (Table) 05/28/24 05/28/24 05/28/24 Range/Units 16:20 17:07 20:09 WBC (3.8-10.6) k/uL RBC (3.80-5.40) m/uL Hgb (11.4-16.0) gm/dL Hct (34.0-46.0) % MCV (80.0-100.0) fL Sodium (137-145) mmol/L BUN (7-17) mg/dL Creatinine (0.52-1.04) mg/dL Glucose (74-99) mg/dL POC Glucose (mg/dL) 273 H 418 H (70-110) mg/dL Calcium (8.4-10.2) mg/dL Urine Appearance Turbid H (Clear) Urine Protein 2+ H (Negative) Urine Glucose (UA) 2+ H (Negative) Urine Blood Small H (Negative) Ur Leukocyte Esterase Large H (Negative) Urine RBC >182 H (0-5) /hpf Urine WBC >182 H (0-5) /hpf Urine WBC Clumps Many H (None) /hpf Urine Bacteria Many H (None) /hpf 05/29/24 05/29/24 05/29/24 Range/Units 06:09 07:44 07:44 WBC 11.0 H (3.8-10.6) k/uL RBC 2.89 L (3.80-5.40) m/uL Hgb 9.3 L (11.4-16.0) gm/dL Hct 29.4 L (34.0-46.0) % MCV 102.0 H (80.0-100.0) fL Sodium 133 L (137-145) mmol/L BUN 44 H (7-17) mg/dL Creatinine 1.63 H (0.52-1.04) mg/dL Glucose 186 H (74-99) mg/dL POC Glucose (mg/dL) 195 H (70-110) mg/dL Calcium 8.2 L (8.4-10.2) mg/dL Urine Appearance (Clear) Urine Protein (Negative) Urine Glucose (UA) (Negative) Urine Blood (Negative) Ur Leukocyte Esterase (Negative) Urine RBC (0-5) /hpf Urine WBC (0-5) /hpf Urine WBC Clumps (None) /hpf Urine Bacteria (None) /hpf 05/29/24 Range/Units 11:33 WBC (3.8-10.6) k/uL RBC (3.80-5.40) m/uL Hgb (11.4-16.0) gm/dL Hct (34.0-46.0) % MCV (80.0-100.0) fL Sodium (137-145) mmol/L BUN (7-17) mg/dL Creatinine (0.52-1.04) mg/dL Glucose (74-99) mg/dL POC Glucose (mg/dL) 240 H (70-110) mg/dL Calcium (8.4-10.2) mg/dL Urine Appearance (Clear) Urine Protein (Negative) Urine Glucose (UA) (Negative) Urine Blood (Negative) Ur Leukocyte Esterase (Negative) Urine RBC (0-5) /hpf Urine WBC (0-5) /hpf Urine WBC Clumps (None) /hpf Urine Bacteria (None) /hpf Microbiology - Last 24 Hours (Table) 05/25/24 12:12 Blood Culture - Preliminary Blood Assessment and Plan (1) Penicillin allergy Current Visit: Yes Status: Acute Code(s): Z88.0 - ALLERGY STATUS TO PENICIL DOUG SNOMED Code(s): 85463562 (2) Sepsis Current Visit: Yes Status: Acute Code(s): A41.9 - SEPSIS, UNSPECIFIED ORGANISM SNOMED Code(s): 75299609 (3) UTI (urinary tract infection) Current Visit: Yes Status: Acute Code(s): N39.0 - URINARY TRACT INFECTION, SITE NOT SPECIFIED SNOMED Code(s): 20200522 Plan: 1patient presented to hospital with sepsis in this patient who did have a fever elevated white count source likely UTI likely from the gram-negative pathogen clinic suspicious low for gram-positive bacteria patient did have elevated creatinine however CT abdominal pelvis markedly dilated left renal collecting system and concern for possible obstruction at the ureteropelvic junction for t he patient has been evaluated by urology however not recommending any surgical intervention, initial urine culture has been negative 2-patient is status post cystoscopy and left ureteral stent placement with evidence of purulent urine repeat UA significantly positive cultures are pending we will continue with the meropenem till the repeat urine culture finalized to determine discharge antibiotics Dictation was produced using [employer] dictation software. please excuse any grammatical, word or spelling errors. Time with Patient: Less than 30
[2024-05-29 16:39] LABS: Glucose,Whole Blood 174 mg/dL (70-110)
[2024-05-29 20:20] LABS: Glucose,Whole Blood 183 mg/dL (70-110)
[2024-05-30] MEDS ORDERED: MEROPENEM 1 GM in SODIUM CHLORIDE 0.9% 100 ML IVPB SCH (03:00)
[2024-05-30] MEDS: MEROPENEM 1 GM in SODIUM CHLORIDE 0.9% 100 ML IVPB SCH (05:54)
[2024-05-30 06:14] LABS: Glucose,Whole Blood 171 mg/dL (70-110)
[2024-05-30 08:20] LABS: HCT 33.3 % (34.0-46.0); HGB 10.2 gm/dL (11.4-16.0); Hypochromasia Slight; MCH 31.4 pg (25.0-35.0); MCHC 30.6 g/dL (31.0-37.0); MCV 102.6 fL (80.0-100.0); Macrocytosis Slight; Mean Platelet Volume 8.2; Platelet Count 436 k/uL (150-450); RBC 3.25 m/uL (3.80-5.40); RDW 13.9 % (11.5-15.5); WBC 10.4 k/uL (3.8-10.6)
[2024-05-30 08:27] LABS: African American GFR (CKD) 44 (>60 ml/min/1.73 sqM); Anion Gap 8 mmol/L; Blood Urea Nitrogen 39 mg/dL (7-17); Calcium 8.8 mg/dL (8.4-10.2); Carbon Dioxide 24 mmol/L (22-30); Chloride 102 mmol/L (98-107); Glucose 161 mg/dL (74-99); Magnesium 1.8 mg/dL (1.6-2.3); Non-African American GFR(CKD) 38 (>60 ml/min/1.73 sqM); Potassium 4.3 mmol/L (3.5-5.1); Sodium 134 mmol/L (137-145)
--- NOTE | 2024-05-30 10:26 | P.PN ---
Subjective Progress Note Date: 05/30/24 69-year-old female with PMH of HTN, HLD, [id number] diabetes mellitus, and stage IIIb CKD presented to the emergency department via EMS with a chief complaint of generalized weakness, fatigue and fall at home. Patient stated she has been undergoing outpatient treatment for UTI by her PCP and has been evaluated by urology and nephrology for poor renal function. Patient reported low-grade fevers along with urinary urgency and frequency as well as some mild suprapubic pain and discomfort. She denies experiencing any injuries with her fall and denies hitting her head or losing consciousness. Vital signs upon arrival show BP 129/80, HR 140, RR 18, T 100.8 F, and SpO2 of 98% on RA. EKG showed sinus tachycardia at 134 bpm. Chest x-ray negative for acute cardiopulmonary process. CBC showed WBC count of 15.5 and MCV of 103.4. BMP showed Cl 110, bicarb of 9, anion gap of 19, BUN of 45, Cr 2.74, and GFR of 17 with baseline creatinine of 1.7. Blood glucose 288. Lactic acid 2.6. Liver profile showing elevated alk phos of 236. UA showed large LE. CT AP without contrast showed a markedly dilated left renal collection system appears to be obstructed at the left ureteropelvic junction. Patient required 3L NS bolus and was started on Rocephin and admitted for further workup and management with consultation to nephrology and urology. Patient got more lethargic overnight. Repeat CBC showed worsening leukocytosis of 17.4 and T 101F. ABG showed pH 7.35, pCO2 36. She was given an additional 1L NS bolus and antibiotics switched to Meropenem and Vancomycin. Patient with increasing leukocytosis despite broad spectrum antibiotics, decision made by Urology to proceed with stent placement for hydronephrosis on 05/28. Post ureteral stent, she progressively improved and her leukocytosis normalized. Her blood culture and multiple urine cultures have come back negative despite appea ring grossly infected. 05/30 Patient was seen and examined. Feeling better but a little unsteady on her feet. Open to going to [facility]. UCx collected on 05/28 has come back negative. CBC shows RBC 3.25, Hg 10.2, Hct 33.3, MCV 102.6. BMP shows Na 134, BUN 39, Cr 1.41, glu 161. Mag 1.8. BP 135/80, T 97.6F, HR 63, RR 18, 96% on RA. General: non toxic, no distress, appears at stated age Derm: warm, dry Head: atraumatic, normocephalic, symmetric Eyes: EOMI, no lid lag, anicteric sclera Mouth: no lip lesion, mucus membranes moist Cardiovascular: S1S2 reg, no murmur Lungs: Decreased BS bilaterally, no rhonchi, no rales , no accessory muscle use Ext: no gross muscle atrophy, trace edema, no contractures Neuro: no focal neuro deficits Psych: AO x 3 Based on my assessment of this patient, this patient meets a high complexity level of care. Sepsis likely due to UTI: Leukocytosis improving post ureteral stent on 05/28. UCx negative 05/25, 05/26 and 05/28. BCx negative at 72H. Telemetry monitoring. Vancomycin discontinued. Continue Meropenem 1 g IV BID (D4). ID on board. Acute metabolic encephalopathy likely due to above: Improved. Fall precautions. TSH, B12, Folate all within normal limits. PT and OT consulted. DM with hyperglycemia: A1c 7.5. Hyperglycemic likely due to sepsis, now improved. POC glucose 171-240 over the past 24H. Novolog 3 units TID with meals. Continue ISS. Accuchecks ACHS. Hypoglycemic precautions. YRIS on CKD stage IIIB: Improving. Likely prerenal from severe sepsis. Also obstructive with hydronephrosis on CT. Hold Losartan. Nephrology on board. L hydronephrosis: Status post stent placement 05/28. Urology recommends 2 weeks of antibiotics and left-sided robotic pyeloplasty to address her UPJ obstruction in the future. Urology on board. Macrocytic anemia: Dilutional. B12 and Folate within normal limits. No signs of active bleeding. Gout: Febuxostat 40 mg PO QD. Hypertension: Atenolol 25 mg PO QHS. Dyslipidemia: Lipitor 80 mg PO QHS. Resolved: Metabolic acidosis CODE STATUS: FULL CODE. DVT Prophylaxis: Heparin SQ GI Prophylaxis: Protonix PO Designated medical POA if patient is not able to make medical decisions for themselves: Dispo: Home versus SNF. PT OT consulted. I have reviewed the following security system sales consultant notes: Nephrology, Urology, ID I have reviewed the results of the following tests: CBC, BMP, Mag. I have ordered the following tests: I have discussed the care of this patient with the following independent historian: Case management. I have independently interpreted the following test below: I have discussed the management of this patient with the following physician: Objective - Vital Signs Vital signs: Vital Signs Temp 97.6 F 05/30/24 03:28 Pulse 63 05/30/24 03:28 Resp 18 05/30/24 03:28 BP 135/80 05/30/24 03:28 Pulse Ox 96 05/30/24 03:28 FiO2 Intake & Output 05/29/24 05/30/24 05/30/24 18:59 06:59 18:59 Output Total 1600 850 Balance -1600 -850 Weight 90 kg Output: Urine 1600 850 Other: Voiding Method Indwelling Catheter Indwelling Catheter # Bowel Movements 1 - Labs CBC & Chem 7: 05/30/24 07:35 05/30/24 07:35 Labs: Abnormal Lab Results - Last 24 Hours (Table) 05/29/24 05/29/24 05/29/24 Range/Units 07:44 07:44 11:33 WBC 11.0 H (3.8-10.6) k/uL RBC 2.89 L (3.80-5.40) m/uL Hgb 9.3 L (11.4-16.0) gm/dL Hct 29.4 L (34.0-46.0) % MCV 102.0 H (80.0-100.0) fL MCHC (31.0-37.0) g/dL Sodium 133 L (137-145) mmol/L BUN 44 H (7-17) mg/dL Creatinine 1.63 H (0.52-1.04) mg/dL Glucose 186 H (74-99) mg/dL POC Glucose (mg/dL) 240 H (70-110) mg/dL Calcium 8.2 L (8.4-10.2) mg/dL 05/29/24 05/29/24 05/30/24 Range/Units 16:37 20:19 06:08 WBC (3.8-10.6) k/uL RBC (3.80-5.40) m/uL Hgb (11.4-16.0) gm/dL Hct (34.0-46.0) % MCV (80.0-100.0) fL MCHC (31.0-37.0) g/dL Sodium (137-145) mmol/L BUN (7-17) mg/dL Creatinine (0.52-1.04) mg/dL Glucose (74-99) mg/dL POC Glucose (mg/dL) 174 H 183 H 171 H (70-110) mg/dL Calcium (8.4-10.2) mg/dL 05/30/24 05/30/24 Range/Units 07:35 07:35 WBC (3.8-10.6) k/uL RBC 3.25 L (3.80-5.40) m/uL Hgb 10.2 L (11.4-16.0) gm/dL Hct 33.3 L (34.0-46.0) % MCV 102.6 H (80.0-100.0) fL MCHC 30.6 L (31.0-37.0) g/dL Sodium 134 L (137-145) mmol/L BUN 39 H (7-17) mg/dL Creatinine 1.41 H (0.52-1.04) mg/dL Glucose 161 H (74-99) mg/dL POC Glucose (mg/dL) (70-110) mg/dL Calcium (8.4-10.2) mg/dL Microbiology - Last 24 Hours (Table) 05/28/24 17:07 Urine Culture - Final Urine,Voided
[2024-05-30 11:19] LABS: Glucose,Whole Blood 208 mg/dL (70-110)
--- NOTE | 2024-05-30 12:50 | P.PN ---
Subjective Postop day #2 status post left-sided stent insertion. White count down to 10, creatinine 1.4. Denies any flank pain gross hematuria or dysuria, still complains of weakness. Currently had a catheter in place that is draining clear urine Objective - Vital Signs Vital signs: Vital Signs Temp 97.8 F 05/30/24 12:05 Pulse 73 05/30/24 12:05 Resp 16 05/30/24 12:05 BP 162/87 05/30/24 12:05 Pulse Ox 97 05/30/24 12:05 FiO2 Intake & Output 05/29/24 05/30/24 05/30/24 18:59 06:59 18:59 Output Total 1600 850 Balance -1600 -850 Weight 90 kg Output: Urine 1600 850 Other: Voiding Method Indwelling Catheter Indwelling Catheter Indwelling Catheter # Bowel Movements 1 - Constitutional General appearance: Present: no acute distress - Gastrointestinal General gastrointestinal: Present: soft. Absent: distended, tenderness - Psychiatric Psychiatric: Present: A&O x's 3 - Labs CBC & Chem 7: 05/30/24 07:35 05/30/24 07:35 Labs: Abnormal Lab Results - Last 24 Hours (Table) 05/29/24 05/29/24 05/30/24 Range/Units 16:37 20:19 06:08 RBC (3.80-5.40) m/uL Hgb (11.4-16.0) gm/dL Hct (34.0-46.0) % MCV (80.0-100.0) fL MCHC (31.0-37.0) g/dL Sodium (137-145) mmol/L BUN (7-17) mg/dL Creatinine (0.52-1.04) mg/dL Glucose (74-99) mg/dL POC Glucose (mg/dL) 174 H 183 H 171 H (70-110) mg/dL 05/30/24 05/30/24 05/30/24 Range/Units 07:35 07:35 11:17 RBC 3.25 L (3.80-5.40) m/uL Hgb 10.2 L (11.4-16.0) gm/dL Hct 33.3 L (34.0-46.0) % MCV 102.6 H (80.0-100.0) fL MCHC 30.6 L (31.0-37.0) g/dL Sodium 134 L (137-145) mmol/L BUN 39 H (7-17) mg/dL Creatinine 1.41 H (0.52-1.04) mg/dL Glucose 161 H (74-99) mg/dL POC Glucose (mg/dL) 208 H (70-110) mg/dL Microbiology - Last 24 Hours (Table) 05/28/24 17:07 Urine Culture - Final Urine,Voided Assessment and Plan Assessment: 69-year-old female with history of left UPJ obstruction, presents with sepsis secondary to UTI. I reviewed her CT scan which showed hydronephrosis, white count continues to trend up despite IV antibiotics. She underwent left-sided s tent insertion on May 28, her labs are improving post stents. -From urology standpoint recommend a minimum of 2 weeks of antibiotics and keeping the stent in place for now -Will eventually need a left-sided robotic pyeloplasty to address her UPJ obstruction -From urology standpoint catheter can be removed when patient is discharged, she is stable for discharge from urology standpoint
--- NOTE | 2024-05-30 12:51 | P.PN ---
Subjective patient is seen for follow-up for acute kidney injury. Renal function has been improving. Off of IV fluids. Serum creatinine down to 1.4 mg/dL today. No significant complaints. Objective - Vital Signs Vital signs: Vital Signs Temp 97.8 F 05/30/24 12:05 Pulse 73 05/30/24 12:05 Resp 16 05/30/24 12:05 BP 162/87 05/30/24 12:05 Pulse Ox 97 05/30/24 12:05 FiO2 Intake & Output 05/29/24 05/30/24 05/30/24 18:59 06:59 18:59 Output Total 1600 850 Balance -1600 -850 Weight 90 kg Output: Urine 1600 850 Other: Voiding Method Indwelling Catheter Indwelling Catheter Indwelling Catheter # Bowel Movements 1 - Exam patient is awake, comfortable, no acute distress. Examination of the heart S1 and S2 Examination of the lungs decreased breath sounds at the bases with basilar crackles Abdomen is soft nontender Examination of lower extremity shows trace edema bilaterally STUDENT ADVISOR exam grossly intact - Labs CBC & Chem 7: 05/30/24 07:35 05/30/24 07:35 Labs: Abnormal Lab Results - Last 24 Hours (Table) 05/29/24 05/29/24 05/30/24 Range/Units 16:37 20:19 06:08 RBC (3.80-5.40) m/uL Hgb (11.4-16.0) gm/dL Hct (34.0-46.0) % MCV (80.0-100.0) fL MCHC (31.0-37.0) g/dL Sodium (137-145) mmol/L BUN (7-17) mg/dL Creatinine (0.52-1.04) mg/dL Glucose (74-99) mg/dL POC Glucose (mg/dL) 174 H 183 H 171 H (70-110) mg/dL 05/30/24 05/30/24 05/30/24 Range/Units 07:35 07:35 11:17 RBC 3.25 L (3.80-5.40) m/uL Hgb 10.2 L (11.4-16.0) gm/dL Hct 33.3 L (34.0-46.0) % MCV 102.6 H (80.0-100.0) fL MCHC 30.6 L (31.0-37.0) g/dL Sodium 134 L (137-145) mmol/L BUN 39 H (7-17) mg/dL Creatinine 1.41 H (0.52-1.04) mg/dL Glucose 161 H (74-99) mg/dL POC Glucose (mg/dL) 208 H (70-110) mg/dL Microbiology - Last 24 Hours (Table) 05/28/24 17:07 Urine Culture - Final Urine,Voided Assessment and Plan Assessment: 1. Acute kidney injury secondary to ATN secondary to severe sepsis. Creatinine 2.74 on admission -1.4 today. Also component of obstructive uropathy with severe left-sided hydronephrosis. 2. Chronic kidney disease stage IIIb with baseline creatinine 1.5-1.7 secondary to nephrosclerosis. 3. Metabolic acidosis secondary to acute kidney injury and lactic acidosis. Status post bicarb drip. Improved. 4. Diabetes mellitus. 5. Left-sided hydronephrosis. Chronic in nature. Urology following. Underwent cystoscopy with left ureteral stent insertion May 28, 2024. 6. UTI on antibiotics. 7. Volume overload. Plan: IV Lasix times one today Continue off of IV fluids Repeat labs in a.m. Continue with Mcclure catheter.
[2024-05-30] MEDS: FUROSEMIDE 10 MG/ML 4 ML VIAL IV STA (13:29)
[2024-05-30 16:51] LABS: Glucose,Whole Blood 167 mg/dL (70-110)
[2024-05-30 19:56] LABS: Glucose,Whole Blood 209 mg/dL (70-110)
--- NOTE | 2024-05-30 23:05 | P.PN ---
Subjective Progress Note Date: 05/30/24 Principal diagnosis: Reason for follow-up is a complicated UTI Patient is a 69-year-old female with a past medical history significant for diabetes mellitus hypertension hyperlipidemia osteoarthritis reflux presenting to the hospital with weakness and fall recently diagnosed and treated for UTI and also complaining of flank pain patient did have a positive UA did have a CT concerning for left-sided hydronephrosis and possible ureteropelvic junction stone. On today's evaluation that is Patient is status post cystoscopy and left ureteral stent placement with evidence of purulent urine post insertion of the stent as documented by operative report procedure completed on 05/28/2024 On today's evaluation that is 05/30/2024,the patient denies any fever or any chills, patient is breathing comfortably on room air, the patient denies chest pain shortness of breath and no significant cough, patient left-sided flank pain has decreased intensity no nausea vomiting no diarrhea mention feeling better. Patient white count is down to 10.4, creatinine is 1.4 1 repeat urine came back negative as well Objective - Vital Signs Vital signs: Vital Signs Temp 98.3 F 05/30/24 08:05 Pulse 82 05/30/24 08:05 Resp 16 05/30/24 08:05 BP 146/79 05/30/24 08:05 Pulse Ox 94 L 05/30/24 08:05 FiO2 Intake & Output 05/29/24 05/30/24 05/30/24 18:59 06:59 18:59 Output Total 1600 850 Balance -1600 -850 Weight 90 kg Output: Urine 1600 850 Other: Voiding Method Indwelling Catheter Indwelling Catheter Indwelling Catheter # Bowel Movements 1 - Exam GENERAL DESCRIPTION: An elderly female lying in bed in no distress RESPIRATORY SYSTEM: Unlabored breathing , decreased breath sounds at bases HEART: S1 S2 regular rate and rhythm , ABDOMEN: Soft , no tenderness EXTREMITIES: No edema feet - Labs CBC & Chem 7: 05/30/24 07:35 05/30/24 07:35 Labs: Abnormal Lab Results - Last 24 Hours (Table) 05/29/24 05/29/24 05/29/24 Range/Units 11:33 16:37 20:19 RBC (3.80-5.40) m/uL Hgb (11.4-16.0) gm/dL Hct (34.0-46.0) % MCV (80.0-100.0) fL MCHC (31.0-37.0) g/dL Sodium (137-145) mmol/L BUN (7-17) mg/dL Creatinine (0.52-1.04) mg/dL Glucose (74-99) mg/dL POC Glucose (mg/dL) 240 H 174 H 183 H (70-110) mg/dL 05/30/24 05/30/24 05/30/24 Range/Units 06:08 07:35 07:35 RBC 3.25 L (3.80-5.40) m/uL Hgb 10.2 L (11.4-16.0) gm/dL Hct 33.3 L (34.0-46.0) % MCV 102.6 H (80.0-100.0) fL MCHC 30.6 L (31.0-37.0) g/dL Sodium 134 L (137-145) mmol/L BUN 39 H (7-17) mg/dL Creatinine 1.41 H (0.52-1.04) mg/dL Glucose 161 H (74-99) mg/dL POC Glucose (mg/dL) 171 H (70-110) mg/dL Microbiology - Last 24 Hours (Table) 05/28/24 17:07 Urine Culture - Final Urine,Voided Assessment and Plan (1) Penicillin allergy Current Visit: Yes Status: Acute Code(s): Z88.0 - ALLERGY STATUS TO PENICILLIN SNOMED Code(s): 41868150 (2) Sepsis Current Visit: Yes Status: Acute Code(s): A41.9 - SEPSIS, UNSPECIFIED ORGANISM SNOMED Code(s): 15579636 (3) UTI (urinary tract infection) Current Visit: Yes Status: Acute Code(s): N39.0 - URINARY TRACT INFECTION, SITE NOT SPECIFIED SNOMED Code(s): 34307370 Plan: 1patient presented to hospital with sepsis in this patient who did have a fever elevated white count source likely UTI likely from the gram-negative pathogen clinic suspicious low for gram-positive bacteria patient did have elevated creatinine however CT abdominal pelvis markedly dilated left renal collecting system and concern for possible obstruction at the ureteropelvic junction for the patient has been evaluated by urology however not recommending any surgical intervention, initial urine culture has been negative 2-patient is status post cystoscopy and left ureteral stent placement with evidence of purulent urine repeat UA significantly positive cultures however culture has been negative we will go ahead and discontinue meropenem we will start the patient on Rocephin 2 g daily repeat his CBC tomorrow the patient continued to improve on Rocephin to finish therapy with oral Ceftin x 10 days discussed with the admitting physician Dictation was produced using [employer] dictation software. please excuse any grammatical, word or spelling errors. Time with Patient: Less than 30
[2024-05-31 05:55] LABS: Glucose,Whole Blood 169 mg/dL (70-110)
[2024-05-31 08:55] LABS: Basophils # (A) 0.1 k/uL (0-0.2); Basophils % (A) 1 %; Eosinophils # (A) 0.2 k/uL (0-0.7); Eosinophils % (A) 3 %; HCT 30.9 % (34.0-46.0); HGB 9.9 gm/dL (11.4-16.0); Hypochromasia Slight; Lymphocytes # (A) 2.2 k/uL (1.0-4.8); Lymphocytes % (A) 26 %; MCHC 31.9 g/dL (31.0-37.0); MCV 100.2 fL (80.0-100.0); Mean Platelet Volume 7.7; Monocytes # (A) 0.5 k/uL (0-1.0); Monocytes % (A) 6 %; Neutrophils # (A) 5.3 k/uL (1.3-7.7); Neutrophils % (A) 62 %; Platelet Count 469 k/uL (150-450); RBC 3.08 m/uL (3.80-5.40); RDW 13.7 % (11.5-15.5); WBC 8.5 k/uL (3.8-10.6)
[2024-05-31 10:04] VITALS: TEMP 98.6
[2024-05-31 10:11] LABS: African American GFR (CKD) 50 (>60 ml/min/1.73 sqM); Anion Gap 2 mmol/L; Blood Urea Nitrogen 33 mg/dL (7-17); C Reactive Protein 6.6 mg/dL (<1.0); Calcium 8.8 mg/dL (8.4-10.2); Carbon Dioxide 27 mmol/L (22-30); Chloride 106 mmol/L (98-107); Glucose 161 mg/dL (74-99); Non-African American GFR(CKD) 43 (>60 ml/min/1.73 sqM); Potassium 4.3 mmol/L (3.5-5.1); Sodium 135 mmol/L (137-145)
[2024-05-31] MEDS ORDERED: ZINC OXIDE PASTE (Z-GUARD) 1 APPLIC TOPICAL PRN (11:32)
[2024-05-31 11:42] LABS: Glucose,Whole Blood 234 mg/dL (70-110)
[2024-05-31 12:30] VITALS: BP 172/72; PULSE 76; RESP 18
--- NOTE | 2024-05-31 12:50 | P.PN ---
Subjective Progress Note Date: 05/31/24 Hospital course 69-year-old female with PMH of HTN, HLD, [id number] diabetes mellitus, and stage IIIb CKD presented to the emergency department via EMS with a chief complaint of generalized weakness, fatigue and fall at home. Patient stated she has been undergoing outpatient treatment for UTI by her PCP and has been evaluated by urology and nephrology for poor renal function. Patient reported low-grade fevers along with urinary urgency and frequency as well as some mild suprapubic pain and discomfort. She denies experiencing any injuries with her fall and denies hitting her head or losing consciousness. Vital signs upon arrival show BP 129/80, HR 140, RR 18, T 100.8 F, and SpO2 of 98% on RA. EKG showed sinus tachycardia at 134 bpm. Chest x-ray negative for acute cardiopulmonary process. CBC showed WBC count of 15.5 and MCV of 103.4. BMP showed Cl 110, bicarb of 9, anion gap of 19, BUN of 45, Cr 2.74, and GFR of 17 with baseline creatinine of 1.7. Blood glucose 288. Lactic acid 2.6. Liver profile showing elevated alk phos of 236. UA showed large LE. CT AP without contrast showed a markedly dilated left renal collection system appears to be o bstructed at the left ureteropelvic junction. Patient required 3L NS bolus and was started on Rocephin and admitted for further workup and management with consultation to nephrology and urology. Patient got more lethargic overnight. Repeat CBC showed worsening leukocytosis of 17.4 and T 101F. ABG showed pH 7.35, pCO2 36. She was given an additional 1L NS bolus and antibiotics switched to Meropenem and Vancomycin. Patient with increasing leukocytosis despite broad spectrum antibiotics, decision made by Urology to proceed with stent placement for hydronephrosis on 05/28. Post ureteral stent, she progressively improved and her leukocytosis normalized. Her blood culture and multiple urine cultures have come back negative despite appearing grossly infected. Infectious disease recommended Ceftin to complete the antibiotic course of 10 days. Patient seen this morning. She denies any acute complaints. 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 Patient will need to follow-up with urology Macrocytic anemia Stable with no active bleeding Gout Continue with home meds Hypertension Continue home meds Dyslipidemia Continue with home meds Metabolic acidosis Resolved DVT prophylaxis: Subcu heparin Patient stable for discharge to group home facility. Awaiting for prior authorization. Objective - Vital Signs Vital signs: Vital Signs Temp 98.6 F 05/31/24 08:00 Pulse 76 05/31/24 12:00 Resp 18 05/31/24 12:00 BP 172/72 05/31/24 12:00 Pulse Ox 95 05/31/24 12:00 FiO2 Intake & Output 05/30/24 05/31/24 05/31/24 18:59 06:59 18:59 Intake Total 1230 118 Output Total 3350 575 Balance 1230 -3350 -457 Weight 94.5 kg Intake: Intake, IV Titration 150 Amount Meropenem 1 gm In Sodium 100 Chloride 0.9% 100 ml @ 33 .333 mls/hr IVPB Q12H [facility] Rx#:[id number] cefTRIAXone 2 gm In 50 Sodium Chloride 0.9% 50 ml @ 100 mls/hr IVPB Q24H [facility] Rx#:[id number] Oral 1080 118 Output: Urine 3350 575 Other: Voiding Method Indwelling Catheter Indwelling Catheter Indwelling Catheter - Labs CBC & Chem 7: 05/31/24 08:29 05/31/24 08:29 Labs: Abnormal Lab Results - Last 24 Hours (Table) 05/30/24 05/30/24 05/31/24 Range/Units 16:43 19:54 05:53 RBC (3.80-5.40) m/uL Hgb (11.4-16.0) gm/dL Hct (34.0-46.0) % MCV (80.0-100.0) fL Plt Count (150-450) k/uL Sodium (137-145) mmol/L BUN (7-17) mg/dL Creatinine (0.52-1.04) mg/dL Glucose (74-99) mg/dL POC Glucose (mg/dL) 167 H 209 H 169 H (70-110) mg/dL C-Reactive Protein (<1.0) mg/dL 05/31/24 05/31/24 05/31/24 Range/Units 08:29 08:29 11:41 RBC 3.08 L (3.80-5.40) m/uL Hgb 9.9 L (11.4-16.0) gm/dL Hct 30.9 L (34.0-46.0) % MCV 100.2 H (80.0-100.0) fL Plt Count 469 H (150-450) k/uL Sodium 135 L (137-145) mmol/L BUN 33 H (7-17) mg/dL Creatinine 1.28 H (0.52-1.04) mg/dL Glucose 161 H (74-99) mg/dL POC Glucose (mg/dL) 234 H (70-110) mg/dL C-Reactive Protein 6.6 H (<1.0) mg/dL Microbiology - Last 24 Hours (Table) 05/25/24 12:12 Blood Culture - Final Blood
--- NOTE | 2024-05-31 13:14 | P.DS ---
Providers Date of admission: 05/25/24 08:01 Attending physician: Donaldo Govea Consults: 05/25/24 08:18 Consult Physician Urgent Consulting Provider: Ras Carballo Consult Reason/Comments: sepsis/uti Do you want consulting provider notified?: Already Contacted 05/25/24 08:19 Consult Physician Routine Consulting Provider: Ivan Jones Consult Reason/Comments: YRIS, UROLOGY FOLLOWING FOR HYDRONEPHROSIS Do you want consulting provider notified?: Yes 05/26/24 09:01 Consult Physician Routine Consulting Provider: Annamarie Byrd Consult Reason/Comments: UTI sepsis Do you want consulting provider notified?: Yes Primary care physician: [facility] [place] [facility] Course: Discharge Diagnosis: Sepsis on admission UTI Acute metabolic encephalopathy: Resolved Acute kidney injury on CKD stage III: Resolved Left-sided hydronephrosis status post ureteral stent placement Macrocytic anemia Gout Hypertension Dyslipidemia Metabolic acidosis: Resolved Hospital Course: 69-year-old female with PMH of HTN, HLD, [id number] diabetes mellitus, and stage IIIb CKD presented to the emergency department via EMS with a chief complaint of generalized weakness, fatigue and fall at home. Patient stated she has been undergoing outpatient treatment for UTI by her PCP and has been evaluated by urology and nephrology for poor renal function. Patient reported low-grade fevers along with urinary urgency and frequency as well as some mild suprapubic pain and discomfort. She denies experiencing any injuries with her fall and denies hitting her head or losing consciousness. Vital signs upon arrival show BP 129/80, HR 140, RR 18, T 100.8 F, and SpO2 of 98% on RA. EKG showed sinus tachycardia at 134 bpm. Chest x-ray negative for acute cardi opulmonary process. CBC showed WBC count of 15.5 and MCV of 103.4. BMP showed Cl 110, bicarb of 9, anion gap of 19, BUN of 45, Cr 2.74, and GFR of 17 with baseline creatinine of 1.7. Blood glucose 288. Lactic acid 2.6. Liver profile showing elevated alk phos of 236. UA showed large LE. CT AP without contrast showed a markedly dilated left renal collection system appears to be obstructed at the left ureteropelvic junction. Patient required 3L NS bolus and was started on Rocephin and admitted for further workup and management with consultation to nephrology and urology. Patient got more lethargic overnight. Repeat CBC showed worsening leukocytosis of 17.4 and T 101F. ABG showed pH 7.35, pCO2 36. She was given an additional 1L NS bolus and antibiotics switched to Meropenem and Vancomycin. Patient with increasing leukocytosis despite broad spectrum antibiotics, decision made by Urology to proceed with stent placement for hydronephrosis on 05/28. Post ureteral stent, she progressively improved and her leukocytosis normalized. Renal function also improved. Her blood culture and multiple urine cultures have come back negative despite appearing grossly infected. Infectious disease recommended Ceftin to complete the antibiotic course of 10 days. Patient cleared for discharge by urology. Patient deemed stable for discharge to senior living facility. Patient seen and examined at bedside.[] Vital signs reviewed and stable. 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 Patient Condition at Discharge: Stable Plan - Discharge Summary New Discharge Prescriptions: No Action Finerenone [Kerendia] 20 mg PO DAILY Febuxostat 40 mg PO DAILY Empagliflozin [Jardiance] 25 mg PO DAILY Cefuroxime [Ceftin] 250 mg PO BID Semaglutide [Ozempic] 2 mg SQ WE Linagliptin [Tradjenta] 5 mg PO DAILY Atorvastatin [Lipitor] 80 mg PO HS Omeprazole 40 mg PO DAILY Losartan Potassium [Cozaar] 100 mg PO DAILY atenoloL [Tenormin] 25 mg PO HS Discharge Medication List Atorvastatin [Lipitor] 80 mg PO HS 08/14/23 [History] Empagliflozin [Jardiance] 25 mg PO DAILY 08/14/23 [History] Febuxostat 40 mg PO DAILY 08/14/23 [History] Finerenone [Kerendia] 20 mg PO DAILY 08/14/23 [History] Linagliptin [Tradjenta] 5 mg PO DAILY 08/14/23 [History] Losartan Potassium [Cozaar] 100 mg PO DAILY 08/14/23 [History] Omeprazole 40 mg PO DAILY 08/14/23 [History] Cefuroxime [Ceftin] 250 mg PO BID 05/25/24 [History] Semaglutide [Ozempic] 2 mg SQ WE 05/25/24 [History] atenoloL [Tenormin] 25 mg PO HS 05/25/24 [History] Follow up Appointment(s)/Referral(s): Lowell Page MD [Primary Care Provider] - 1-2 days Annamarie Byrd MD [STAFF PHYSICIAN] - 1 Week
--- NOTE | 2024-05-31 13:27 | P.PN ---
Subjective patient is seen for follow-up for acute kidney injury. Renal function has been improving. Off of IV fluids. Serum creatinine down to 1.28 mg/dL today. No significant complaints. Objective - Vital Signs Vital signs: Vital Signs Temp 98.6 F 05/31/24 08:00 Pulse 76 05/31/24 12:00 Resp 18 05/31/24 12:00 BP 172/72 05/31/24 12:00 Pulse Ox 95 05/31/24 12:00 FiO2 Intake & Output 05/30/24 05/31/24 05/31/24 18:59 06:59 18:59 Intake Total 1230 118 Output Total 3350 575 Balance 2540 -1310 457 Weight 94.5 kg Intake: Intake, IV Titration 150 Amount Meropenem 1 gm In Sodium 100 Chloride 0.9% 100 ml @ 33 .333 mls/hr IVPB Q12H [facility] Rx#:[id number] cefTRIAXone 2 gm In 50 Sodium Chloride 0.9% 50 ml @ 100 mls/hr IVPB Q24H [facility] Rx#:[id number] Oral 1080 118 Output: Urine 3350 575 Other: Voiding Method Indwelling Catheter Indwelling Catheter Indwelling Catheter - Exam patient is awake, comfortable, no acute distress. 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 - Labs CBC & Chem 7: 05/31/24 08:29 05/31/24 08:29 Labs: Abnormal Lab Results - Last 24 Hours (Table) 05/30/24 05/30/24 05/31/24 Range/Units 16:43 19:54 05:53 RBC (3.80-5.40) m/uL Hgb (11.4-16.0) gm/dL Hct (34.0-46.0) % MCV (80.0-100.0) fL Plt Count (150-450) k/uL Sodium (137-145) mmol/L BUN (7-17) mg/dL Creatinine (0.52-1.04) mg/dL Glucose (74-99) mg/dL POC Glucose (mg/dL) 167 H 209 H 169 H (70-110) mg/dL C-Reactive Protein (<1.0) mg/dL 05/31/24 05/31/24 05/31/24 Range/Units 08:29 08:29 11:41 RBC 3.08 L (3.80-5.40) m/uL Hgb 9.9 L (11.4-16.0) gm/dL Hct 30.9 L (34.0-46.0) % MCV 100.2 H (80.0-100.0) fL Plt Count 469 H (150-450) k/uL Sodium 135 L (137-145) mmol/L BUN 33 H (7-17) mg/dL Creatinine 1.28 H (0.52-1.04) mg/dL Glucose 161 H (74-99) mg/dL POC Glucose (mg/dL) 234 H (70-110) mg/dL C-Reactive Protein 6.6 H (<1.0) mg/dL Microbiology - Last 24 Hours (Table) 05/25/24 12:12 Blood Culture - Final Blood Assessment and Plan Assessment: 1. Acute kidney injury secondary to ATN secondary to severe sepsis. Creatinine 2.74 on admission -1.2 today. Also component of obstructive uropathy with severe left-sided hydronephrosis. 2. Chronic kidney disease stage IIIb with baseline creatinine 1.5-1.7 secondary to nephrosclerosis. 3. Metabolic acidosis secondary to acute kidney injury and lactic acidosis. Status post bicarb drip. Improved. 4. Diabetes mellitus. 5. Left-sided hydronephrosis. Chronic in nature. Urology following. Underwent cystoscopy with left ureteral stent insertion May 28, 2024. 6. UTI on antibiotics. 7. Volume overload, improved. Plan: repeat Lasix today and Patient is stable for discharge from nephrology standpoint.
--- NOTE | 2024-05-31 14:42 | P.PN ---
Subjective Progress Note Date: 05/31/24 Principal diagnosis: Reason for follow-up is a complicated UTI Patient is a 69-year-old female with a past medical history significant for diabetes mellitus hypertension hyperlipidemia osteoarthritis reflux presenting to the hospital with weakness and fall recently diagnosed and treated for UTI and also complaining of flank pain patient did have a positive UA did have a CT concerning for left-sided hydronephrosis and possible ureteropelvic junction stone. On today's evaluation that is Patient is status post cystoscopy and left ureteral stent placement with evidence of purulent urine post insertion of the stent as documented by operative report procedure completed on 05/28/2024 On today's evaluation that is 05/31/2024,the patient remains to be afebrile, patient is on room air not requiring supplemental oxygen and denies any shortness of breath no chest pain or cough.Patient denies having any nausea or vomiting, no abdominal pain and no diarrhea has been reported, patient mention feeling better. Patient white count is 8.5, creatinine is 1.28 Objective - Vital Signs Vital signs: Vital Signs Temp 98.6 F 05/31/24 08:00 Pulse 80 05/31/24 08:00 Resp 16 05/31/24 08:00 BP 125/62 05/31/24 08:00 Pulse Ox 94 L 05/31/24 08:00 FiO2 Intake & Output 05/30/24 05/31/24 05/31/24 18:59 06:59 18:59 Intake Total 1230 118 Output Total 3350 575 Balance 3380 -4970 -178 Weight 94.5 kg Intake: Intake, IV Titration 150 Amount Meropenem 1 gm In Sodium 100 Chloride 0.9% 100 ml @ 33 .333 mls/hr IVPB Q12H [facility] Rx#:[id number] cefTRIAXone 2 gm In 50 Sodium Chloride 0.9% 50 ml @ 100 mls/hr IVPB Q24H [facility] Rx#:[id number] Oral 1080 118 Output: Urine 3350 575 Other: Voiding Method Indwelling Catheter Indwelling Catheter Indwelling Catheter - Exam GENERAL DESCRIPTION: An elderly female lying in bed in no distress RESPIRATORY SYSTEM: Unlabored breathing , decreased breath sounds at bases HEART: S1 S2 regular rate and rhythm , ABDOMEN: Soft , no tenderness EXTREMITIES: No edema feet - Labs CBC & Chem 7: 05/31/24 08:29 05/31/24 08:29 Labs: Abnormal Lab Results - Last 24 Hours (Table) 05/30/24 05/30/24 05/30/24 Range/Units 11:17 16:43 19:54 RBC (3.80-5.40) m/uL Hgb (11.4-16.0) gm/dL Hct (34.0-46.0) % MCV (80.0-100.0) fL Plt Count (150-450) k/uL Sodium (137-145) mmol/L BUN (7-17) mg/dL Creatinine (0.52-1.04) mg/dL Glucose (74-99) mg/dL POC Glucose (mg/dL) 208 H 167 H 209 H (70-110) mg/dL C-Reactive Protein (<1.0) mg/dL 05/31/24 05/31/24 05/31/24 Range/Units 05:53 08:29 08:29 RBC 3.08 L (3.80-5.40) m/uL Hgb 9.9 L (11.4-16.0) gm/dL Hct 30.9 L (34.0-46.0) % MCV 100.2 H (80.0-100.0) fL Plt Count 469 H (150-450) k/uL Sodium 135 L (137-145) mmol/L BUN 33 H (7-17) mg/dL Creatinine 1.28 H (0.52-1.04) mg/dL Glucose 161 H (74-99) mg/dL POC Glucose (mg/dL) 169 H (70-110) mg/dL C-Reactive Protein 6.6 H (<1.0) mg/dL Microbiology - Last 24 Hours (Table) 05/25/24 12:12 Blood Culture - Final Blood Assessment and Plan (1) Penicillin allergy Current Visit: Yes Status: Acute Code(s): Z88.0 - ALLERGY STATUS TO PENICILLIN SNOMED Code(s): 55783535 (2) Sepsis Current Visit: Yes Status: Acute Code(s): A41.9 - SEPSIS, UNSPECIFIED ORGANISM SNOMED Code(s): 08426965 (3) UTI (urinary tract infection) Current Visit: Yes Status: Acute Code(s): N39.0 - URINARY TRACT INFECTION, SITE NOT SPECIFIED SNOMED Code(s): 79574109 Plan: 1patient presented to hospital with sepsis in this patient who did have a fever elevated white count source likely UTI likely from the gram-negative pathogen clinic suspicious low for gram-positive bacteria patient did have elevated creatinine however CT abdominal pelvis markedly dilated left renal collecting system and concern for possible obstruction at the ureteropelvic junction for the patient has been evaluated by urology however not recommending any surgical intervention, initial urine culture has been negative 2-patient is status post cystoscopy and left ureteral stent placement with evidence of purulent urine repeat UA significantly positive cultures however culture has been negative, patient did well on IV Rocephin started yesterday she will finish today with a 10-day course of oral Ceftin and close outpatient follow-up Dictation was produced using [facility] dictation software. please excuse any grammatical, word or spelling errors. Time with Patient: Less than 30
[2024-05-31 16:42] LABS: Glucose,Whole Blood 233 mg/dL (70-110)
[2024-05-31] MEDS: FUROSEMIDE 10 MG/ML 4 ML VIAL IV STA (17:17)
== END 2024-05-31 18:08 | DRG 853 ==
LOC: EC 06:13 → 3SCARD 08:01
PROVIDERS: ADMIT Student in an Organized Health Care Education/Training Program; ATTEND Student in an Organized Health Care Education/Training Program
PROC: 0T778DZ Dilation of Left Ureter with Intraluminal Device, Via Natural or Artificial Opening Endoscopic (ICD-10-PCS; principal; 2024-05-28 07:00)
DX: A41.50 Gram-negative sepsis, unspecified (principal); G93.41 Metabolic encephalopathy; N17.0 Acute kidney failure with tubular necrosis; N13.6 Pyonephrosis; E11.22 Type 2 diabetes mellitus with diabetic chronic kidney disease; D53.9 Nutritional anemia, unspecified; N18.32 Chronic kidney disease, stage 3b; E11.65 Type 2 diabetes mellitus with hyperglycemia; R65.20 Severe sepsis without septic shock; I12.9 Hypertensive chronic kidney disease with stage 1 through stage 4 chronic kidney disease, or unspecified chronic kidney disease; E87.70 Fluid overload, unspecified; E78.5 Hyperlipidemia, unspecified; M10.9 Gout, unspecified; D75.89 Other specified diseases of blood and blood-forming organs; B96.89 Other specified bacterial agents as the cause of diseases classified elsewhere; K57.90 Diverticulosis of intestine, part unspecified, without perforation or abscess without bleeding; W19.XXXA Unspecified fall, initial encounter; Y92.009 Unspecified place in unspecified non-institutional (private) residence as the place of occurrence of the external cause; Z87.891 Personal history of nicotine dependence; Z79.85 Long-term (current) use of injectable non-insulin antidiabetic drugs; Z79.84 Long term (current) use of oral hypoglycemic drugs; Z79.899 Other long term (current) drug therapy; Z88.0 Allergy status to penicillin
CPT/HCPCS: 36415; 36600; 51702; 71045; 71046; 74176; 80048; 80053; 81001; 82009; 82607; 82746; 82803; 82805; 83036; 83605; 83735; 84443; 85025; 85027; 86140; 87040; 87086; 87636; 93005; 96361; 96365; 96366; 96367; 96372; 96375; 99291

== ENCOUNTER → 2024-07-13 | Outpatient (CLI) | payer MEDICARE ==
[2024-07-13 15:45] LABS: Basophils # (A) 0.08 X 10*3/uL (0.00-0.10); Basophils % (A) 1.1 %; Eosinophils # (A) 0.29 X 10*3/uL (0.04-0.35); Eosinophils % (A) 3.9 %; HCT 40.9 % (37.2-46.3); HGB 12.5 g/dL (12.0-15.0); Lymphocytes % (A) 36.7 %; MCH 30.8 pg (27.0-32.0); MCHC 30.6 g/dL (32.0-37.0); MCV 100.7 FL (80.0-97.0); Mean Platelet Volume 9.3 FL (9.5-12.2); Monocytes # (A) 0.57 X 10*3/uL (0.20-1.00); Monocytes % (A) 7.7 %; NRBC Per 100 WBC 0 X 10*3/uL (0.00-0.01); Neutrophils # (A) 3.71 X 10*3/uL (1.80-7.70); Neutrophils % (A) 50.5 %; Platelet Count 275 X 10*3/uL (140-440); RBC 4.06 X 10*6/uL (4.10-5.20); RDW 12.8 % (11.5-14.5); WBC 7.36 X 10*3/uL (4.50-10.00)
[2024-07-13 15:54] LABS: BUN/Creat Ratio 15.67 Ratio (12.00-20.00); Blood Urea Nitrogen 28.2 mg/dL (9.0-27.0); Calcium 9.3 mg/dL (8.7-10.3); Carbon Dioxide 19.5 mmol/L (21.6-31.8); Chloride 108 mmol/L (96-109); Glucose 187 mg/dL (70-110); Sodium 140 mmol/L (135-145)
[2024-07-13 16:56] LABS: Appearance,Urine Clear (Clear); Bilirubin,Urine Negative (Negative); Blood,Urine Moderate (Negative); Color,Urine Yellow (Yellow); Ketones,Urine Negative (Negative); Nitrite,Urine Negative (Negative); PH, Urine 5.5; Specific Gravity,Urine 1.021 (1.001-1.030); Urobilinogen,Urine 0.2 E.U./DL
[2024-07-13 17:35] LABS: Bacteria,Urine Trace (None Seen)
== END | disposition home or self-care (01) ==
LOC: LABWHC1 09:07
PROVIDERS: ATTEND Urology
DX: Z01.818 Encounter for other preprocedural examination (principal); N13.30 Unspecified hydronephrosis
CPT/HCPCS: 80048; 81001; 85025; 86850; 86900; 86901; 87086